=== PATIENT | male | born 1960 | race Caucasian/White ===

== ENCOUNTER 2017-06-11 13:18 | Emergency (ER) | payer SELFPAY ==
[~2017-06-11 13:18] MED LIST: Iopamidol 370 76% 100 ML VIAL ONE
[2017-06-11 13:50] LABS: #Basophils 0.1 thou/uL (0.0-0.2); #Eosinphils 0.2 thou/uL (0.0-0.7); #Lymphocytes 2.2 thou/uL (1.20-3.40); #Monocytes 0.5 thou/uL (0.11-0.59); #Neutrophils 5.7 thou/uL (1.40-6.50); %Basophils 1.3 % (0.0-1.0); %Eosinophils 2.5 % (0.0-10.0); %Lymphocytes 25.7 % (21.0-51.0); %Monocytes 5.7 % (0.0-10.0); Mean Platelet Volume 8.9 fL (7.4-10.4); White Blood Cell (WBC) Count 8.7 thou/uL (4.8-10.8)
--- NOTE | 2017-06-11 13:59 | RAD ---
LEFT SHOULDER THREE VIEWS: History: Shoulder pain. FINDINGS: No evidence of fracture or dislocation. AC joint normally aligned. IMPRESSION: No acute abnormality. POS: [facility]
--- NOTE | 2017-06-11 14:01 | RAD ---
TWO VIEW CHEST: History: Chest pain. FINDINGS: Lungs appear clear. No infiltrate identified. The vascular and interstitial markings are mildly prom inent. No effusion. IMPRESSION: Mild increased interstitial markings. No focal infiltrate identified. POS: [facility]
[2017-06-11 14:04] LABS: ALT (SGPT) 36 U/L (8-55); AST (SGOT) 32 U/L (5-34); Alkaline Phosphatase 109 U/L (40-150); Anion Gap 13 mmol/L (10-20); BUN (Urea Nitrogen) 16 mg/dL (8.4-25.7); Bilirubin, Total 0.6 mg/dL (0.2-1.2); Calc. Creatinine Clearance 0 mL/min (70-130); Calcium 9.8 mg/dL (7.8-10.44); Carbon Dioxide 27 mmol/L (22-29); Chloride 102 mmol/L (98-107); Estimated GFR-MDRD Greater than 90; Globulin 3.7 g/dL (2.4-3.5)
[2017-06-11 14:05] LABS: Troponin I Less than 0.010 ng/mL (< 0.028)
--- NOTE | 2017-06-11 15:41 | CT ---
CT ARTERIOGRAM CHEST WITH IV CONTRAST AND 3D MIP IMAGING: History: Chest pain, dyspnea. FINDINGS: There is good contrast opacification of the pulmonary arteries with the exception of an artery leadi ng to a lobulated mass in the right lower lobe. The mass is 1.9 x 1.8 cm greatest diameters on the a xial images. There is nodular peripheral scarring or atelectasis at the left anterior lung base and left lateral lung base. Lobulated left hilar adenopathy measures up to 6.9 cm in length x 2.9 cm width. No pneumothorax is a pparent. Old ununited right posterior rib fracture evident. IMPRESSION: 1. Left lower lobe mass with left hilar adenopathy. Lung neoplasm is favored. 2. No CT evidence of pulmonary embolus. POS: [facility]
--- NOTE | 2017-08-02 11:38 | EKG ---
Test Reason : LT ARM PAIN Blood Pressure : / mmHG Vent. Rate : 105 BPM Atrial Rate : 340 BPM P-R Int : 000 ms QRS Dur : 078 ms QT Int : 346 ms P-R-T Axes : 000 017 010 degrees QTc Int : 457 ms Atrial fibrillation with rapid ventricular response Abnormal ECG Confirmed by NALDO KAUFMAN D.O. ([id number]), content editor WILLIAM MUJICA ([id number]) on 08/02/2017 11:38:10 AM Referred By: MARY Confirmed By:NALDO KAUFMAN D.O.
--- NOTE | 2017-08-02 11:38 | EKG ---
Test Reason : Blood Pressure : / mmHG Vent. Rate : 092 BPM Atrial Rate : 277 BPM P-R Int : 000 ms QRS Dur : 090 ms QT Int : 382 ms P-R-T Axes : 000 002 004 degrees QTc Int : 472 ms Atrial fibrillation Inferior infarct , age undetermined Abnormal ECG Confirmed by NALDO KAUFMAN D.O. ([id number]), telegraph editor WILLIAM MUJICA ([id number]) on 08/02/2017 11:38:26 AM Referred By: Confirmed By:NALDO KAUFMAN D.O.
== END 2017-06-11 16:04 | disposition home or self-care (01) ==
LOC: SCSER 13:18
DX: M25.512 Pain in left shoulder (principal); I48.91 Unspecified atrial fibrillation; I10 Essential (primary) hypertension; R91.8 Other nonspecific abnormal finding of lung field; F17.210 Nicotine dependence, cigarettes, uncomplicated; Z79.82 Long term (current) use of aspirin
CPT/HCPCS: 71020; 71275; 80053; 82553; 84484; 85025; 85379; 93005; 96360; 99406

== ENCOUNTER 2017-08-19 22:08 | Inpatient (IN) | payer SELFPAY ==
[2017-08-20] MEDS ORDERED: Morphine 4 MG/ML VIAL ONE (00:13)
[2017-08-20 00:23] LABS: Actual Bicarbonate (HCO3a) 22.7 mEq/L (22-26); Base Excess (BEa) -0.8 mEq/L (0 (+/-) 2.5); CO2 Tension 34.2 mmHg (35.0-45.0); O2 Tension (PaO2) 68.5 mmHg (80.0-100.0); pH, Arterial 7.44 (7.35-7.45)
[2017-08-20 00:24] LABS: Analyzer IN Cardio ER; Calcium, Ionized 1.2 mmol/L (1.12-1.30); Hemoglobin (Hb) 12.5 g/dL (14.0-18.0); Puncture Site LRA
[2017-08-20 00:43] LABS: CKMB 0.8 ng/mL (0-6.6); Troponin I Less than 0.010 ng/mL (< 0.028)
[2017-08-20 01:54] LABS: Actual Bicarbonate (HCO3a) 23.1 mEq/L (22-26); Base Excess (BEa) -0.9 mEq/L (0 (+/-) 2.5); CO2 Tension 36.4 mmHg (35.0-45.0); O2 Tension (PaO2) 78.1 mmHg (80.0-100.0); pH, Arterial 7.42 (7.35-7.45)
[2017-08-20 01:55] LABS: Calcium, Ionized 1.2 mmol/L (1.12-1.30); Hematocrit-ABG 40.2 % (42.0-52.0); Hemoglobin (Hb) 12.5 g/dL (14.0-18.0)
[2017-08-20 01:56] LABS: Analyzer IN Cardio ER; Puncture Site LRA
[2017-08-20] MEDS ORDERED: HYDROcodone/Acetaminophen 5/325 mg Tablet ONE ×3 (02:02→13:46)
[2017-08-20] MEDS ORDERED: Lorazepam 2 MG/ML VIAL ONE (02:42)
[2017-08-20] MEDS ORDERED: HYDROcodone/Acetaminophen 5/325 mg Tablet PO PRN ×2 (03:34→04:42)
[2017-08-20] MEDS ORDERED: Morphine 10 MG/ML CARPUJECT SLOW IVP PRN (03:36)
[2017-08-20] MEDS ORDERED: Ondansetron HCl/PF 4 MG/2 ML Vial IVP PRN (03:40)
[2017-08-20] MEDS ORDERED: Ondansetron ODT 4 MG TAB SL PRN (03:40)
[2017-08-20] MEDS ORDERED: Acetaminophen 325 MG TAB PO PRN ×2 (03:40→04:42)
[2017-08-20] MEDS ORDERED: Lorazepam 2 MG/ML VIAL SLOW IVP SCH (03:45)
[2017-08-20] MEDS ORDERED: Senokot 8.6 MG TAB PO PRN (04:42)
[2017-08-20] MEDS ORDERED: Bisacodyl 5 MG TAB PO PRN (04:42)
[2017-08-20] MEDS ORDERED: cloNIDine 0.1 MG TAB PO PRN (04:42)
[2017-08-20] MEDS ORDERED: hydrALAZINE 20 MG/ML VIAL SLOW IVP PRN (04:42)
[2017-08-20] MEDS ORDERED: Nitroglycerin 0.4 MG TAB (25 Tab Bottle) SL PRN (04:42)
[2017-08-20] MEDS ORDERED: Mag-Al 1200 mg/1200 mg/30 ML UDCUP PO PRN (04:42)
[2017-08-20] MEDS ORDERED: Calcium Carbonate 500 MG ChewTAB PO PRN (04:42)
[2017-08-20] MEDS ORDERED: Loratadine 10 MG TAB PO PRN (04:42)
[2017-08-20 04:57] LABS: Troponin I Less than 0.010 ng/mL (< 0.028)
--- NOTE | 2017-08-20 06:26 | HP ---
DATE OF ADMISSION: 08/20/2017 PRIMARY CARE PHYSICIAN: Junior Washington M.D. CHIEF COMPLAINT: Chest pain. HISTORY OF PRESENT ILLNESS: Mr. Marie is a 57-year-old male with past medical history of hyperten davion and "irregular heartbeat" who presented to the Emergency Room in [place] with above-mentioned c omplaint. History is mainly obtained by the patient himself, but he is not able to provide much hist ory because of the BiPAP machine and persistent pain. History is mainly obtained by the record herbie mcdowell. Mr. Marie presented to [place] with complaints of left-sided drooping, difficulty breathing. He reported that he fell on 08/10/2017 and landed on the stairs to his tractor trailer with immediate pa in in the left lower rib. He saw his primary care physician on the 08/14/2017 and got some pain medi cations, but abruptly his symptoms worsened and he is more short of breath now and his pain has also worsened. He has not been having any specific fever or chills or cough. He denies any sick contacts . He denies any palpitations. Upon presentation to outside emergency room, his blood pressure was 174/90 and a pulse of 135. He wa s hypoxic with saturation of 91% on room air and he was tachypneic with respirations in 30s , tempera ture 98.5. He underwent general workup including a 12-lead EKG, which showed atrial fibrillation wit h rapid ventricular rate. He also underwent a CT angio of his chest, which showed low body infiltrat e bilaterally as well as left-sided segmental pulmonary embolism. He received one dose of subcutaneo us Lovenox 1 mg/kg dose as well as Rocephin and pain medications and was transferred to our facility. In our emergency room, he was in normal sinus rhythm; however, tachycardic. An ABG was done, which s howed CO2 of 34 and oxygen of 68 with a pH of 7.4. He was briefly treated with BiPAP and is now lit ayala admitted to [facility]. At the time of my evaluation, he wants to take the BiPAP off and will be evaluat ed on nasal cannula if he can keep his oxygen saturation up with just the help of oxygen by nasal can nuagata. PAST MEDICAL HISTORY: 1. Hypertension. 2. Dyslipidemia. 3. "Irregular heart rhythm." PAST SURGICAL HISTORY: None. PSYCHIATRIC HISTORY: No Anxiety, depression. SOCIAL HISTORY: He drinks socially, rarely; however, smokes 1 pack of cigarettes per day. No histor y of drug abuse. FAMILY HISTORY: Denies any history of blood clots or heart attacks in his family. ALLERGIES: No known medication allergies. CURRENT MEDICATIONS: Coumadin is listed as his home medication, but he is not able to provide much i nformation about that. He continues to complain of significant generalized pain and worse in his left chest going to his carolyn k. Otherwise unremarkable. REVIEW OF SYSTEMS: The following complete review of systems was negative, unless otherwise mentioned in the HPI or below: Constitutional: Weight loss or gain, ability to conduct usual activities. Skin: Rash, itching. Eyes: Double vision, pain. ENT/Mouth: Nose bleeding, neck stiffness, pain, tenderness. Cardiovascular: Palpitations, dyspnea on exertion, orthopnea. Respiratory: Shortness of breath, wheezing, cough, hemoptysis, fever or night sweats. Gastrointestinal: Poor appetite, abdominal pain, heartburn, nausea, vomiting, constipation, or diarr hea. Genitourinary: Urgency, frequency, dysuria, nocturia. Musculoskeletal: Pain, swelling. Neurologic/Psychiatric: Anxiety, depression. Allergy/Immunologic: Skin rash, bleeding tendency. LABORATORY EXAMINATION: His CBC shows WBCs at 21.7, platelet count of 194, hemoglobin 15.1, D-dimer elevated to 9.54. His serum chemistries show sodium of 135, chloride 97, glucose of 116, BNP of 281, otherwise unremarkable. Cardiac enzymes, troponin less than 0.010 x3. Chest x-ray by my review bita llanes at [place] [facility] shows mild to moderate pleural effusions bilaterally and left lower lobe infiltrate. CT angio is showing left lower lobe pulmonary embolism and probably in the right lower lobe branches as well as read by the radiologist. PHYSICAL EXAMINATION: VITAL SIGNS: Most recent vital signs, blood pressure 120/74, pulse of 88, respirations 24, temperatu re 98.5, saturating 95% on 3 liters oxygen by nasal cannula. Please note that these vital signs are from last night before he was put on BiPAP. GENERAL: He is fast asleep, but easily awoken. Immediately after waking up, he starts to get uncomf ortable and complains of pain on the side and wants the BiPAP off. No acute distress noticed. HEENT: Mucous membrane is moist and pink. No oropharyngeal exudate or erythema. Head is normocepha lic, atraumatic. Pupils are equal, reactive to light and accommodation. NECK: Supple without any lymphadenopathy, JVD or bruit. CHEST: Decreased breath sounds at bases without any wheezing, rales or rhonchi. Rate and rhythm is regular without any murmur, rubs or gallops. ABDOMEN: Obese, soft, nontender, nondistended with positive bowel sounds. EXTREMITIES: Free of any cyanosis, clubbing, or edema. NEUROLOGIC: Nonfocal. SKIN: Free of any rashes or bruises. Feels warm and dry to touch. PSYCHIATRIC: Mild anxiety noticed. IMPRESSION AND PLAN: 1. Bilateral pulmonary embolism. It is unclear if the patient is on Coumadin or not. We will need to confirm this from the pharmacy in the morning. Nevertheless, he will be started on treatment with 1 mg/kg of Lovenox b.i.d. for now. We will consult Pulmonary Medicine in the morning. We will try to wean him off of the BiPAP as the patient is eager to take the mask off and seems to be intolerant of it. He is a FULL CODE as I have discussed with him. 2. Community-acquired pneumonia. The patient has received Rocephin in the emergency room. At this time, we will continue with broad spectrum IV antibiotic in the form of levofloxacin. Blood cultures have been obtained and we will follow the results. 3. Atrial fibrillation with rapid ventricular response. The patient gives a vague history, which se ems that he might have history of atrial fibrillation, but nothing is documented in [facility]. We satish l go ahead and obtain 2D echocardiogram and consult Cardiology. The most likely scenario is atrial f ibrillation secondary to pulmonary embolism as well as pneumonia and sepsis. He will be on b.i.d. do se of Lovenox for the pulmonary embolism, which will provide adequate anticoagulation for atrial fibr illation as well. He is currently in normal sinus rhythm. We will request recommendations from Card iology as well. 4. Leukocytosis. This is secondary to sepsis and pneumonia. Continue to monitor and recheck labs i n the morning. 5. Sepsis. Antibiotics as above. We will add vancomycin until blood culture results are available. Continue gentle IV fluids and sepsis protocol. 6. Elevated BNP. The patient appears euvolemic at this time. We will obtain 2D echocardiogram to r ule out any cardiac dysfunction. 7. History of hypertension. Restart his home medication once confirmed and use p.r.n. antihypertens josy still then. 8. Code status: FULL CODE, discussed with the patient. 9. Deep venous thrombosis and gastrointestinal prophylaxis. DISPOSITION: Mr. Marie is being admitted to the Critical Care Unit for bilateral pulmonary emboli sm, pneumonia and atrial fibrillation with RVR. He can be stepped down to IMCU if he is able to be w eaned off of his BiPAP. Further management will depend upon his clinical course. He is critically i ll at this time.
[2017-08-20] MEDS ORDERED: Morphine 2 MG/ML SYRINGE ONE (06:42)
[2017-08-20] MEDS ORDERED: Enoxaparin Sodium 100 MG/ML SYRINGE SC SCH (09:00)
[2017-08-20] MEDS: Enoxaparin Sodium 100 MG/ML SYRINGE SC SCH ×2 (09:43→20:08)
[2017-08-20] MEDS ORDERED: Albuterol Sulfate 2.5 mg/3 ml Neb NEB PRN (11:09)
[2017-08-20] MEDS: Vancomycin HCl 1 GM in Premix Bag 1 BAG IVPB SCH ×2 (11:14→20:10)
[2017-08-20] MEDS ORDERED: FLU VACC QS2017-18 36 mo. & older 0.5 ML SYRINGE IM ONE (11:15)
[2017-08-20] MEDS ORDERED: Prevnar 13-Val Conj/PF 0.5 ML SYRINGE IM ONE (11:15)
[2017-08-20 11:29] LABS: ALT (SGPT) 20 U/L (8-55); AST (SGOT) 19 U/L (5-34); Albumin 3.7 g/dL (3.5-5.0); Alkaline Phosphatase 71 U/L (40-150); Anion Gap 14 mmol/L (10-20); BUN (Urea Nitrogen) 16 mg/dL (8.4-25.7); Calc. Creatinine Clearance 135 mL/min (70-130); Calcium 9.6 mg/dL (7.8-10.44); Carbon Dioxide 24 mmol/L (22-29); Chloride 101 mmol/L (98-107); Estimated GFR-MDRD Greater than 90; Globulin 3.7 g/dL (2.4-3.5); Glucose 108 mg/dL (70-105); Potassium 4.6 mmol/L (3.5-5.1); Protein, Total 7.4 g/dL (6.0-8.3); Sodium 134 mmol/L (136-145)
[2017-08-20 11:30] LABS: INR-International Normal Ratio 2.1; Prothrombin Time 24.5 SEC (12.0-14.7)
[2017-08-20 11:31] LABS: PTT 64.7 SEC (22.9-36.1)
--- NOTE | 2017-08-20 11:39 | RAD ---
CHEST 1 VIEW: Date: 08/20/17 HISTORY: Dyspnea. COMPARISON: 08/19/17. FINDINGS: Cardiac silhouette is magnified and upper limits of normal in size. It is partially obscured by worse janna bibasilar infiltrates. Pulmonary vasculature is engorged. No evidence of pneumothorax. Cardiac m onitor leads overlie the chest. IMPRESSION: Worsening pulmonary vascular congestion and patchy bibasilar infiltrates. POS: [facility]
--- NOTE | 2017-08-20 13:05 | CON ---
DATE OF CONSULTATION: 08/20/2017 REASON FOR CONSULTATION: Pulmonary embolism and pneumonia. HISTORY OF PRESENT ILLNESS: The patient is a 57-year-old male who is followed by Dr. Washington on an o utpatient basis with a history of an irregular heartbeat for which he takes Coumadin. He came to the emergency room last night with left-sided chest pain which was worse with inspiration. Symptoms hav e been present for about 2 days prior. He had not taken any medication for that. PAST MEDICAL HISTORY: Hypertension, hyperlipidemia. PAST SURGICAL HISTORY: None. SOCIAL HISTORY: He drinks about a case of beer per year, smokes 1 pack of cigarettes per day. Does not use any illicit drugs. He works in the [employer] field. FAMILY MEDICAL HISTORY: Unremarkable for pulmonary embolus. ALLERGIES: None. MEDICATIONS PRIOR TO ADMISSION: He says he was taking Coumadin at home. REVIEW OF SYSTEMS: Twelve point review of systems otherwise negative except for that listed above. PHYSICAL EXAMINATION: VITAL SIGNS: Temperature 99.1, pulse 98, respirations 34, O2 sat 99% on 3 liters, blood pressure 144 /65. GENERAL: He is awake and alert and in no distress. HEENT: Pupils react, sclerae anicteric. Oropharynx poor dentition. NECK: No JVD. LUNGS: Clear to auscultation anteriorly, slightly diminished breath sounds in the left base posterio rly. CARDIAC: S1, S2 regular, without murmur, rub or gallop. ABDOMEN: Soft, nontender. He has a bruise in his right lower quadrant from Lovenox injection. EXTREMITIES: No clubbing, cyanosis, or edema. LABORATORY DATA: INR was 2.1, PTT 64.7, pH 7.42, pCO2 36, pO2 78. Sodium 134, potassium 4.6, chlori de 101, CO2 24, BUN 16, creatinine 0.8, glucose 108. White blood cell count 21.7, hematocrit 42.3, p latelet count 194. CT pulmonary angiogram was reviewed and demonstrates possible emboli. He had a density in the left l gabriel base in June which now seems to be gone, but he does have some left hilar lymphadenopathy. H e also has a possible infiltrate in the left lower lobe. ASSESSMENT: 1. Pneumonia. 2. Pulmonary embolism. 3. History of atrial fibrillation. PLAN: 1. He was therapeutic on his Coumadin when he came in - I would recommend continuing the warfarin. 2. Agree with antibiotics. 3. He will need to have another CT scan versus x-ray in 4-6 weeks to follow up the lymphadenopathy a nd the nodular region in the left lower lobe. Thank you for the referral. I will follow with you.
[2017-08-20] MEDS: HYDROcodone/Acetaminophen 5/325 mg Tablet PO PRN ×2 (13:48→20:07)
[2017-08-20] MEDS: Warfarin Sodium 3 MG TAB PO SCH (17:02)
--- NOTE | 2017-08-20 20:00 | EKG ---
Test Reason : REPEAT Blood Pressure : / mmHG Vent. Rate : 081 BPM Atrial Rate : 081 BPM P-R Int : 184 ms QRS Dur : 092 ms QT Int : 372 ms P-R-T Axes : 023 003 022 degrees QTc Int : 432 ms Normal sinus rhythm Normal ECG Confirmed by DR. Maryan GARAY ([id number]) on 08/20/2017 8:00:41 PM Referred By: Confirmed By:DR. Maryan GARAY
[2017-08-20] MEDS: guaiFENesin ER 600 MG TAB PO SCH (20:07)
[2017-08-20] MEDS ORDERED: Furosemide 20 MG/2 ML VIAL SLOW IVP SCH (20:15)
[2017-08-20] MEDS ORDERED: Potassium Chloride 20 MEQ TAB PO SCH (20:15)
[2017-08-21] MEDS ORDERED: Ondansetron HCl/PF 4 MG/2 ML Vial IVP PRN (01:26)
[2017-08-21] MEDS ORDERED: Ondansetron ODT 4 MG TAB SL PRN (01:26)
--- NOTE | 2017-08-21 03:12 | CON ---
DATE OF CONSULTATION: 08/20/2017 REASON FOR CONSULTATION: ? Possible atrial fibrillation (no EKGs to document that at the present joss mario alberto). HISTORY OF PRESENT ILLNESS: Mr. Marie is a 57-year-old gentleman with history apparently of pulmo nary embolism who came to the emergency room with difficulty breathing. He had some rapid heart rate , apparently, in the emergency room, he says in [place], the ? atrial fibrillation, but unfortunatel y there is no EKGs from there. He was brought here and was found to have pulmonary emboli, has been treated for that, although he has also apparently been started on Coumadin he said approximately 2 mo nths ago for "blood clots." PAST MEDICAL HISTORY: 1. Hypertension 2. ? pulmonary emboli. 3. Irregular heart rhythm. PAST SURGICAL HISTORY: None. PSYCHIATRIC HISTORY: He feels anxious now. SOCIAL HISTORY: He does smoke, he is trying to quit. FAMILY HISTORY: No history of coronary artery disease at a young age. ALLERGIES: None known. MEDICATIONS: Coumadin. REVIEW OF SYSTEMS: Constitutional: No significant weight gain or loss. Vision: No changes. Hearing: No changes. Pu lmonary: Positive for shortness of breath. Gastrointestinal: No nausea, vomiting, diarrhea. Skin: No rashes. Neurologic: No unilateral weakness or numbness. Skin: No rashes. PHYSICAL EXAMINATION: GENERAL: This is a pleasant gentleman resting comfortably in no distress. VITAL SIGNS: Blood pressure 136/59, pulse 100. NECK: Neck veins are normkal. Carotid normal upstrokes. LUNGS: Clear. CARDIAC: Normal S1, normal S2. ABDOMEN: Soft, nontender. EXTREMITIES: There is no edema. Peripheral pulses are intact in the feet. SKIN: Warm and dry. LABORATORY DATA: INR was 2.1. Blood gas: pH 7.44, pCO2 of 34, pO2 of 68.5, that was on 28% oxygen, the troponin less than 0.010. BNP 281. Chest x-ray: Pulmonary vascular congestion and patchy basi lar infiltrates. CT scan revealed pulmonary emboli looks to me like a left-sided infiltrate. ASSESSMENT: 1. ? atrial fibrillation, no documentation at the present time. 2. Pulmonary emboli. PLAN: 1. Try to obtain EKGs. 2. Repeat chest x-ray in the morning. 3. Echocardiogram pending. 4. EKG here was normal.
[2017-08-21 05:01] LABS: INR-International Normal Ratio 2.3; Prothrombin Time 26.2 SEC (12.0-14.7)
[2017-08-21] MEDS: Lorazepam 1 MG TAB PO PRN ×3 (05:19→20:46)
[2017-08-21] MEDS: HYDROcodone/Acetaminophen 5/325 mg Tablet PO PRN ×3 (05:21→20:44)
--- NOTE | 2017-08-21 08:22 | RAD ---
AP VIEW CHEST: HISTORY: Dyspnea. FINDINGS: AP view chest was obtained on 08/21/17. Comparison is made to previous exam from 08/19/17. AP view chest demonstrates calcification of the aorta. Some patchy areas of interstitial and lung pl eural calcifications seen. There is also calcification of the mitral annulus. No significant eviden ce of interstitial significant fibrosis. There is decreased extent of airspace opacity in the opacif ied left lower lobe. IMPRESSION: Improving aeration in the left lower lobe significant when compared to the previous day's exam as wel l as previous comparison CTA chest from 08/19/17. POS: [facility]
[2017-08-21] MEDS ORDERED: WARFARIN SODIUM 6 MG PO SCH (09:00)
[2017-08-21] MEDS: guaiFENesin ER 600 MG TAB PO SCH ×2 (09:23→20:46)
[2017-08-21] MEDS: Enoxaparin Sodium 100 MG/ML SYRINGE SC SCH (09:28)
[2017-08-21] MEDS: Vancomycin HCl 1 GM in Premix Bag 1 BAG IVPB SCH ×2 (09:28→20:47)
--- NOTE | 2017-08-21 11:06 | PRG ---
DATE OF SERVICE: 08/21/2017 SUBJECTIVE: He feels better and had no acute complaints. PHYSICAL EXAMINATION: VITAL SIGNS: Temperature 97.7, pulse 117, respirations 22, O2 sat 96% on 4 liters. HEENT: Unremarkable. NECK: No JVD. LUNGS: Clear without wheezing. CARDIAC: S1 and S2 regular. ABDOMEN: Soft. EXTREMITIES: No edema. LABORATORY DATA: INR 2.3. ASSESSMENT: 1. Pneumonitis. 2. Pulmonary embolism. 3. History of atrial fibrillation. PLAN: 1. Continue Coumadin. 2. X-ray is better today. 3. We would complete 7 days of antibiotics with the patient. 4. He will need a CT scan in 3-4 weeks to further evaluate the adenopathy.
--- NOTE | 2017-08-21 13:37 | PDOC.PN ---
- Subjective Encounter Start Date: 08/21/17 Encounter Start Time: 09:00 PAtient is seen today, alert and oriented, he remains SOB or coughing, he c/o of persistant chest pain and SOB. No dizziness. - Objective MAR Reviewed: Yes Vital Signs & Weight: Vital Signs (12 hours) Temp Pulse Resp BP Pulse Ox 08/21/17 11:40 98.5 F 129 H 20 149/79 H 91 L 08/21/17 09:39 117 H 22 H 96 08/21/17 07:50 98.5 F 129 H 20 119/67 92 L 08/21/17 06:21 122 H 25 H 96 08/21/17 03:39 98.4 F 105 H 24 H 133/67 98 08/21/17 02:52 101 H 26 H 97 Weight Weight 197 lb 1.6 oz I&O: 08/20/17 08/21/17 08/22/17 06:59 06:59 06:59 Intake Total 500 Output Total 400 Balance 100 Result Diagrams: 08/20/17 10:55 Radiology Reviewed by me: Yes Phys Exam - Physical Examination HEENT: PERRLA, moist MMs Neck: no nodes, no JVD Respiratory: no rhonchi, wheezing present Cardiovascular: RRR, no significant murmur Gastrointestinal: soft, non-tender Musculoskeletal: no edema, pulses present Neurological: non-focal, normal sensation Psychiatric: normal affect, A&O x 3 Dx/Plan (1) Bilateral pulmonary embolism Code(s): I26.99 - OTHER PULMONARY EMBOLISM WITHOUT ACUTE COR PULMONALE Status : Acute (2) Pneumonia Code(s): J18.9 - PNEUMONIA, UNSPECIFIED ORGANISM Status: Acute Qualifiers: Laterality: bilateral Lung location: lower lobe of lung (3) Acute respiratory failure with hypoxia Code(s): J96.01 - ACUTE RESPIRATORY FAILURE WITH HYPOXIA Status: Acute (4) Atrial fibrillation with RVR Code(s): I48.91 - UNSPECIFIED ATRIAL FIBRILLATION Status: Acute (5) Hypertension Code(s): I10 - ESSENTIAL (PRIMARY) HYPERTENSION Status: Acute - Plan cont current plan of care, continue antibiotics, PT/OT, respiratory therapy, out of bed/ambulate, DVT proph w/lovenox Plan: Pt has persistant SOB , he is on Lovenox and Coumedin INR is therapeutic, he still has Clots in lungs, Will follow pulmonary, he may need IVC filter if he coontinuosly form clots with INR therapeutic or Change to Xarelto or Eliquis. Patient has new oonset Afib, cardiology has been notified by nurse, Will start pt on po Cardizem 60mg PO now, avoide Albuteral meds. Patient bilateral infiltrates on levofloxacin and Rocephin, Continue with nebs iptratropium. Hypertension is well controlled. - Discharge Day Encounter end time: 09:30 Review of Systems - Review of Systems Constitutional: weakness, malaise Eyes: negative: Pain, Vision Change, Conjunctivae Inflammation, Eyelid Inflammation, Redness, Other ENT: negative: Ear Pain, Ear Discharge, Nose Pain, Nose Discharge, Nose Congestion, Mouth Pain, Mouth Swelling, Throat Pain, Throat Swelling, Other Respiratory: Cough, Shortness of Breath, SOB with Excertion, Pleuritic Pain, Wheezing Cardiovascular: chest pain. negative: palpitations, orthopnea, paroxysmal nocturnal dyspnea, edema, light headedness, other Gastrointestinal: negative: Nausea, Vomiting, Abdominal Pain, Diarrhea, Constipation, Melena, Hematochezia, Other Genitourinary: negative: Dysuria, Frequency, Incontinence, Hematuria, Retention , Other Musculoskeletal: negative: Neck Pain, Shoulder Pain, Arm Pain, Back Pain, Hand Pain, Leg Pain, Foot Pain, Other Skin: negative: Rash, Lesions, David, Bruising, Other Neurological: negative: Weakness, Numbness, Incoordination, Change in Speech, Confusion, Seizures, Other - Medications/Allergies Allergies/Adverse Reactions: Allergies Allergy/AdvReac Type Severity Reaction Status Date / Time No Known Drug Allergies Allergy Verified 08/20/17 10:46 Medications: Current Medications Acetaminophen (Tylenol) 650 mg PO Q4H PRN PRN Reason: Headache/Fever or Mild Pain Hydrocodone Bitart/Acetaminophen ([place] 5/325) 1 tab PO Q4H PRN PRN Reason: Mild-Moderate Pain (1-5) Hydrocodone Bitart/Acetaminophen ([place] 5/325) 2 tab PO Q4H PRN PRN Reason: Moderate to Severe Pain (6-10) Last Admin: 08/21/17 12:13 Dose: 2 tab Hydrocodone Bitart/Acetaminophen ([place] 5/325) 1 tab PO Q4H PRN PRN Reason: Moderate Pain (4-6) Al Hydroxide/Mg Hydroxide (Maalox) 15 ml PO Q4H PRN PRN Reason: Heartburn or Indigestion Albuterol Sulfate (Ventolin) 2.5 mg NEB Q2H PRN PRN Reason: Wheezing Albuterol/Ipratropium (Duoneb) 3 ml NEB [id number] [facility] Last Admin: 08/21/17 13:36 Dose: Not Given Benzonatate (Tessalon) 100 mg PO Q4H PRN PRN Reason: Cough Bisacodyl (Dulcolax) 10 mg PO DAILYPRN PRN PRN Reason: Constipation Calcium Carbonate (Tums) 1,000 mg PO Q4H PRN PRN Reason: Heartburn or Indigestion Clonidine (Catapres) 0.1 mg PO Q4H PRN PRN Reason: Systolic BP > 170 Diltiazem HCl (Cardizem Sr) 60 mg PO DAILY [facility] Diltiazem HCl (Cardizem Sr) 60 mg PO 1415 [facility] Stop: 08/21/17 17:00 Last Admin: 08/21/17 13:33 Dose: 60 mg Guaifenesin (Robitussin Sf) 200 mg PO Q4H PRN PRN Reason: Cough Guaifenesin (Mucinex) 1,200 mg PO Q12HR [facility] Last Admin: 08/21/17 09:23 Dose: 1,200 mg Hydralazine HCl (Apresoline) 10 mg SLOW IVP Q4H PRN PRN Reason: Systolic BP > 180 Levofloxacin 750 mg/ Device 150 mls @ 100 mls/hr IVPB 0600 [facility] Last Admin: 08/21/17 05:19 Dose: 150 mls Vancomycin HCl 1 gm/ Device 200 mls @ 200 mls/hr IVPB Q12HR [facility] Last Admin: 08/21/17 09:28 Dose: 200 mls Loratadine (Claritin) 10 mg PO DAILYPRN PRN PRN Reason: Sinus Symptoms Lorazepam (Ativan) 1 mg PO Q4H PRN PRN Reason: Anxiety/Agitation Last Admin: 08/21/17 10:13 Dose: 1 mg Morphine Sulfate (Morphine) 2 mg SLOW IVP Q2H PRN PRN Reason: Moderate to Severe Pain (4-10) Nitroglycerin (Nitrostat) 0.4 mg SL Q5MIN PRN PRN Reason: Chest Pain Senna (Senokot) 2 tab PO HSPRN PRN PRN Reason: Constipation Sodium Chloride (Flush - Normal Saline) 10 ml IVF PRN PRN PRN Reason: Saline Flush Tramadol HCl (Ultram) 50 mg PO Q4H PRN PRN Reason: Moderate Pain (4-6) Warfarin Sodium (Coumadin) 6 mg PO 1700 [facility] Last Admin: 08/20/17 17:02 Dose: 6 mg
[2017-08-21] MEDS ORDERED: Diltiazem HCl SR 60 mg Capsule PO SCH (14:15)
[2017-08-21] MEDS: Warfarin Sodium 3 MG TAB PO SCH (16:40)
--- NOTE | 2017-08-21 20:30 | PRG ---
DATE OF SERVICE: 08/21/2017 SUBJECTIVE: Mr. Marie is having severe pain when he coughs as in the side of his chest he said wh ere he fell and hit his chest. He feels short of breath when he has the pain. PHYSICAL EXAMINATION: VITAL SIGNS: His blood pressure is 129/81, pulse is variable, sometimes, he has been in atrial fibri llation with a rate of 130. LUNGS: Rales and scattered rhonchi. No wheezing. CARDIAC: Normal S1, normal S2. ABDOMEN: Soft, nontender. EXTREMITIES: No edema. ASSESSMENT: 1. Paroxysmal atrial fibrillation. 2. Pulmonary emboli. 3. Pain with inspiration and cough appears to be related to his ribs. PLAN: 1. Increase diltiazem. 2. Further care dictated by hospital course.
[2017-08-21 20:39] LABS: Vancomycin, Trough 8.6 ug/mL
[2017-08-21] MEDS ORDERED: Morphine 4 MG/ML Carpuject SLOW IVP PRN (21:13)
[2017-08-22] MEDS: Benzonatate 100 MG CAP PO PRN (01:36)
[2017-08-22] MEDS: traMADol HCl 50 MG TAB PO PRN ×2 (01:36→11:54)
[2017-08-22] MEDS: HYDROcodone/Acetaminophen 5/325 mg Tablet PO PRN ×4 (03:09→19:17)
[2017-08-22] MEDS: Lorazepam 1 MG TAB PO PRN ×4 (03:09→18:02)
[2017-08-22 05:51] LABS: INR-International Normal Ratio 3.8; Prothrombin Time 39.6 SEC (12.0-14.7)
[2017-08-22 07:11] LABS: Anion Gap 15 mmol/L (10-20); BUN (Urea Nitrogen) 20 mg/dL (8.4-25.7); Calc. Creatinine Clearance 129 mL/min (70-130); Calcium 9.5 mg/dL (7.8-10.44); Carbon Dioxide 22 mmol/L (22-29); Chloride 99 mmol/L (98-107); Estimated GFR-MDRD Greater than 90; Glucose 114 mg/dL (70-105); Potassium 3.8 mmol/L (3.5-5.1); Sodium 132 mmol/L (136-145)
[2017-08-22] MEDS ORDERED: Diltiazem HCl SR 60 mg Capsule PO SCH (09:00)
[2017-08-22] MEDS: guaiFENesin ER 600 MG TAB PO SCH ×2 (09:09→20:00)
[2017-08-22] MEDS: Vancomycin HCl 1 GM in Premix Bag 1 BAG IVPB SCH ×2 (09:11→20:02)
--- NOTE | 2017-08-22 09:53 | PDOC.PULPN ---
Progress Note: Subj/Obj - Subjective Date: 08/22/17 Time: 09:52 Narrative: The patient states that he feels better. However, he clearly looks sob - ROS Respiratory: congestion, cough - Objective Allergies/Adverse Reactions: Allergies Allergy/AdvReac Type Severity Reaction Status Date / Time No Known Drug Allergies Allergy Verified 08/20/17 10:46 Medications: Current Medications Acetaminophen (Tylenol) 650 mg PO Q4H PRN PRN Reason: Headache/Fever or Mild Pain Hydrocodone Bitart/Acetaminophen ([place] 5/325) 2 tab PO Q4H PRN PRN Reason: Moderate to Severe Pain (6-10) Last Admin: 08/22/17 09:10 Dose: 2 tab Hydrocodone Bitart/Acetaminophen ([place] 5/325) 1 tab PO Q4H PRN PRN Reason: Moderate Pain (4-6) Al Hydroxide/Mg Hydroxide (Maalox) 15 ml PO Q4H PRN PRN Reason: Heartburn or Indigestion Albuterol Sulfate (Ventolin) 2.5 mg NEB Q2H PRN PRN Reason: Wheezing Albuterol/Ipratropium (Duoneb) 3 ml NEB [id number] [facility] Last Admin: 08/22/17 07:03 Dose: 3 ml Benzonatate (Tessalon) 100 mg PO Q4H PRN PRN Reason: Cough Last Admin: 08/22/17 01:36 Dose: 100 mg Bisacodyl (Dulcolax) 10 mg PO DAILYPRN PRN PRN Reason: Constipation Calcium Carbonate (Tums) 1,000 mg PO Q4H PRN PRN Reason: Heartburn or Indigestion Clonidine (Catapres) 0.1 mg PO Q4H PRN PRN Reason: Systolic BP > 170 Diltiazem HCl (Cardizem Cd) 180 mg PO DAILY [facility] Last Admin: 08/22/17 09:10 Dose: 180 mg Guaifenesin (Robitussin Sf) 200 mg PO Q4H PRN PRN Reason: Cough Guaifenesin (Mucinex) 1,200 mg PO Q12HR [facility] Last Admin: 08/22/17 09:09 Dose: 1,200 mg Hydralazine HCl (Apresoline) 10 mg SLOW IVP Q4H PRN PRN Reason: Systolic BP > 180 Levofloxacin 750 mg/ Device 150 mls @ 100 mls/hr IVPB 0600 [facility] Last Admin: 08/22/17 04:49 Dose: 150 mls Vancomycin HCl 1 gm/ Device 200 mls @ 200 mls/hr IVPB Q12HR [facility] Last Admin: 08/22/17 09:11 Dose: 200 mls Loratadine (Claritin) 10 mg PO DAILYPRN PRN PRN Reason: Sinus Symptoms Lorazepam (Ativan) 1 mg PO Q4H PRN PRN Reason: Anxiety/Agitation Last Admin: 08/22/17 09:14 Dose: 1 mg Morphine Sulfate (Morphine) 2 mg SLOW IVP Q2H PRN PRN Reason: Moderate to Severe Pain (4-10) Last Admin: 08/21/17 23:09 Dose: 2 mg Nitroglycerin (Nitrostat) 0.4 mg SL Q5MIN PRN PRN Reason: Chest Pain Senna (Senokot) 2 tab PO HSPRN PRN PRN Reason: Constipation Sodium Chloride (Flush - Normal Saline) 10 ml IVF PRN PRN PRN Reason: Saline Flush Last Admin: 08/21/17 23:08 Dose: 10 ml Tramadol HCl (Ultram) 50 mg PO Q4H PRN PRN Reason: Moderate Pain (4-6) Last Admin: 08/22/17 01:36 Dose: 50 mg Warfarin Sodium (Coumadin) 6 mg PO 1700 [facility] Last Admin: 08/21/17 16:40 Dose: 6 mg MAR Reviewed: Yes Vital Signs: Vital Signs Temp 97.7 F 08/22/17 08:00 Pulse 123 H 08/22/17 08:00 Resp 18 08/22/17 08:00 BP 131/68 08/22/17 08:00 Pulse Ox 90 L 08/22/17 08:00 Intake & Output 08/21/17 08/22/17 08/22/17 18:59 06:59 18:59 Intake Total 370.5 Output Total 425 Balance -54.5 Intake: Intake, IV Amount 370.5 Levofloxacin 750 mg/D5W 150 750 mg In Premix Bag 1 bag @ 100 mls/hr IVPB 0600 [facility] Rx#:[id number] Morphine 2 mg SLOW IVP 0.5 Q2H PRN Rx#:[id number] Sodium Chloride 0.9% 10 20 ml IVF PRN PRN Rx#: [id number] Vancomycin HCl 1 gm In 200 Premix Bag 1 bag @ 200 mls/hr IVPB Q12HR [facility] Rx# :[id number] Output: Urine 425 Other: Voiding Method Urinal Urinal Urinal Progress Note: Exam - Physical Exam Deviation from normal: Has tachypnea HEENT: PERRLA, sclera anicteric Neck: no nodes, no JVD Cardiovascular: RRR, no significant murmur Respiratory: rales Gastrointestinal: soft, non-tender Musculoskeletal: no edema Neurological: non-focal, moves all 4 limbs Lymphatic: no nodes Psychiatric: normal affect, A&O x 3 Skin: no rash - Labs Result Diagrams: 08/22/17 05:13 Lab results: Laboratory Results - last 24 hr 08/21/17 08/22/17 08/22/17 20:00 05:13 05:13 PT 39.6 H INR 3.8 Sodium 132 L Potassium 3.8 Chloride 99 Carbon Dioxide 22 Anion Gap 15 BUN 20 Creatinine 0.82 Estimated GFR (MDRD) Greater than 90 Glucose 114 H Calcium 9.5 Vancomycin Trough 8.6 Progress Note: A/P - Problems (1) Acute respiratory failure with hypoxia Current Visit: Yes Status: Acute Code(s): J96.01 - ACUTE RESPIRATORY FAILURE WITH HYPOXIA (2) Bilateral pulmonary embolism Current Visit: Yes Status: Acute Code(s): I26.99 - OTHER PULMONARY EMBOLISM WITHOUT ACUTE COR PULMONALE (3) Pneumonia Current Visit: Yes Status: Acute Code(s): J18.9 - PNEUMONIA, UNSPECIFIED ORGANISM Qualifiers: Laterality: bilateral Lung location: lower lobe of lung - Time Spent with Patient Time: 50% of the time was spent in coordination of care (as documented) at patient's floor/unit and/or counseling patient. - Plan Plan: the patient needs to continue the intravenous antibiotics. I think he will require several more days in the hospital. If discharged over the weekend, he will need followup in 3-4 weeks with a repeat CT scan of the chest. His Coumadin dose needs to be reduced and/or held because his INR is 3.8 today
--- NOTE | 2017-08-22 12:20 | PDOC.PN ---
- Subjective Encounter Start Date: 08/22/17 Encounter Start Time: 09:30 Patient is seen today, alert and oriented. No other concern snoted. he continuos to cough and Feeling warm today. - Objective MAR Reviewed: Yes Vital Signs & Weight: Vital Signs (12 hours) Temp Pulse Resp BP Pulse Ox 08/22/17 10:40 127 H 24 H 92 L 08/22/17 08:00 97.7 F 123 H 18 131/68 90 L 08/22/17 07:03 129 H 26 H 90 L 08/22/17 04:00 98.2 F 122 H 20 148/71 H 90 L 08/22/17 03:59 95 08/22/17 03:05 97.9 F 136 H 20 118/67 92 L Weight Weight 197 lb 1.6 oz I&O: 08/21/17 08/22/17 08/23/17 06:59 06:59 06:59 Intake Total 500 370.5 Output Total 400 425 Balance 100 -54.5 Result Diagrams: 08/22/17 05:13 Phys Exam - Physical Examination HEENT: PERRLA, moist MMs Neck: no nodes, no JVD Respiratory: no rhonchi, wheezing present Cardiovascular: RRR, no significant murmur Gastrointestinal: soft, non-tender Musculoskeletal: no edema, pulses present Neurological: non-focal, normal sensation Dx/Plan (1) Bilateral pulmonary embolism Code(s): I26.99 - OTHER PULMONARY EMBOLISM WITHOUT ACUTE COR PULMONALE Status : Acute (2) Pneumonia Code(s): J18.9 - PNEUMONIA, UNSPECIFIED ORGANISM Status: Acute Qualifiers: Laterality: bilateral Lung location: lower lobe of lung (3) Acute respiratory failure with hypoxia Code(s): J96.01 - ACUTE RESPIRATORY FAILURE WITH HYPOXIA Status: Acute (4) Atrial fibrillation with RVR Code(s): I48.91 - UNSPECIFIED ATRIAL FIBRILLATION Status: Acute (5) Hypertension Code(s): I10 - ESSENTIAL (PRIMARY) HYPERTENSION Status: Acute - Plan cont current plan of care, continue antibiotics, PT/OT, respiratory therapy, incentive spirometry, DVT proph w/lovenox - Pt has persistant SOB , he is on Lovenox and Coumedin INR is therapeutic, he still has Clots in lungs, Will follow pulmonary, he may need IVC filter if he coontinuosly form clots with INR therapeutic or Change to Xarelto or Eliquis but since cardiology and pulmonary on board I will leave that decision to them and follow recommedations. --Patient has new oonset Afib, cardiology has been notified by nurse, Will start pt on po Cardizem 60mg PO but Rate not controlled, cardiology recommeded increas dose, avoide Albuteral meds. --Patient bilateral infiltrates on levofloxacin and Rocephin, Continue with nebs iptratropium. --Hypertension is well controlled. DvT prophylaxis: Lovenox. -- Anxiety, Will do Xanax 0.25mg q 6hrs PRN - Discharge Day Encounter end time: 10:00 Review of Systems - Review of Systems Constitutional: sweats Eyes: negative: Pain, Vision Change, Conjunctivae Inflammation, Eyelid Inflammation, Redness, Other ENT: negative: Ear Pain, Ear Discharge, Nose Pain, Nose Discharge, Nose Congestion, Mouth Pain, Mouth Swelling, Throat Pain, Throat Swelling, Other Respiratory: Cough, Shortness of Breath, SOB with Excertion, Pleuritic Pain, Wheezing Cardiovascular: negative: chest pain, palpitations, orthopnea, paroxysmal nocturnal dyspnea, edema, light headedness, other Gastrointestinal: negative: Nausea, Vomiting, Abdominal Pain, Diarrhea, Constipation, Melena, Hematochezia, Other Genitourinary: negative: Dysuria, Frequency, Incontinence, Hematuria, Retention , Other Musculoskeletal: negative: Neck Pain, Shoulder Pain, Arm Pain, Back Pain, Hand Pain, Leg Pain, Foot Pain, Other Skin: negative: Rash, Lesions, David, Bruising, Other Neurological: negative: Weakness, Numbness, Incoordination, Change in Speech, Confusion, Seizures, Other - Medications/Allergies Allergies/Adverse Reactions: Allergies Allergy/AdvReac Type Severity Reaction Status Date / Time No Known Drug Allergies Allergy Verified 08/20/17 10:46 Medications: Current Medications Acetaminophen (Tylenol) 650 mg PO Q4H PRN PRN Reason: Headache/Fever or Mild Pain Hydrocodone Bitart/Acetaminophen ([place] 5/325) 2 tab PO Q4H PRN PRN Reason: Moderate to Severe Pain (6-10) Last Admin: 08/22/17 09:10 Dose: 2 tab Hydrocodone Bitart/Acetaminophen ([place] 5/325) 1 tab PO Q4H PRN PRN Reason: Moderate Pain (4-6) Al Hydroxide/Mg Hydroxide (Maalox) 15 ml PO Q4H PRN PRN Reason: Heartburn or Indigestion Albuterol Sulfate (Ventolin) 2.5 mg NEB Q2H PRN PRN Reason: Wheezing Albuterol/Ipratropium (Duoneb) 3 ml NEB [id number] [facility] Last Admin: 08/22/17 10:40 Dose: 3 ml Benzonatate (Tessalon) 100 mg PO Q4H PRN PRN Reason: Cough Last Admin: 08/22/17 01:36 Dose: 100 mg Bisacodyl (Dulcolax) 10 mg PO DAILYPRN PRN PRN Reason: Constipation Calcium Carbonate (Tums) 1,000 mg PO Q4H PRN PRN Reason: Heartburn or Indigestion Clonidine (Catapres) 0.1 mg PO Q4H PRN PRN Reason: Systolic BP > 170 Diltiazem HCl (Cardizem Cd) 180 mg PO DAILY [facility] Last Admin: 08/22/17 09:10 Dose: 180 mg Guaifenesin (Robitussin Sf) 200 mg PO Q4H PRN PRN Reason: Cough Guaifenesin (Mucinex) 1,200 mg PO Q12HR [facility] Last Admin: 08/22/17 09:09 Dose: 1,200 mg Hydralazine HCl (Apresoline) 10 mg SLOW IVP Q4H PRN PRN Reason: Systolic BP > 180 Levofloxacin 750 mg/ Device 150 mls @ 100 mls/hr IVPB 0600 [facility] Last Admin: 08/22/17 04:49 Dose: 150 mls Vancomycin HCl 1 gm/ Device 200 mls @ 200 mls/hr IVPB Q12HR [facility] Last Admin: 08/22/17 09:11 Dose: 200 mls Loratadine (Claritin) 10 mg PO DAILYPRN PRN PRN Reason: Sinus Symptoms Lorazepam (Ativan) 1 mg PO Q4H PRN PRN Reason: Anxiety/Agitation Last Admin: 08/22/17 09:14 Dose: 1 mg Morphine Sulfate (Morphine) 2 mg SLOW IVP Q2H PRN PRN Reason: Moderate to Severe Pain (4-10) Last Admin: 08/21/17 23:09 Dose: 2 mg Nitroglycerin (Nitrostat) 0.4 mg SL Q5MIN PRN PRN Reason: Chest Pain Senna (Senokot) 2 tab PO HSPRN PRN PRN Reason: Constipation Sodium Chloride (Flush - Normal Saline) 10 ml IVF PRN PRN PRN Reason: Saline Flush Last Admin: 08/21/17 23:08 Dose: 10 ml Tramadol HCl (Ultram) 50 mg PO Q4H PRN PRN Reason: Moderate Pain (4-6) Last Admin: 08/22/17 11:54 Dose: 50 mg Warfarin Sodium (Coumadin) 6 mg PO 1700 [facility] Last Admin: 08/21/17 16:40 Dose: 6 mg
[2017-08-22] MEDS: Diabetic Tussin 200 MG/10 ML UDCUP PO PRN ×2 (13:31→18:07)
[2017-08-22 15:36] LABS: CO2 Tension 30.1 mmHg (35.0-45.0); O2 Tension (PaO2) 50.2 mmHg (80.0-100.0); pH, Arterial 7.43 (7.35-7.45)
[2017-08-22 15:39] LABS: Actual Bicarbonate (HCO3a) 19.7 mEq/L (22-26); Base Excess (BEa) -3.6 mEq/L (0 (+/-) 2.5); Hematocrit-ABG 42.2 % (42.0-52.0); Hemoglobin (Hb) 12.4 g/dL (14.0-18.0)
[2017-08-22 15:40] LABS: Calcium, Ionized 1.1 mmol/L (1.12-1.30); Puncture Site RRA
[2017-08-22 15:42] LABS: ALV-art Gradient 198.975 (0-20)
[2017-08-22] MEDS ORDERED: Digoxin 0.5 MG/2 ML AMP SLOW IVP SCH ×2 (15:45→18:00)
--- NOTE | 2017-08-22 15:56 | PRG ---
DATE OF CONSULTATION: 08/22/2017 SUBJECTIVE: Mr. Marie continues to have a rapid heart rate about 120-130 beats a minute, atrial f ibrillation, previously was paroxysmal and now it is persistent. The patient continues to have some trouble breathing and it hurts when he coughs. PHYSICAL EXAMINATION: VITAL SIGNS: Blood pressure 133/67, pulse 110-130, atrial fibrillation. LUNGS: No wheezing. CARDIAC: Irregularly irregular and tachycardic. ABDOMEN: Soft and nontender. ASSESSMENT: 1. Atrial fibrillation, now persistent rates. Continued to be high despite diltiazem CD 180 mg a da y. 2. Chronic obstructive pulmonary disease. 3. History of pulmonary emboli. PLAN: 1. Continue Coumadin. 2. Increase diltiazem with tomorrow's dose. 3. Add digoxin. We will give loading dose today intravenously and oral dose tomorrow. 4. Coumadin levels are high. Coumadin is being held currently. Dr. Brown is to see this too [place]
--- NOTE | 2017-08-22 16:03 | RAD ---
FRONTAL RADIOGRAPH CHEST 08/22/17 COMPARISON: 08/20/17 and 08/19/17. HISTORY: Shortness of breath. FINDINGS: A prior study in this patient's jacket labeled 08/21/17 is actually not this patient's radiograph. Steph s, the most recent prior radiograph is the 08/20/17 exam. When compared to the 08/20/17 examination, the pleural and parenchymal opacity within the left hemitho rax is worsened significantly. The left pleural effusion present is now moderate to large. There is s hift of the mediastinal structures slightly to the right, slightly worsened. Perihilar and bibasilar air space disease is noted, left greater than right, worsened. IMPRESSION: Marked enlargement in previously noted left pleural effusion, now moderate to large in size. There is significant worsening of bilateral perihilar and bibasilar interstitial and alveolar opacity. POS: [facility]
[2017-08-22] MEDS ORDERED: Lidocaine 1% (PF) 30 ML VIAL ONE (16:18)
[2017-08-22 17:18] LABS: Body Fluid Source PLEURAL FLUID; Clarity Cloudy/Turbid (Clear)
[2017-08-22 17:19] LABS: BF Color Yellow; BF RBC Count - Manual 4925 /cumm; RBC Background Count 0.003; Tube # EDTA; WBC/NonHematic-Auto 2460 /cumm
[2017-08-22 17:23] LABS: Pleural Fluid, Protein 4.7 g/dL
[2017-08-22] MEDS ORDERED: Furosemide 20 MG/2 ML VIAL SLOW IVP SCH (18:00)
--- NOTE | 2017-08-22 18:39 | RAD ---
CHEST ONE VIEW 08/22/17 HISTORY: Thoracentesis. COMPARISON: Chest one view from same day. FINDINGS: Mild size decrease left layering effusion. Remainder of exam is unchanged. No large pneumothorax. IMPRESSION: Mild interval size decreased left layering pleural effusion without pneumothorax. POS: [facility]
[2017-08-22 19:25] LABS: BF Segmented Neutrophils 75 %; Cell Count Non Hematic 13 %; Eosinophils 1 %; Lymphocytes 10 %
--- NOTE | 2017-08-22 21:10 | PDOC.EVN ---
Event Note - Event Note Event Note: Code green called due to increased resp distress. Vitals noted. Pt in mild resp distress. Stat labs/CXR ordered. Will transfer to [facility] for close monitoring Update(0320 on 08/23/17. RN called - Patient agitated - requiring 4 point restraints. O2 sats dropping due to agitation. Tried BiPAP/Ativan without much help. I d/w Dr Clancy. Will electively intubate - Residents notified.
--- NOTE | 2017-08-22 21:32 | RAD ---
CHEST ONE VIEW 08/22/17 HISTORY: Shortness of breath. COMPARISON: Chest one view same day. FINDINGS: There is continued layering of the left pleural effusion. No pneumothorax. Multifocal air space opaci ties persists. Some of these opacities are nodular in the right lung. IMPRESSION: 1. Continued redistribution of the left layering pleural effusion. 2. Nodular densities both lungs. There is a known left lower lobe pulmonary embolism and the opa cification could be sequela of hemorrhage and infarction. Same is true for the right lower lobe. Cont inued followup recommended. POS: [facility]
[2017-08-22 21:33] LABS: Band 5 % (5-11); Hemoglobin 12.6 g/dL (14.0-18.0); Lymphocytes 6 % (21-51); MDiff Complete? YES; Mean Corpuscular HGB CONC 33.1 g/dL (32.0-36.0); Mean Corpuscular Hemoglobin 31.2 pg (27.0-31.0); Mean Corpuscular Volume 94.1 fl (80.0-94.0); Mean Platelet Volume 7.7 fL (7.4-10.4); Monocytes 3 % (0-10); Neutrophil 86 % (42-75); PLT Morphology Comment Appears Adequate; Platelet Count 324 thou/uL (130-400); RBC Distribution Width 12.5 % (11.5-14.5); Red Blood Cell (RBC) Count 4.03 mill/uL (4.70-6.10); White Blood Cell (WBC) Count 20.4 thou/uL (4.8-10.8)
[2017-08-22 21:38] LABS: ALT (SGPT) 16 U/L (8-55); AST (SGOT) 31 U/L (5-34); Albumin 3.3 g/dL (3.5-5.0); Alkaline Phosphatase 63 U/L (40-150); Anion Gap 16 mmol/L (10-20); BUN (Urea Nitrogen) 21 mg/dL (8.4-25.7); Bilirubin, Total 0.8 mg/dL (0.2-1.2); Calc. Creatinine Clearance 124 mL/min (70-130); Calcium 9.3 mg/dL (7.8-10.44); Carbon Dioxide 20 mmol/L (22-29); Chloride 94 mmol/L (98-107); Estimated GFR-MDRD Greater than 90; Globulin 3.7 g/dL (2.4-3.5); Glucose 112 mg/dL (70-105); Magnesium 1.5 mg/dL (1.6-2.6); Potassium 4.2 mmol/L (3.5-5.1); Sodium 126 mmol/L (136-145)
[2017-08-22 21:41] LABS: CKMB 5.4 ng/mL (0-6.6); Troponin I Less than 0.010 ng/mL (< 0.028)
[2017-08-22] MEDS: Morphine 2 MG/ML SYRINGE SLOW IVP PRN (22:04)
[2017-08-22] MEDS ORDERED: Magnesium 2 GM/NS 0.9% 100 ML 2 GM in Premix Bag 1 BAG IVPB SCH (22:45)
--- NOTE | 2017-08-22 23:17 | OP ---
DATE OF SERVICE: 08/22/2017 HISTORY OF PRESENT ILLNESS: A 57-year-old gentleman. I was called on an emergency basis to see the patient after having severe respiratory distress. PO2 was 50, pCO2 30, pH 7.43 on 40%. Stat chest x -ray showed a massive left pleural effusion which surprisingly had reoccurred overnight. He was clearly having distress. PHYSICAL EXAMINATION: VITAL SIGNS: Heart rate is 130. Otherwise, temperature 99, blood pressure 136/70. CHEST: Decreased breath sounds, left two-thirds, right crackles. CARDIAC: Supraventricular tachycardia. ABDOMEN: Soft. LABORATORY DATA: His INR is 3.8. Emergency blood gases showed severe hypoxemia. Sodium 132. IMPRESSION: 1. Massive left pleural effusion, etiology unclear. Per the Cardiology, it could be traumatic. 2. Congestive heart failure. 3. Pneumonia. 4. Chronic obstructive pulmonary disease. Emergent thoracentesis was performed. DESCRIPTION OF PROCEDURE: After informed consent, the patient's left posterior thorax was cleaned wi th chlorhexidine. A 1% lidocaine was infiltrated into the ninth intercostal in the midscapular line. The pleural cavity was entered and initially about 20 mL of turbid yellow fluid was removed. PH of 7.4. Thereafter, an 8-Romansh catheter was inserted to drain additional fluid. Unfortunately, no fl uid was obtained. Stop-cock probably malfunctioning. I removed the stop-cock. I used an 18-gauge lumbar puncture needle and additional 800 mL. This time, more sanguineous fluid was removed without difficulty. The patient tolerated the procedure well. Pleural effusion was sent for appropriate anne dies including cytology and culture.
[2017-08-23] MEDS: Benzonatate 100 MG CAP PO PRN (00:11)
[2017-08-23] MEDS: Lorazepam 1 MG TAB PO PRN (00:13)
[2017-08-23] MEDS: Morphine 2 MG/ML SYRINGE SLOW IVP PRN (02:27)
[2017-08-23 02:39] LABS: Osmolality, Urine 528 mOsm/kg (300-900)
[2017-08-23 02:57] LABS: Sodium, Urine Less than 20 mmol/L (Not Available)
[2017-08-23] MEDS ORDERED: Lorazepam 2 MG/ML VIAL SLOW IVP SCH (03:30)
[2017-08-23] MEDS ORDERED: Sedation Protocol FS SCH (03:30)
[2017-08-23] MEDS ORDERED: Morphine 2 MG/ML SYRINGE SLOW IVP PRN (03:32)
[2017-08-23] MEDS ORDERED: DISCONTINUE PREVIOUS NARCOTIC PAIN MEDICATIONS AND BENZODIAZEPINES FS SCH (03:32)
[2017-08-23] MEDS: Propofol 1,000 MG/100 ML VIAL IV PRN ×4 (04:00→22:37)
[2017-08-23 04:29] LABS: CO2 Tension 58.5 mmHg (35.0-45.0); O2 Tension (PaO2) 89.9 mmHg (80.0-100.0); pH, Arterial 7.21 (7.35-7.45)
[2017-08-23 04:30] LABS: Base Excess (BEa) -5.4 mEq/L (0 (+/-) 2.5); Calcium, Ionized 1.2 mmol/L (1.12-1.30); Hematocrit-ABG 42.6 % (42.0-52.0); Hemoglobin (Hb) 12.3 g/dL (14.0-18.0); Puncture Site RBRACH
[2017-08-23 04:31] LABS: ALV-art Gradient 549.975 (0-20)
[2017-08-23] MEDS ORDERED: Sodium Chloride 0.9% 1,000 ML IV SCH ×2 (04:45→21:45)
[2017-08-23] MEDS: Acetaminophen 650 MG/20.3 ML UDCUP PO PRN (05:04)
[2017-08-23] MEDS: Lorazepam 2 MG/ML VIAL SLOW IVP PRN ×5 (05:19→17:22)
[2017-08-23 05:32] LABS: Prothrombin Time 63.7 SEC (12.0-14.7)
[2017-08-23 05:38] LABS: INR-International Normal Ratio 6.9
[2017-08-23 05:42] LABS: Anion Gap 14 mmol/L (10-20); BUN (Urea Nitrogen) 23 mg/dL (8.4-25.7); Calc. Creatinine Clearance 115 mL/min (70-130); Carbon Dioxide 22 mmol/L (22-29); Chloride 95 mmol/L (98-107); Estimated GFR-MDRD 85; Glucose 118 mg/dL (70-105); Sodium 127 mmol/L (136-145)
[2017-08-23 05:50] LABS: Bilirubin Small (Negative); Blood, Urine Large (Negative); Clarity TURBID (Clear); Glucose, Urine (Dipstick) Negative (Negative); Leukocyte Negative (Negative); Nitrite Negative (Negative); Protein, Urine (Dipstick) 100 mg/dL (Neg-Trace); Specific Gravity, Urine 1.027 (1.002-1.036)
[2017-08-23 05:55] LABS: Bacteria/HPF None Seen HPF (None Seen); Squamous Epithelial 21-50 HPF (0-3); Yeast-AUWi Flag 19.6 (0-25.0)
[2017-08-23 06:00] LABS: Thyroid Stimulating Hormone 1.2996 uIU/mL (0.35-4.94)
[2017-08-23 06:18] LABS: Hyaline Casts/LPF 0-3 HYALINE CAST LPF (0-3 Hyaline); Other Casts/LPF 0-3 COARSE GRAN LPF (0-3 Hyaline); Oval Fat Bodies/HPF None Seen HPF (None Seen); Renal Epithelial 0-3 HPF (0-3); Sperm/HPF None Seen HPF (None Seen); Transitional Epithelial NONE SEEN HPF (0-3); Trichomonas/HPF None Seen HPF (None Seen); Yeast-All Forms None Seen HPF (None Seen)
--- NOTE | 2017-08-23 06:37 | OP-2 ---
DATE OF PROCEDURE: 08/23/2017 RESIDENT: Rahul Alejo M.D. PROCEDURE: Endotracheal intubation. INDICATION: Acute hypoxic respiratory failure, altered mental status, concern for aspiration pneumon ia. PROCEDURE IN DETAIL: Family Medicine Residents were paged at approximately 0330 hours on 08/23/[address] Clancy recommended endotracheal intubation and mechanical ventilation for patient d ue to acute hypoxic respiratory failure and altered mental status. Consent was not obtained due to t he emergent nature of the procedure. The patient was requiring multiple staff to restrain him due to agitation. The patient received etomidate 30 mg IV to induce anesthesia. Once anesthesia had been achieved, a #4 GlideScope blade was placed into the mouth with uvula, epiglottis and vocal cord landm arks identified. A 7.5 endotracheal tube was attempted to be placed through the vocal cords. Howeve r, the patient vomited and required suctioning. The GlideScope blade was removed, and the patient wa s bagged valve mask ventilated to improve oxygen saturations. The GlideScope was reintroduced, landm arks identified and vocal cords identified. A 7.5 endotracheal tube was passed through the vocal cor ds under direct visualization. The cuff was inflated and placement was confirmed with color capnogra phy and auscultation of lungs. Chest x-ray was taken at this time which revealed the tip of the endo tracheal tube to be approximately 2.5 cm above the jalil. Initial read on the x-ray is still pendin g at this time. The patient tolerated the procedure well and is being placed on IV CCU sedation prot ocol and mechanical ventilation at this time. We will follow up with official read of chest x-ray to confirm endotracheal tube placement.
--- NOTE | 2017-08-23 08:27 | RAD ---
SUPINE PORTABLE CHEST 1 VIEW: Date: 08/23/17 HISTORY: 57-year-old male with respiratory insufficiency. COMPARISON: 08/22/17. FINDINGS: NG tube and endotracheal tubes have been placed and in satisfactory position. Monitor leads overlie t he chest. Extensive bilateral alveolar parenchymal changes in both lungs, particularly the perihilar regions, and mid and upper lung zones, with some left pleural effusion. Overall stable to slightly pr ogressive when compared to the prior study of 08/22/17. IMPRESSION: Somewhat progressive bilateral alveolar and interstitial opacity changes throughout both lungs with s ome left pleural effusion. Tube placement in satisfactory location. POS: [facility]
[2017-08-23 08:30] LABS: Actual Bicarbonate (HCO3a) 20.6 mEq/L (22-26); Base Excess (BEa) -3.6 mEq/L (0 (+/-) 2.5); CO2 Tension 34.4 mmHg (35.0-45.0); Hematocrit-ABG 36.5 % (42.0-52.0); O2 Tension (PaO2) 114.5 mmHg (80.0-100.0)
[2017-08-23 08:31] LABS: Calcium, Ionized 1.1 mmol/L (1.12-1.30); Hemoglobin (Hb) 10.9 g/dL (14.0-18.0); Puncture Site RBA
[2017-08-23] MEDS ORDERED: Cefepime 2 GM in Sodium Chloride 0.9% 100 ML IVPB SCH (09:00)
[2017-08-23] MEDS: Digoxin 0.125 MG TAB PO SCH (09:17)
[2017-08-23] MEDS: Furosemide 20 MG/2 ML VIAL SLOW IVP SCH (09:17)
[2017-08-23] MEDS: fentaNYL Citrate/PF 2,000 MCG in Sodium Chloride 0.9% 60 ML IV SCH (09:17)
[2017-08-23] MEDS: risperiDONE 0.25 MG TAB PO SCH (09:42)
[2017-08-23] MEDS: Cefepime 2 GM, Syringe 2.5 ML in Sterile Water 10 ML SLOW IVP SCH ×2 (10:00→22:27)
--- NOTE | 2017-08-23 12:11 | PRG ---
DATE OF SERVICE: 08/23/2017 He is intubated on the vent and he is extremely agitated. Yesterday a thoracentesis was performed fo r acute hypoxic respiratory distress. His pleural fluid showed a pH 7.4, he had 75 neutrophils, 10 l ymphocytes, 2460 WBCs, protein was 4.7, 608, findings consistent with a parapneumonic effusion. His x-ray once again today shows rather impressive left-sided infiltrate. He had an echo done whic h I was told was otherwise unremarkable except for his atrial fibrillation. He has no family members . PHYSICAL EXAMINATION: VITAL SIGNS: Blood pressure 104/60, sat 100%, temperature 98. CHEST: Chest revealed extensive rhonchi and crackles. CARDIAC: Sinus tachycardia. ABDOMEN: Soft. LABORATORY: His INR is 6.9, PO2 114, pCO2 34, pH 7.40, rate of 24, 100%. Sodium was 125. Creatini ne are normal. IMPRESSION: 1. Respiratory failure. 2. Metabolic encephalopathy. 3. Hyponatremia. 4. Left-sided pneumonia. 5. Pulmonary embolus, over anticoagulated. 6. Electrolyte imbalance. PLAN; Will start nutrition. Vent is being adjusted. Antibiotics, steroids, nebulizer treatments. One-half hour critical care time.
[2017-08-23] MEDS ORDERED: Phytonadione 10 MG/ML AMP SC SCH (13:00)
[2017-08-23 13:31] LABS: Hemoglobin 10.2 g/dL (14.0-18.0); Mean Corpuscular HGB CONC 33.5 g/dL (32.0-36.0); Mean Corpuscular Hemoglobin 31.3 pg (27.0-31.0); Mean Corpuscular Volume 93.5 fl (80.0-94.0); Mean Platelet Volume 7.8 fL (7.4-10.4); Platelet Count 295 thou/uL (130-400); RBC Distribution Width 12.5 % (11.5-14.5); Red Blood Cell (RBC) Count 3.27 mill/uL (4.70-6.10); White Blood Cell (WBC) Count 13.7 thou/uL (4.8-10.8)
[2017-08-23 13:50] LABS: Anion Gap 14 mmol/L (10-20); BUN (Urea Nitrogen) 28 mg/dL (8.4-25.7); Calc. Creatinine Clearance 93 mL/min (70-130); Calcium 8.4 mg/dL (7.8-10.44); Carbon Dioxide 22 mmol/L (22-29); Chloride 95 mmol/L (98-107); Estimated GFR-MDRD 65; Glucose 95 mg/dL (70-105); Potassium 4.2 mmol/L (3.5-5.1); Sodium 127 mmol/L (136-145)
[2017-08-23 13:54] LABS: Band 4 % (5-11); Eosinophils 2 % (0-10); Lymphocytes 9 % (21-51); MDiff Complete? YES; Monocytes 3 % (0-10); Neutrophil 80 % (42-75); PLT Morphology Comment Appears Adequate; Polychromasia SLIGHT = 2-3 cells (100X) (0-2/hpf); Reactive Lymphocytes 2 % (0-10)
--- NOTE | 2017-08-23 14:51 | PDOC.PN ---
- Subjective Encounter Start Date: 08/23/17 Encounter Start Time: 10:30 -: non-verbal Patient is intubated Now. - Objective MAR Reviewed: Yes Vital Signs & Weight: Vital Signs (12 hours) Temp Pulse Resp BP Pulse Ox 08/23/17 14:45 74 23 H 90 L 08/23/17 14:00 24 H 08/23/17 12:00 99.2 F 24 H 08/23/17 11:25 87 93/55 L 08/23/17 11:24 86 26 H 91 L 08/23/17 10:00 27 H 08/23/17 09:17 102 H 08/23/17 09:16 102 H 105/63 08/23/17 08:00 98.2 F 102 H 27 H 90 L 08/23/17 07:13 102 H 105/63 08/23/17 07:04 106 H 29 H 100 08/23/17 06:00 98.6 F 30 H 08/23/17 04:32 139 H 08/23/17 04:00 103.1 F H 102 H 18 98 08/23/17 03:30 153 H 41 H 94 L Weight Admit Weight 201 lb Weight 201 lb 0.985 oz I&O: 08/22/17 08/23/17 08/24/17 06:59 06:59 06:59 Intake Total 1320.5 Output Total 1550 185 Balance -229.5 -185 Result Diagrams: 08/23/17 13:17 08/23/17 13:17 Additional Labs: Accuchecks 08/23/17 13:51 POC Glucose 95 Radiology Reviewed by me: Yes EKG Reviewed by me: Yes Phys Exam - Physical Examination Neck: no nodes, no JVD Respiratory: wheezing present (Reduced lung sounds on the Left.) Cardiovascular: RRR, no significant murmur Gastrointestinal: soft, non-tender Musculoskeletal: pulses present Lymphatic: no nodes Dx/Plan (1) Bilateral pulmonary embolism Code(s): I26.99 - OTHER PULMONARY EMBOLISM WITHOUT ACUTE COR PULMONALE Status : Acute (2) Pneumonia Code(s): J18.9 - PNEUMONIA, UNSPECIFIED ORGANISM Status: Acute Qualifiers: Laterality: bilateral Lung location: lower lobe of lung (3) Acute respiratory failure with hypoxia Code(s): J96.01 - ACUTE RESPIRATORY FAILURE WITH HYPOXIA Status: Acute (4) Atrial fibrillation with RVR Code(s): I48.91 - UNSPECIFIED ATRIAL FIBRILLATION Status: Acute (5) Hypertension Code(s): I10 - ESSENTIAL (PRIMARY) HYPERTENSION Status: Acute (6) Warfarin-induced coagulopathy Code(s): D68.9 - COAGULATION DEFECT, UNSPECIFIED; T45.515A - ADVERSE EFFECT OF ANTICOAGULANTS, INITIAL ENCOUNTER Status: Acute (7) Pleural effusion, left Code(s): J90 - PLEURAL EFFUSION, NOT ELSEWHERE CLASSIFIED Status: Acute - Plan cont current plan of care, continue antibiotics, respiratory therapy - Acute Hypoxic Respiratory failure, pt is intubated,. pulmonary following Vent manageemnt. - Acute Warfarin Coagulopathy, Will do vitamin k 2.5 mg sc to bring it down to <3 - Pt has persistant SOB , he is on Lovenox and Coumedin INR is therapeutic, he still has Clots in lungs, Will follow pulmonary, he may need IVC filter if he coontinuosly form clots with INR therapeutic or Change to Xarelto or Eliquis but since cardiology and pulmonary on board I will leave that decision to them and follow recommedations. --Patient has new oonset Afib, cardiology has been notified by nurse, Tasha. will need to do IV cardizem if rate not controlled. --Patient bilateral infiltrates on levofloxacin and Rocephin, Continue with nebs iptratropium. --Hypertension is well controlled. - Discharge Day Encounter end time: 11:00 Review of Systems - Review of Systems Other: Pt is intubated unable to do ROS - Medications/Allergies Allergies/Adverse Reactions: Allergies Allergy/AdvReac Type Severity Reaction Status Date / Time No Known Drug Allergies Allergy Verified 08/20/17 10:46 Medications: Current Medications Acetaminophen (Tylenol Elixir) 650 mg PO Q6H PRN PRN Reason: Fever > 101 or Mild Pain Last Admin: 08/23/17 05:04 Dose: 650 mg Hydrocodone Bitart/Acetaminophen ([place] 5/325) 2 tab PO Q4H PRN PRN Reason: Moderate to Severe Pain (6-10) Last Admin: 08/22/17 19:17 Dose: 2 tab Hydrocodone Bitart/Acetaminophen ([place] 5/325) 1 tab PO Q4H PRN PRN Reason: Moderate Pain (4-6) Al Hydroxide/Mg Hydroxide (Maalox) 15 ml PO Q4H PRN PRN Reason: Heartburn or Indigestion Albuterol Sulfate (Ventolin) 2.5 mg NEB Q2H PRN PRN Reason: Wheezing Albuterol/Ipratropium (Duoneb) 3 ml NEB [id number] [facility] Last Admin: 08/23/17 14:45 Dose: 3 ml Albuterol/Ipratropium (Duoneb) 3 ml NEB [id number] [id number] Benzonatate (Tessalon) 100 mg PO Q4H PRN PRN Reason: Cough Last Admin: 08/23/17 00:11 Dose: 100 mg Bisacodyl (Dulcolax) 10 mg PO DAILYPRN PRN PRN Reason: Constipation Calcium Carbonate (Tums) 1,000 mg PO Q4H PRN PRN Reason: Heartburn or Indigestion Clonidine (Catapres) 0.1 mg PO Q4H PRN PRN Reason: Systolic BP > 170 Digoxin (Lanoxin) 0.125 mg PO DAILY [facility] Last Admin: 08/23/17 09:17 Dose: 0.125 mg Diltiazem HCl (Cardizem Cd) 240 mg PO DAILY [facility] Last Admin: 08/23/17 09:16 Dose: 240 mg Furosemide (Lasix) 20 mg SLOW IVP DAILY [facility] Last Admin: 08/23/17 09:17 Dose: 20 mg Guaifenesin (Robitussin Sf) 200 mg PO Q4H PRN PRN Reason: Cough Last Admin: 08/22/17 18:07 Dose: 200 mg Hydralazine HCl (Apresoline) 10 mg SLOW IVP Q4H PRN PRN Reason: Systolic BP > 180 Levofloxacin 750 mg/ Device 150 mls @ 100 mls/hr IVPB 0600 [facility] Last Admin: 08/23/17 05:05 Dose: 150 mls Fentanyl Citrate 2,000 mcg/ (Sodium Chloride) 100 mls @ 0 mls/hr IV INF [facility]; Per Protocol PRN Reason: Protocol Stop: 09/22/17 03:32 Last Admin: 08/23/17 09:17 Dose: 100 mls Fentanyl Citrate (Fentanyl Bolus) 250 mls @ 0 mls/hr IVPB PRN PRN; As Directed PRN Reason: Breakthrough pain Stop: 09/22/17 03:32 Diltiazem HCl 125 mg/ Sodium (Chloride) 125 mls @ 0 mls/hr IVPB INF DIAN; Titrate PRN Reason: Protocol Sodium Chloride (Normal Saline 0.9%) 1,000 mls @ 50 mls/hr IV .Q20H [facility] Last Admin: 08/23/17 05:05 Dose: 1,000 mls Cefepime HCl 2 gm/ Syringe 2.5 (ml/ Sterile Water) 12.5 mls @ 150 mls/hr SLOW IVP 1000,2200 [facility] Last Admin: 08/23/17 10:00 Dose: 12.5 mls Loratadine (Claritin) 10 mg PO DAILYPRN PRN PRN Reason: Sinus Symptoms Lorazepam (Ativan) 1 mg PO Q4H PRN PRN Reason: Anxiety/Agitation Last Admin: 08/23/17 00:13 Dose: 1 mg Lorazepam (Ativan) 2 mg SLOW IVP Q2H PRN PRN Reason: Anxiety to achieve [place] 2-3 Stop: 09/22/17 03:32 Last Admin: 08/23/17 13:34 Dose: 2 mg Methylprednisolone Sodium Succinate (Solu-Medrol) 40 mg IVP Q6HR [facility] Last Admin: 08/23/17 13:25 Dose: 40 mg Miscellaneous Medication (Sedation Protocol) 1 each FS ONE [facility] Stop: 09/22/17 03:31 Morphine Sulfate (Morphine) 2 mg SLOW IVP Q2H PRN PRN Reason: Breakthrough pain Stop: 09/22/17 03:32 Nitroglycerin (Nitrostat) 0.4 mg SL Q5MIN PRN PRN Reason: Chest Pain Discontinue Previous Narcotic Pain Medications And Benzodiazepines 1 each FS .ONE [facility] Stop: 09/22/17 03:32 Phytonadione (Aquamephyton) 2.5 mg SC NOW [facility] Stop: 08/23/17 15:00 Propofol (Diprivan) 1,000 mg IV INF PRN; Protocol PRN Reason: TO ACHIEVE PANDEY SCORE 2-3 Stop: 09/22/17 03:32 Last Admin: 08/23/17 09:44 Dose: 1,000 mg Risperidone (Risperidone) 0.25 mg PO DAILY [facility] Last Admin: 08/23/17 09:42 Dose: 0.25 mg Senna (Senokot) 2 tab PO HSPRN PRN PRN Reason: Constipation Sodium Chloride (Flush - Normal Saline) 10 ml IVF PRN PRN PRN Reason: Saline Flush Last Admin: 08/23/17 09:17 Dose: 10 ml Tramadol HCl (Ultram) 50 mg PO Q4H PRN PRN Reason: Moderate Pain (4-6) Last Admin: 08/22/17 11:54 Dose: 50 mg Warfarin Sodium (Coumadin) 6 mg PO 1700 DI[facility] Last Admin: 08/21/17 16:40 Dose: 6 mg
[2017-08-23] MEDS: Warfarin Sodium 3 MG TAB PO SCH (15:12)
[2017-08-23] MEDS: Diltiazem 125 MG in Sodium Chloride 0.9% 100 ML IVPB SCH (17:20)
[2017-08-23] MEDS ORDERED: Sodium Chloride 0.9% 500 ML IV SCH (18:15)
[2017-08-23] MEDS: Sodium Chloride 0.9% 1,000 ML IV SCH (18:38)
[2017-08-24] MEDS: Lorazepam 2 MG/ML VIAL SLOW IVP PRN ×2 (00:01→07:10)
[2017-08-24] MEDS: Propofol 1,000 MG/100 ML VIAL IV PRN ×3 (03:07→11:11)
[2017-08-24] MEDS: Sodium Chloride 0.9% 1,000 ML IV SCH ×2 (05:38→16:21)
[2017-08-24 06:12] LABS: #Lymphocytes 0.8 thou/uL (1.20-3.40); #Monocytes 0.9 thou/uL (0.11-0.59); #Neutrophils 17.7 thou/uL (1.40-6.50); %Basophils 0.1 % (0.0-1.0); %Eosinophils 0.1 % (0.0-10.0); %Lymphocytes 4.1 % (21.0-51.0); %Monocytes 4.5 % (0.0-10.0); %Neutrophils 91.3 % (42.0-75.0); Hemoglobin 10.8 g/dL (14.0-18.0); Mean Corpuscular HGB CONC 33.3 g/dL (32.0-36.0); Mean Corpuscular Hemoglobin 31.7 pg (27.0-31.0); Mean Corpuscular Volume 95.2 fl (80.0-94.0); Mean Platelet Volume 8.3 fL (7.4-10.4); Platelet Count 329 thou/uL (130-400); RBC Distribution Width 12.6 % (11.5-14.5); Red Blood Cell (RBC) Count 3.42 mill/uL (4.70-6.10); White Blood Cell (WBC) Count 19.4 thou/uL (4.8-10.8)
[2017-08-24 06:19] LABS: Prothrombin Time 50.2 SEC (12.0-14.7)
[2017-08-24 06:20] LABS: INR-International Normal Ratio 5.1
[2017-08-24 06:27] LABS: Anion Gap 21 mmol/L (10-20); BUN (Urea Nitrogen) 46 mg/dL (8.4-25.7); Calc. Creatinine Clearance 59 mL/min (70-130); Calcium 8.8 mg/dL (7.8-10.44); Carbon Dioxide 17 mmol/L (22-29); Chloride 99 mmol/L (98-107); Estimated GFR-MDRD 37; Glucose 121 mg/dL (70-105); Potassium 4.9 mmol/L (3.5-5.1); Sodium 132 mmol/L (136-145)
[2017-08-24 08:09] LABS: CO2 Tension 34.2 mmHg (35.0-45.0); pH, Arterial 7.35 (7.35-7.45)
[2017-08-24 08:10] LABS: Actual Bicarbonate (HCO3a) 18.3 mEq/L (22-26); Base Excess (BEa) -6.7 mEq/L (0 (+/-) 2.5)
[2017-08-24 08:11] LABS: Hematocrit-ABG 31.1 % (42.0-52.0); Hemoglobin (Hb) 9.3 g/dL (14.0-18.0)
[2017-08-24 08:12] LABS: Calcium, Ionized 1.1 mmol/L (1.12-1.30); Puncture Site LBA
[2017-08-24] MEDS ORDERED: Midazolam HCl 2 mg/2 ml Vial ONE (08:42)
[2017-08-24] MEDS ORDERED: Midazolam HCl 2 mg/2 ml Vial SLOW IVP SCH (09:00)
[2017-08-24] MEDS ORDERED: Rocuronium Bromide 50 MG/5 ML VIAL IVP PRN (09:23)
--- NOTE | 2017-08-24 09:51 | RAD ---
UPRIGHT PORTABLE CHEST 1 VIEW: Date: 08/24/17 HISTORY: 57-year-old male with respiratory insufficiency. FINDINGS: NG tube and endotracheal tubes remain in place. Extensive bilateral alveolar and interstitial opacity changes throughout both lungs with some confluent parenchymal changes bilaterally. There are some de nse opacity changes in the left lower lateral lung zone. This may well represent a component of pleur al fluid or loculated pleural fluid. IMPRESSION: Overall stable extensive bilateral pleural and parenchymal opacity changes. POS: BRIAN
[2017-08-24] MEDS: Furosemide 20 MG/2 ML VIAL SLOW IVP SCH (09:54)
[2017-08-24] MEDS ORDERED: Rocuronium Bromide 50 MG/5 ML VIAL IVP SCH (10:00)
[2017-08-24] MEDS: Albumin 25% 25 GM/100 ML BOT IVPB SCH ×3 (10:52→23:57)
[2017-08-24] MEDS: Digoxin 0.125 MG TAB PO SCH (11:00)
[2017-08-24] MEDS: Cefepime 2 GM, Syringe 2.5 ML in Sterile Water 10 ML SLOW IVP SCH ×2 (11:02→21:36)
[2017-08-24] MEDS: risperiDONE 0.25 MG TAB PO SCH (11:09)
--- NOTE | 2017-08-24 13:08 | PRG ---
DATE OF SERVICE: 08/24/2017 SUBJECTIVE: Mr. Marie this morning was markedly agitated, thrashing around in spite of heavy brigida tion, Diprivan and fentanyl. He was given 2 of Ativan. Shortly thereafter, he vomited a large volume of coffee ground material as pirated into his chest. Became more agitated. Sats dropped. The x-ray now shows extensive diffuse pulmonary infiltrates. There may be a small possible left apic al pneumo. It is difficult to assess on the x-ray. He has had decreased urine output in the last 24 hours. OBJECTIVE: VITAL SIGNS: Blood pressure is 110/80, pulse 100, respirations 20. He is afebrile. Temperature 98. CHEST: Reveals extensive rhonchi and crackles. CARDIAC: Sinus tachycardia. ABDOMEN: Soft. NEUROLOGICAL: He is encephalopathic. IMPRESSION: 1. Status post aspiration, acute respiratory distress syndrome. 2. Status post thoracentesis, left chest. 3. Encephalopathy. 4. Renal failure. PLAN: Continue Maxipime and Levaquin. Emergency CAT scan has been ordered. Diagnostic bronchoscopy will be performed to assess his airways, therapeutic diagnostic lavage. In the meantime, continue steroids. Supportive care. His long-term prognosis is guarded. Once again, there are no family members here to discuss his care. Note, this is one-half hour critical care time exclusive of the bronchoscopy.
--- NOTE | 2017-08-24 13:37 | PDOC.PN ---
- Subjective Encounter Start Date: 08/24/17 Encounter Start Time: 11:30 -: non-verbal Patient is intubted and Sedated. - Objective MAR Reviewed: Yes Vital Signs & Weight: Vital Signs (12 hours) Temp Pulse Resp BP 08/24/17 11:00 85 08/24/17 10:45 85 97/49 L 08/24/17 10:00 16 08/24/17 09:37 85 97/49 L 08/24/17 08:00 98.8 F 08/24/17 06:52 69 112/56 L 08/24/17 06:49 86 51 H 08/24/17 05:45 27 H 08/24/17 04:00 98.7 F 24 H 08/24/17 03:52 67 114/53 L 08/24/17 02:00 28 H 08/24/17 01:41 63 Weight Admit Weight 201 lb Weight 207 lb 10.807 oz Most Recent Monitor Data Heart Rate from ECG 69 NIBP 83/42 NIBP BP-Mean 51 Respiration from ECG 16 SpO2 100 I&O: 08/23/17 08/24/17 08/25/17 06:59 06:59 06:59 Intake Total 1320.5 5951.7 Output Total 1550 455 205 Balance -229.5 5496.7 -205 Result Diagrams: 08/24/17 03:24 08/24/17 03:24 Additional Labs: Accuchecks 08/24/17 08/24/17 08/23/17 05:43 00:31 18:05 POC Glucose 121 H 122 H 110 08/23/17 13:51 POC Glucose 95 Radiology Reviewed by me: Yes Phys Exam - Physical Examination HEENT: PERRLA, moist MMs Neck: no nodes, no JVD Respiratory: no wheezing, no rales Cardiovascular: RRR, no significant murmur Gastrointestinal: soft, non-tender Musculoskeletal: no edema, pulses present Neurological: non-focal, normal sensation Skin: no rash, normal turgor Dx/Plan (1) Warfarin-induced coagulopathy Code(s): D68.9 - COAGULATION DEFECT, UNSPECIFIED; T45.515A - ADVERSE EFFECT OF ANTICOAGULANTS, INITIAL ENCOUNTER Status: Acute Comment: Inr did not improve much, it is 5.1 today, no external bleeding noted, Will do FFP (2) Acute respiratory failure with hypoxia Code(s): J96.01 - ACUTE RESPIRATORY FAILURE WITH HYPOXIA Status: Acute Comment: Pulmonary managing, Pt on Bilevel support. (3) Bilateral pulmonary embolism Code(s): I26.99 - OTHER PULMONARY EMBOLISM WITHOUT ACUTE COR PULMONALE Status : Acute Comment: Pton INR 5.1, As said above will do 2 untis FFP to avoide any bleeding . (4) Pneumonia Code(s): J18.9 - PNEUMONIA, UNSPECIFIED ORGANISM Status: Acute Qualifiers: Laterality: bilateral Lung location: lower lobe of lung Comment: Pt is on IV antibitoics , improved aeration left lung. (5) Atrial fibrillation with RVR Code(s): I48.91 - UNSPECIFIED ATRIAL FIBRILLATION Status: Acute (6) Hypertension Code(s): I10 - ESSENTIAL (PRIMARY) HYPERTENSION Status: Acute (7) Pleural effusion, left Code(s): J90 - PLEURAL EFFUSION, NOT ELSEWHERE CLASSIFIED Status: Acute Comment: Improving, following pulmonary recomedation, will repeat chest xray daily - Plan cont current plan of care, mancini catheter, continue antibiotics * . - Discharge Day Encounter end time: 12:00 Review of Systems - Review of Systems Other: Unable to get ROS - Medications/Allergies Allergies/Adverse Reactions: Allergies Allergy/AdvReac Type Severity Reaction Status Date / Time No Known Drug Allergies Allergy Verified 08/20/17 10:46 Medications: Current Medications Acetaminophen (Tylenol Elixir) 650 mg PO Q6H PRN PRN Reason: Fever > 101 or Mild Pain Last Admin: 08/23/17 05:04 Dose: 650 mg Hydrocodone Bitart/Acetaminophen ([place] 5/325) 2 tab PO Q4H PRN PRN Reason: Moderate to Severe Pain (6-10) Last Admin: 08/22/17 19:17 Dose: 2 tab Hydrocodone Bitart/Acetaminophen ([place] 5/325) 1 tab PO Q4H PRN PRN Reason: Moderate Pain (4-6) Al Hydroxide/Mg Hydroxide (Maalox) 15 ml PO Q4H PRN PRN Reason: Heartburn or Indigestion Albumin Human (Albumin 25%) 25 gm IVPB Q6HR DI[facility] Stop: 08/26/17 12:01 Last Admin: 08/24/17 10:52 Dose: 25 gm Albuterol Sulfate (Ventolin) 2.5 mg NEB Q2H PRN PRN Reason: Wheezing Albuterol/Ipratropium (Duoneb) 3 ml NEB [id number] [facility] Last Admin: 08/24/17 06:49 Dose: 3 ml Benzonatate (Tessalon) 100 mg PO Q4H PRN PRN Reason: Cough Last Admin: 08/23/17 00:11 Dose: 100 mg Bisacodyl (Dulcolax) 10 mg PO DAILYPRN PRN PRN Reason: Constipation Calcium Carbonate (Tums) 1,000 mg PO Q4H PRN PRN Reason: Heartburn or Indigestion Clonidine (Catapres) 0.1 mg PO Q4H PRN PRN Reason: Systolic BP > 170 Digoxin (Lanoxin) 0.125 mg PO DAILY [facility] Last Admin: 08/24/17 11:00 Dose: Not Given Diltiazem HCl (Cardizem Cd) 240 mg PO DAILY [facility] Last Admin: 08/24/17 10:45 Dose: Not Given Furosemide (Lasix) 20 mg SLOW IVP DAILY [facility] Last Admin: 08/24/17 09:54 Dose: Not Given Guaifenesin (Robitussin Sf) 200 mg PO Q4H PRN PRN Reason: Cough Last Admin: 08/22/17 18:07 Dose: 200 mg Hydralazine HCl (Apresoline) 10 mg SLOW IVP Q4H PRN PRN Reason: Systolic BP > 180 Levofloxacin 750 mg/ Device 150 mls @ 100 mls/hr IVPB 0600 [facility] Last Admin: 08/24/17 05:37 Dose: 150 mls Fentanyl Citrate 2,000 mcg/ (Sodium Chloride) 100 mls @ 0 mls/hr IV INF [facility]; Per Protocol PRN Reason: Protocol Stop: 09/22/17 03:32 Last Admin: 08/23/17 09:17 Dose: 100 mls Fentanyl Citrate (Fentanyl Bolus) 250 mls @ 0 mls/hr IVPB PRN PRN; As Directed PRN Reason: Breakthrough pain Stop: 09/22/17 03:32 Last Admin: 08/24/17 08:04 Dose: 2.5 mls Diltiazem HCl 125 mg/ Sodium (Chloride) 125 mls @ 0 mls/hr IVPB INF [facility]; Titrate PRN Reason: Protocol Last Admin: 08/23/17 17:20 Dose: 125 mls Cefepime HCl 2 gm/ Syringe 2.5 (ml/ Sterile Water) 12.5 mls @ 150 mls/hr SLOW IVP 1000,2200 [facility] Last Admin: 08/24/17 11:02 Dose: 12.5 mls Sodium Chloride (Normal Saline 0.9%) 1,000 mls @ 100 mls/hr IV .Q10H [facility] Last Admin: 08/24/17 05:38 Dose: 1,000 mls Midazolam HCl (Versed) 100 mls @ 0 mls/hr IVPB INF [facility]; Titrate PRN Reason: Protocol Last Admin: 08/24/17 09:49 Dose: 100 mls Loratadine (Claritin) 10 mg PO DAILYPRN PRN PRN Reason: Sinus Symptoms Lorazepam (Ativan) 1 mg PO Q4H PRN PRN Reason: Anxiety/Agitation Last Admin: 08/23/17 00:13 Dose: 1 mg Lorazepam (Ativan) 2 mg SLOW IVP Q2H PRN PRN Reason: Anxiety to achieve Pandey 2-3 Stop: 09/22/17 03:32 Last Admin: 08/24/17 07:10 Dose: 2 mg Methylprednisolone Sodium Succinate (Solu-Medrol) 40 mg IVP Q6HR [facility] Last Admin: 08/24/17 10:53 Dose: 40 mg Miscellaneous Medication (Sedation Protocol) 1 each FS ONE [facility] Stop: 09/22/17 03:31 Morphine Sulfate (Morphine) 2 mg SLOW IVP Q2H PRN PRN Reason: Breakthrough pain Stop: 09/22/17 03:32 Nitroglycerin (Nitrostat) 0.4 mg SL Q5MIN PRN PRN Reason: Chest Pain Discontinue Previous Narcotic Pain Medications And Benzodiazepines 1 each FS .ONE [facility] Stop: 09/22/17 03:32 Pantoprazole Sodium (Protonix) 40 mg IVP Q12HR [facility] Propofol (Diprivan) 1,000 mg IV INF PRN; Protocol PRN Reason: TO ACHIEVE PANDEY SCORE 2-3 Stop: 09/22/17 03:32 Last Admin: 08/24/17 11:11 Dose: 1,000 mg Risperidone (Risperidone) 0.25 mg PO BID [facility] Rocuronium [place] (Zemuron) 70 mg IVP ONE PRN PRN Reason: Agitation Stop: 08/29/17 09:24 Senna (Senokot) 2 tab PO HSPRN PRN PRN Reason: Constipation Sodium Chloride (Flush - Normal Saline) 10 ml IVF PRN PRN PRN Reason: Saline Flush Last Admin: 08/23/17 09:17 Dose: 10 ml Tramadol HCl (Ultram) 50 mg PO Q4H PRN PRN Reason: Moderate Pain (4-6) Last Admin: 08/22/17 11:54 Dose: 50 mg
--- NOTE | 2017-08-24 14:02 | CT ---
CHEST AND ABDOMEN AND PELVIC CT SCAN WITHOUT IV CONTRAST: Date: 08/24/17 HISTORY: 57-year-old male with ARDS. Patient aspirated and has been vomiting. COMPARISON: CT angiogram chest dated 08/19/17. FINDINGS: Prominent increasing left pleural effusion. Small right pleural effusion. Interval development of ext ensive bilateral fine interstitial and alveolar opacities throughout both right and left lungs, inclu ding the upper, mid, and lower lung zones, with more confluent abnormal opacities in the posterior as pects of the upper lung zones and within the lower lobes bilaterally, more marked in the left lower l obe. Endotracheal tube and NG tubes are in place. There is no mediastinal adenopathy. No evidence for pneumothorax. In the abdomen, the gallbladder is upper range of normal size with some minimal diffuse increased den sity in the dependent portion, nonspecific, possibly some minimal sludge. The liver, pancreas, spleen , and adrenal glands are unremarkable as evaluated without IV contrast. There is a small hiatal herni a. There is a 2.4 cm diameter left renal cyst. Normal appearing appendix. No intra-abdominal abscess or abnormal fluid collection. IMPRESSION: Increasing left pleural effusion. Very small right pleural effusion. Markedly progressive diffuse osiel ateral interstitial and reticulonodular and ground-glass opacity changes throughout the right and lef t lungs since the 08/19/17 study. In addition, there are more prominent confluent parenchymal changes in the posterior aspects of the right and left upper lobes, as well as the right and left lower lobe s, with progression of disease when compared to the prior study. The bibasilar changes could certainl y be related to what appears to be extensive bilateral lower lobe pulmonary embolism and represents s ome pulmonary infarction changes. The extensive widespread interstitial and alveolar nonconfluent zoe und-glass type changes are less specific. NG tube and endotracheal tubes in position. Upper range of normal size gallbladder with some possible sludge, but no evidence of wall thickening or pericholecys tic fluid or abnormal fat stranding. Left renal cyst. No evidence for other significant acute process in the abdomen or pelvis. POS: H
--- NOTE | 2017-08-24 14:35 | ULT ---
BILATERAL RENAL ULTRASOUND: Date: 08/24/17 COMPARISON: None. HISTORY: Worsening renal function. TECHNIQUE: Multiplanar Davis scale sonographic imaging of the kidneys and urinary bladder obtained. FINDINGS: Right kidney measures 11.8 x 4.6 x 4.1 cm. No right renal mass, hydronephrosis, or stone seen. Incidental note is made of sludge filling the gallbladder lumen. Urinary bladder is decompressed and contains a Mcgowan catheter. Left kidney measures 11.0 x 5.6 x 5.0 cm and demonstrates no hydronephrosis or stone disease. A 1.8 x 1.7 x 2.2 cm cyst is noted in the mid pole of the left kidney. IMPRESSION: 1. No evidence for hydronephrosis on either side. 2. Left mid pole renal cyst. 3. Gallbladder sludge. POS: BRIAN
[2017-08-24] MEDS: Pantoprazole 40 MG VIAL IVP SCH (20:21)
[2017-08-24] MEDS ORDERED: risperiDONE 0.25 MG TAB PO SCH (21:00)
[2017-08-24] MEDS: Metoclopramide HCl 10 MG/2 ML VIAL IVP SCH (21:36)
[2017-08-25] MEDS: Sodium Chloride 0.9% 1,000 ML IV SCH ×3 (01:10→19:32)
[2017-08-25 03:57] LABS: #Lymphocytes 0.6 thou/uL (1.20-3.40); #Monocytes 0.7 thou/uL (0.11-0.59); #Neutrophils 10.8 thou/uL (1.40-6.50); %Basophils 0.2 % (0.0-1.0); %Eosinophils 0.1 % (0.0-10.0); %Lymphocytes 5.2 % (21.0-51.0); %Monocytes 5.9 % (0.0-10.0); %Neutrophils 88.6 % (42.0-75.0); Hemoglobin 8.8 g/dL (14.0-18.0); Mean Corpuscular HGB CONC 33.7 g/dL (32.0-36.0); Mean Corpuscular Hemoglobin 31.3 pg (27.0-31.0); Mean Corpuscular Volume 92.9 fl (80.0-94.0); Mean Platelet Volume 8.2 fL (7.4-10.4); Platelet Count 309 thou/uL (130-400); RBC Distribution Width 12.6 % (11.5-14.5); White Blood Cell (WBC) Count 12.1 thou/uL (4.8-10.8)
[2017-08-25 04:02] LABS: INR-International Normal Ratio 2.1; Prothrombin Time 24.5 SEC (12.0-14.7)
[2017-08-25 04:18] LABS: Anion Gap 18 mmol/L (10-20); BUN (Urea Nitrogen) 71 mg/dL (8.4-25.7); Calc. Creatinine Clearance 71 mL/min (70-130); Calcium 8.5 mg/dL (7.8-10.44); Carbon Dioxide 18 mmol/L (22-29); Chloride 102 mmol/L (98-107); Estimated GFR-MDRD 46; Glucose 150 mg/dL (70-105); Potassium 3.7 mmol/L (3.5-5.1); Sodium 134 mmol/L (136-145)
[2017-08-25] MEDS: Diltiazem 125 MG in Sodium Chloride 0.9% 100 ML IVPB SCH (04:48)
[2017-08-25] MEDS: Metoclopramide HCl 10 MG/2 ML VIAL IVP SCH ×3 (04:59→21:02)
[2017-08-25] MEDS: Albumin 25% 25 GM/100 ML BOT IVPB SCH ×3 (05:00→17:30)
--- NOTE | 2017-08-25 07:46 | PDOC.PULCC ---
CCU Progress Note: Subj/Obj - Subjective Date: 08/25/17 Time: 07:45 Subjective: Intubated and sedated. Unable to follow commands or respond briskly at this time - Objective Allergies/Adverse Reactions: Allergies Allergy/AdvReac Type Severity Reaction Status Date / Time No Known Drug Allergies Allergy Verified 08/20/17 10:46 Medications: Current Medications Acetaminophen (Tylenol Elixir) 650 mg PO Q6H PRN PRN Reason: Fever > 101 or Mild Pain Last Admin: 08/23/17 05:04 Dose: 650 mg Hydrocodone Bitart/Acetaminophen ([place] 5/325) 2 tab PO Q4H PRN PRN Reason: Moderate to Severe Pain (6-10) Last Admin: 08/22/17 19:17 Dose: 2 tab Hydrocodone Bitart/Acetaminophen ([place] 5/325) 1 tab PO Q4H PRN PRN Reason: Moderate Pain (4-6) Albumin Human (Albumin 25%) 25 gm IVPB Q6HR DIAN Stop: 08/26/17 12:01 Last Admin: 08/25/17 05:00 Dose: 25 gm Albuterol Sulfate (Ventolin) 2.5 mg NEB Q2H PRN PRN Reason: Wheezing Albuterol/Ipratropium (Duoneb) 3 ml NEB [id number] DIAN Last Admin: 08/25/17 07:29 Dose: 3 ml Benzonatate (Tessalon) 100 mg PO Q4H PRN PRN Reason: Cough Last Admin: 08/23/17 00:11 Dose: 100 mg Bisacodyl (Dulcolax) 10 mg PO DAILYPRN PRN PRN Reason: Constipation Clonidine (Catapres) 0.1 mg PO Q4H PRN PRN Reason: Systolic BP > 170 Guaifenesin (Robitussin Sf) 200 mg PO Q4H PRN PRN Reason: Cough Last Admin: 08/22/17 18:07 Dose: 200 mg Hydralazine HCl (Apresoline) 10 mg SLOW IVP Q4H PRN PRN Reason: Systolic BP > 180 Levofloxacin 750 mg/ Device 150 mls @ 100 mls/hr IVPB 0600 DIAN Last Admin: 08/25/17 04:59 Dose: 150 mls Fentanyl Citrate 2,000 mcg/ (Sodium Chloride) 100 mls @ 0 mls/hr IV INF DIAN; Per Protocol PRN Reason: Protocol Stop: 09/22/17 03:32 Last Admin: 08/23/17 09:17 Dose: 100 mls Fentanyl Citrate (Fentanyl Bolus) 250 mls @ 0 mls/hr IVPB PRN PRN; As Directed PRN Reason: Breakthrough pain Stop: 09/22/17 03:32 Last Admin: 08/24/17 08:04 Dose: 2.5 mls Diltiazem HCl 125 mg/ Sodium (Chloride) 125 mls @ 0 mls/hr IVPB INF DIAN; Titrate PRN Reason: Protocol Last Admin: 08/25/17 04:48 Dose: 125 mls Cefepime HCl 2 gm/ Syringe 2.5 (ml/ Sterile Water) 12.5 mls @ 150 mls/hr SLOW IVP 1000,2200 DIAN Last Admin: 08/24/17 21:36 Dose: 12.5 mls Sodium Chloride (Normal Saline 0.9%) 1,000 mls @ 100 mls/hr IV .Q10H DIAN Last Admin: 08/25/17 04:48 Dose: 1,000 mls Midazolam HCl (Versed) 100 mls @ 0 mls/hr IVPB INF DIAN; Titrate PRN Reason: Protocol Last Admin: 08/25/17 03:04 Dose: 100 mls Loratadine (Claritin) 10 mg PO DAILYPRN PRN PRN Reason: Sinus Symptoms Lorazepam (Ativan) 1 mg PO Q4H PRN PRN Reason: Anxiety/Agitation Last Admin: 08/23/17 00:13 Dose: 1 mg Lorazepam (Ativan) 2 mg SLOW IVP Q2H PRN PRN Reason: Anxiety to achieve Pandey 2-3 Stop: 09/22/17 03:32 Last Admin: 08/24/17 07:10 Dose: 2 mg Methylprednisolone Sodium Succinate (Solu-Medrol) 40 mg IVP Q6HR DIAN Last Admin: 08/25/17 04:59 Dose: 40 mg Miscellaneous Medication (Sedation Protocol) 1 each FS ONE DIAN Stop: 09/22/17 03:31 Morphine Sulfate (Morphine) 2 mg SLOW IVP Q2H PRN PRN Reason: Breakthrough pain Stop: 09/22/17 03:32 Nitroglycerin (Nitrostat) 0.4 mg SL Q5MIN PRN PRN Reason: Chest Pain Discontinue Previous Narcotic Pain Medications And Benzodiazepines 1 each FS .ONE DIAN Stop: 09/22/17 03:32 Pantoprazole Sodium (Protonix) 40 mg IVP Q12HR DIAN Last Admin: 08/24/17 20:21 Dose: 40 mg Propofol (Diprivan) 1,000 mg IV INF PRN; Protocol PRN Reason: TO ACHIEVE PANDEY SCORE 2-3 Stop: 09/22/17 03:32 Last Admin: 08/24/17 11:11 Dose: 1,000 mg Rocuronium [place] (Zemuron) 70 mg IVP ONE PRN PRN Reason: Agitation Stop: 08/29/17 09:24 Sodium Chloride (Flush - Normal Saline) 10 ml IVF PRN PRN PRN Reason: Saline Flush Last Admin: 08/23/17 09:17 Dose: 10 ml MAR Reviewed: Yes Vital Signs and I&O: Vital Signs Temp 97.8 F 08/25/17 04:00 Pulse 60 08/25/17 07:31 Resp 16 08/25/17 07:29 BP 114/65 08/25/17 07:31 Pulse Ox 100 08/25/17 07:29 Intake & Output 08/24/17 08/25/17 08/25/17 18:59 06:59 18:59 Intake Total 1693.3 1752.3 Output Total 1265 925 Balance 428.3 827.3 Weight 207 lb 4.8 oz Intake: Intake, IV Amount 1693.3 1752.3 Albumin 25% 25 gm IVPB 200 200 Q6HR DIAN Rx#:[id number] Diltiazem 125 mg In 74.6 47 Sodium Chloride 0.9% 100 ml @ Titrate IVPB INF DIAN Rx#:[id number] Levofloxacin 750 mg/D5W 150 750 mg In Premix Bag 1 bag @ 100 mls/hr IVPB 0600 DIAN Rx#:[id number] Midazolam HCl 100 ml @ 49.8 57.3 Titrate IVPB INF PRN Rx#: [id number] Propofol 1000 mg (See 147.6 93 Protocol) IV INF PRN Rx#: [id number] Sodium Chloride 0.9% 1, 1200 1163 000 ml @ 100 mls/hr IV . Q10H DIAN Rx#:[id number] fentaNYL Citrate/PF 2,000 21.3 42 mcg In Sodium Chloride 0 .9% 60 ml @ Per Protocol IV INF DIAN Rx#:[id number] Oral 0 Output: Gastric Drainage 750 350 Output, [place] 515 575 Other: Voiding Method Self-Catheterization Indwelling Catheter Vent Setting: Bilevel 30/10, fiO2 60 Spontaneous Breathing Test: not done (on bilevel) CCU Progress Note: Exam - Physical Exam Constitutional: NAD -: sedated on vent HEENT: PERRLA, sclera anicteric Neck: no nodes, no JVD Cardiovascular: RRR, no significant murmur Respiratory: rales, rhonchi Deviation from normal: mildly distended with quiet bowel sounds Musculoskeletal: edema present Deviation from normal: unable to assess due to agitation Lymphatic: no nodes Deviation from normal: cannot assess Skin: no rash - Labs Result Diagrams: 08/25/17 03:34 08/25/17 03:35 Lab results: Laboratory Results - last 24 hr 08/24/17 08/24/17 08/24/17 07:50 14:42 18:07 WBC RBC Hgb Hct MCV MCH MCHC RDW Plt Count MPV Neutrophils % Lymphocytes % Monocytes % Eosinophils % Basophils % Neutrophils # Lymphocytes # Monocytes # Eosinophils # Basophils # PT INR Specimen Type ARTERIAL Puncture Site LBA Bicarbonate Actual 18.3 L ABG pH 7.35 ABG pCO2 34.2 L ABG pO2 53.0 L ABG O2 Sat Calc/Annabel 83.7 L* ABG O2 Content 31.1 H ABG Base Excess -6.7 L ABG Hematocrit 31.1 L ABG Hemoglobin 9.3 L ABG Carboxyhemoglobin 1.0 ABG Methemoglobin 0.7 Reyes Test NOT DONE A-a O2 Gradient 403.350 H Sodium 132 L Potassium 4.3 Chloride 96 L Ionized Calcium 1.1 L Mode of Support SIMV/PSV Mechanical Rate 16 Inspired O2 70 Tidal Volume 500 Pressure Support 10 PEEP or CPAP 7.0 Carbon Dioxide Anion Gap BUN Creatinine Estimated GFR (MDRD) Glucose POC Glucose 164 H Calcium Blood Type A POSITIVE Antibody Screen NEGATIVE 08/25/17 08/25/17 08/25/17 00:11 03:34 03:34 WBC 12.1 H RBC 2.80 L Hgb 8.8 L Hct 26.0 L MCV 92.9 MCH 31.3 H MCHC 33.7 RDW 12.6 Plt Count 309 MPV 8.2 Neutrophils % 88.6 H Lymphocytes % 5.2 L Monocytes % 5.9 Eosinophils % 0.1 Basophils % 0.2 Neutrophils # 10.8 H Lymphocytes # 0.6 L Monocytes # 0.7 H Eosinophils # 0.0 Basophils # 0.0 PT 24.5 H INR 2.1 Specimen Type Puncture Site Bicarbonate Actual ABG pH ABG pCO2 ABG pO2 ABG O2 Sat Calc/Annabel ABG O2 Content ABG Base Excess ABG Hematocrit ABG Hemoglobin ABG Carboxyhemoglobin ABG Methemoglobin Reyes Test A-a O2 Gradient Sodium Potassium Chloride Ionized Calcium Mode of Support Mechanical Rate Inspired O2 Tidal Volume Pressure Support PEEP or CPAP Carbon Dioxide Anion Gap BUN Creatinine Estimated GFR (MDRD) Glucose POC Glucose 152 H Calcium Blood Type Antibody Screen 08/25/17 08/25/17 03:35 05:41 WBC RBC Hgb Hct MCV MCH MCHC RDW Plt Count MPV Neutrophils % Lymphocytes % Monocytes % Eosinophils % Basophils % Neutrophils # Lymphocytes # Monocytes # Eosinophils # Basophils # PT INR Specimen Type Puncture Site Bicarbonate Actual ABG pH ABG pCO2 ABG pO2 ABG O2 Sat Calc/Annabel ABG O2 Content ABG Base Excess ABG Hematocrit ABG Hemoglobin ABG Carboxyhemoglobin ABG Methemoglobin Reyes Test A-a O2 Gradient Sodium 134 L Potassium 3.7 Chloride 102 Ionized Calcium Mode of Support Mechanical Rate Inspired O2 Tidal Volume Pressure Support PEEP or CPAP Carbon Dioxide 18 L Anion Gap 18 BUN 71 H Creatinine 1.57 H Estimated GFR (MDRD) 46 Glucose 150 H POC Glucose 153 H Calcium 8.5 Blood Type Antibody Screen CCU Progress Note: A/P - Problems (1) Acute respiratory failure with hypoxia Current Visit: Yes Status: Acute Code(s): J96.01 - ACUTE RESPIRATORY FAILURE WITH HYPOXIA (2) Bilateral pulmonary embolism Current Visit: Yes Status: Acute Code(s): I26.99 - OTHER PULMONARY EMBOLISM WITHOUT ACUTE COR PULMONALE (3) Pneumonia Current Visit: Yes Status: Acute Code(s): J18.9 - PNEUMONIA, UNSPECIFIED ORGANISM Qualifiers: Pneumonia type: aspiration pneumonia Aspiration pneumonia type: due to vomit Laterality: bilateral Lung location: lower lobe of lung Qualified Code(s): J69.0 - Pneumonitis due to inhalation of food and vomit - Time Spent with Patient Time: 30 min cc time - Plan Plan: Cut down his High pressure on Bilevel (VT running high). Oxygenation better Continue broad spectrum IV ABX Change digoxin to IV Continue steroids May need TPN if bowels don't start moving. Receiving some calories in the form of propofol. Continue to hold anticoagulation
[2017-08-25 07:49] LABS: Actual Bicarbonate (HCO3a) 18.9 mEq/L (22-26); CO2 Tension 26.3 mmHg (35.0-45.0); Hematocrit-ABG 27.6 % (42.0-52.0); Hemoglobin (Hb) 8.4 g/dL (14.0-18.0); O2 Tension (PaO2) 129.6 mmHg (80.0-100.0); pH, Arterial 7.47 (7.35-7.45)
[2017-08-25 07:50] LABS: Calcium, Ionized 1.1 mmol/L (1.12-1.30); Puncture Site L.R.
[2017-08-25 07:51] LABS: ALV-art Gradient 196.525 (0-20)
[2017-08-25 08:10] LABS: Bilirubin Negative (Negative); Blood, Urine Small (Negative); Clarity CLEAR (Clear); Glucose, Urine (Dipstick) Negative (Negative); Leukocyte Negative (Negative); Nitrite Negative (Negative); Protein, Urine (Dipstick) Negative (Neg-Trace); Specific Gravity, Urine 1.022 (1.002-1.036); Urobilinogen 0.2 mg/dL (0.2-1.0)
[2017-08-25 08:12] LABS: Bacteria/HPF None Seen HPF (None Seen); Pathc Cast-AUWi Flag 2.43 (0-2.49); Squamous Epithelial 0-3 HPF (0-3); WBC/HPF 0-3 HPF (0-3)
--- NOTE | 2017-08-25 08:23 | RAD ---
CHEST 1 VIEW: Date: 08/25/17 HISTORY: Dyspnea. Follow-up. COMPARISON: 08/24/17. FINDINGS: Cardiac silhouette is magnified and enlarged. Pulmonary vasculature remains engorged. Patchy air spac e disease throughout each lung remains, but has improved slightly. Left pleural fluid is less than on the previous exam. Patient is rotated leftward. Lines and tubes appear unchanged in position. Cardia c monitor leads overlie the chest. IMPRESSION: Slight interval improved aeration of the lungs with interval decrease in left pleural fluid. POS: WALE
[2017-08-25 09:00] LABS: Renal Epithelial None Seen HPF (0-3); Transitional Epithelial 0-3 HPF (0-3)
[2017-08-25 09:01] LABS: Crystals/HPF 1+ URIC ACID HPF (Negative)
[2017-08-25 09:18] LABS: Creatinine, Urine 74.08 mg/dL (63-166); Sodium, Urine Less than 20 mmol/L (Not Available)
--- NOTE | 2017-08-25 09:23 | PRG ---
DATE OF SERVICE: 08/25/2017 Mr. Marie is intubated on the ventilator. He is also sedated. Blood pressure 102/56, pulse 64 irregular, atrial fibrillation on the monitor. REVIEW OF SYSTEMS: Not obtainable, he is on the ventilator. PHYSICAL EXAMINATION: LUNGS: Lungs are clear. CARDIAC: Irregular, irregular. ABDOMEN: Soft, nontender. EXTREMITIES: No edema. ASSESSMENT: 1. Atrial fibrillation, paroxysmal, now rate is relatively low. 2. Pneumonia. 3. Recent pulmonary embolism. 4. Anemia. 5. Renal failure stage 3. Estimated GFR is 46. PLAN: 1. Reduce diltiazem, keep heart rate approximately in the 80s. 2. He is on antibiotics. 3. Respiratory support.
[2017-08-25] MEDS: Pantoprazole 40 MG VIAL IVP SCH ×2 (09:42→20:54)
[2017-08-25] MEDS: Digoxin 0.5 MG/2 ML AMP SLOW IVP SCH (09:43)
[2017-08-25] MEDS: Cefepime 2 GM, Syringe 2.5 ML in Sterile Water 10 ML SLOW IVP SCH ×2 (11:19→21:01)
[2017-08-25] MEDS: fentaNYL Citrate/PF 2,000 MCG in Sodium Chloride 0.9% 60 ML IV SCH (12:10)
--- NOTE | 2017-08-25 12:47 | PDOC.PN ---
- Subjective Encounter Start Date: 08/25/17 Encounter Start Time: 11:30 Patient Is intubated and Sedated. - Objective MAR Reviewed: Yes Vital Signs & Weight: Vital Signs (12 hours) Temp Pulse Resp BP Pulse Ox 08/25/17 10:41 56 L 101/63 08/25/17 10:00 16 08/25/17 09:43 55 L 08/25/17 08:00 97.7 F 60 21 H 98 08/25/17 07:31 60 114/65 08/25/17 07:29 58 L 16 100 08/25/17 07:00 97.7 F 08/25/17 06:00 16 08/25/17 04:00 97.8 F 08/25/17 03:47 67 114/61 08/25/17 03:45 16 08/25/17 02:00 16 08/25/17 01:55 58 L Weight Admit Weight 201 lb Weight 207 lb 4.8 oz Most Recent Monitor Data Heart Rate from ECG 58 NIBP 112/58 NIBP BP-Mean 64 Respiration from ECG 16 SpO2 98 I&O: 08/24/17 08/25/17 08/26/17 06:59 06:59 06:59 Intake Total 5951.7 3445.6 Output Total 455 2190 545 Balance 5496.7 1255.6 -545 Result Diagrams: 08/25/17 03:34 08/25/17 03:35 Additional Labs: Accuchecks 08/25/17 08/25/17 08/24/17 05:41 00:11 18:07 POC Glucose 153 H 152 H 164 H Radiology Reviewed by me: Yes (Some improveemnt seen on left pleural effusion) Phys Exam - Physical Examination HEENT: PERRLA, moist MMs Neck: no nodes, no JVD Respiratory: no wheezing, no rales, clear to auscultation bilateral Cardiovascular: RRR, no significant murmur Gastrointestinal: soft, non-tender Musculoskeletal: no edema, pulses present Dx/Plan (1) Warfarin-induced coagulopathy Code(s): D68.9 - COAGULATION DEFECT, UNSPECIFIED; T45.515A - ADVERSE EFFECT OF ANTICOAGULANTS, INITIAL ENCOUNTER Status: Acute Comment: Inr did not improve much, it is 2.1 today. (2) Acute respiratory failure with hypoxia Code(s): J96.01 - ACUTE RESPIRATORY FAILURE WITH HYPOXIA Status: Acute Comment: Pulmonary managing, Pt on Bilevel support. (3) Bilateral pulmonary embolism Code(s): I26.99 - OTHER PULMONARY EMBOLISM WITHOUT ACUTE COR PULMONALE Status : Acute Comment: INR improved continue to hold anticoagulation per pulmoanry (4) Pneumonia Code(s): J18.9 - PNEUMONIA, UNSPECIFIED ORGANISM Status: Acute Qualifiers: Pneumonia type: aspiration pneumonia Aspiration pneumonia type: due to vomit Laterality: bilateral Lung location: lower lobe of lung Qualified Code(s): J69.0 - Pneumonitis due to inhalation of food and vomit Comment: Pt had aspiration following vomiitng, suction as needed.Pt is on IV antibitoics , improved aeration left lung. continue same (5) Atrial fibrillation with RVR Code(s): I48.91 - UNSPECIFIED ATRIAL FIBRILLATION Status: Acute Comment: [place] Rate controlled. (6) Hypertension Code(s): I10 - ESSENTIAL (PRIMARY) HYPERTENSION Status: Acute (7) Pleural effusion, left Code(s): J90 - PLEURAL EFFUSION, NOT ELSEWHERE CLASSIFIED Status: Acute Comment: Improving, following pulmonary recomedation, will repeat chest xray daily - Plan cont current plan of care, mancini catheter, continue antibiotics, respiratory therapy, DVT proph w/SCDs * . - Discharge Day Encounter end time: 12:00 (30 Min of Crirtical care time) Review of Systems - Review of Systems Other: Unable to obstain ROS - Medications/Allergies Allergies/Adverse Reactions: Allergies Allergy/AdvReac Type Severity Reaction Status Date / Time No Known Drug Allergies Allergy Verified 08/20/17 10:46 Medications: Current Medications Acetaminophen (Tylenol Elixir) 650 mg PO Q6H PRN PRN Reason: Fever > 101 or Mild Pain Last Admin: 08/23/17 05:04 Dose: 650 mg Hydrocodone Bitart/Acetaminophen ([place] 5/325) 2 tab PO Q4H PRN PRN Reason: Moderate to Severe Pain (6-10) Last Admin: 08/22/17 19:17 Dose: 2 tab Hydrocodone Bitart/Acetaminophen ([place] 5/325) 1 tab PO Q4H PRN PRN Reason: Moderate Pain (4-6) Albumin Human (Albumin 25%) 25 gm IVPB Q6HR DIAN Stop: 08/26/17 12:01 Last Admin: 08/25/17 12:26 Dose: 25 gm Albuterol Sulfate (Ventolin) 2.5 mg NEB Q2H PRN PRN Reason: Wheezing Albuterol/Ipratropium (Duoneb) 3 ml NEB [id number] DIAN Last Admin: 08/25/17 07:29 Dose: 3 ml Benzonatate (Tessalon) 100 mg PO Q4H PRN PRN Reason: Cough Last Admin: 08/23/17 00:11 Dose: 100 mg Bisacodyl (Dulcolax) 10 mg PO DAILYPRN PRN PRN Reason: Constipation Clonidine (Catapres) 0.1 mg PO Q4H PRN PRN Reason: Systolic BP > 170 Digoxin (Lanoxin) 0.125 mg SLOW IVP DAILY [facility] Last Admin: 08/25/17 09:43 Dose: Not Given Guaifenesin (Robitussin Sf) 200 mg PO Q4H PRN PRN Reason: Cough Last Admin: 08/22/17 18:07 Dose: 200 mg Hydralazine HCl (Apresoline) 10 mg SLOW IVP Q4H PRN PRN Reason: Systolic BP > 180 Levofloxacin 750 mg/ Device 150 mls @ 100 mls/hr IVPB 0600 DIAN Last Admin: 08/25/17 04:59 Dose: 150 mls Fentanyl Citrate 2,000 mcg/ (Sodium Chloride) 100 mls @ 0 mls/hr IV INF DIAN; Per Protocol PRN Reason: Protocol Stop: 09/22/17 03:32 Last Admin: 08/25/17 12:10 Dose: 100 mls Fentanyl Citrate (Fentanyl Bolus) 250 mls @ 0 mls/hr IVPB PRN PRN; As Directed PRN Reason: Breakthrough pain Stop: 09/22/17 03:32 Last Admin: 08/25/17 08:47 Dose: 2.5 mls Diltiazem HCl 125 mg/ Sodium (Chloride) 125 mls @ 0 mls/hr IVPB INF DIAN; Titrate PRN Reason: Protocol Last Admin: 08/25/17 04:48 Dose: 125 mls Cefepime HCl 2 gm/ Syringe 2.5 (ml/ Sterile Water) 12.5 mls @ 150 mls/hr SLOW IVP 1000,2200 DIAN Last Admin: 08/25/17 11:19 Dose: 12.5 mls Sodium Chloride (Normal Saline 0.9%) 1,000 mls @ 100 mls/hr IV .Q10H [facility] Last Admin: 08/25/17 04:48 Dose: 1,000 mls Midazolam HCl (Versed) 100 mls @ 0 mls/hr IVPB INF DIAN; Titrate PRN Reason: Protocol Last Admin: 08/25/17 03:04 Dose: 100 mls Loratadine (Claritin) 10 mg PO DAILYPRN PRN PRN Reason: Sinus Symptoms Lorazepam (Ativan) 1 mg PO Q4H PRN PRN Reason: Anxiety/Agitation Last Admin: 08/23/17 00:13 Dose: 1 mg Lorazepam (Ativan) 2 mg SLOW IVP Q2H PRN PRN Reason: Anxiety to achieve Pandey 2-3 Stop: 09/22/17 03:32 Last Admin: 08/24/17 07:10 Dose: 2 mg Methylprednisolone Sodium Succinate (Solu-Medrol) 40 mg IVP Q6HR [facility] Last Admin: 08/25/17 12:26 Dose: 40 mg Metoclopramide HCl (Reglan) 20 mg IVP Q8HR [facility] Miscellaneous Medication (Sedation Protocol) 1 each FS ONE [facility] Stop: 09/22/17 03:31 Morphine Sulfate (Morphine) 2 mg SLOW IVP Q2H PRN PRN Reason: Breakthrough pain Stop: 09/22/17 03:32 Nitroglycerin (Nitrostat) 0.4 mg SL Q5MIN PRN PRN Reason: Chest Pain Discontinue Previous Narcotic Pain Medications And Benzodiazepines 1 each FS .ONE [facility] Stop: 09/22/17 03:32 Pantoprazole Sodium (Protonix) 40 mg IVP Q12HR [facility] Last Admin: 08/25/17 09:42 Dose: 40 mg Propofol (Diprivan) 1,000 mg IV INF PRN; Protocol PRN Reason: TO ACHIEVE PANDEY SCORE 2-3 Stop: 09/22/17 03:32 Last Admin: 08/24/17 11:11 Dose: 1,000 mg Rocuronium [place] (Zemuron) 70 mg IVP ONE PRN PRN Reason: Agitation Stop: 08/29/17 09:24 Sodium Chloride (Flush - Normal Saline) 10 ml IVF PRN PRN PRN Reason: Saline Flush Last Admin: 08/25/17 09:42 Dose: 10 ml
--- NOTE | 2017-08-25 16:55 | CON ---
DATE OF CONSULTATION: 08/25/2017 HISTORY OF PRESENT ILLNESS: Mr. Marie is a 58-year-old white male, patient of [facility] nd admitted for a complaint of chest pain. He was noted to have bad pneumonia, pulmonary embolism as well as rapid AFib. During this hospitalization, he was anticoagulated. He was also seen by Cardio logy for his rapid AFib. He was started on Cardizem drip. However, during this hospitalization, the patient went into acute respiratory failure. He was subsequently intubated and placed on ventilator support. The feeling is that he may be aspirating. He is also being empirically treated with IV antibiotics. We are now being consulted for his acute k idney injury. His creatinine was noted to have gone to 1.57 on 08/25/2017. Back on 08/24/2017, the creatinine was 1.89 and prior to that, creatinine was 1.16. REVIEW OF SYSTEMS: Not obtainable since the patient is intubated and on ventilator support. MEDICATIONS: [place] 5/325 q.4 hours as needed, albumin 25 grams IV q.6 hours, Ventolin neb treatment q.2 hours as needed, cefepime 2.2 grams IV q. day, digoxin 0.125 mg IV q. day, diltiazem drip, fentan yl citrate, hydralazine 10 mg IV q.4 hour p.r.n., Levaquin 750 mg IV q. day, Ativan 1 mg q.4 hours p. r.n., Solu-Medrol 40 mg IV q.6 hours, Protonix 40 mg IV q.12 hours and normal saline 100 mL per hour. PAST MEDICAL HISTORY: The patient has a history of; 1. Hypertension. 2. Dyslipidemia. 3. Atrial fibrillation. PAST SURGICAL HISTORY: None - recently status post intubation. SOCIAL HISTORY: The patient is currently being seen in the [facility]. Currently, smoking roughl y 1 pack per day. Alcohol rarely. No IV drug abuse. FAMILY HISTORY: No family history of ESRD. ALLERGIES: None. TRAUMA: None. IMMUNIZATIONS: Up to date. HOSPITALIZATIONS: Please see past medical history. PHYSICAL EXAMINATION: VITAL SIGNS: Blood pressure 116/45, respiratory rate is 14, heart rate is 74 and pulse ox 98%. GENERAL: The patient is sedated and intubated on ventilator support. SKIN: Adequate turgor. HEENT: Slightly pale conjunctivae, anicteric sclerae. NECK: No neck mass, no carotid bruits, no JVD. CHEST: No deformities. LUNGS: Decreased breath sounds. HEART: Irregular. No murmur, no gallops. ABDOMEN: Globular, soft and nontender. No masses. EXTREMITIES: No edema. NEUROLOGIC: Sedated and intubated on ventilator support. LABORATORY DATA: Laboratories of 08/25/2017. White count 12.1 and hemoglobin 8.8. Sodium 127, pota ssium 4.2, chloride 95, carbon dioxide 22. On 08/23/2017, BUN 20, creatinine 1.16. On 08/25/2017, sodium 134, potassium 3.7, chloride 102, carbon dioxide 18, BUN 71, creatinine 1.57, g lucose 150 and calcium 8.5. Urinalysis of 08/25/2017. No pigmented granular casts. Specific gravity 1.022. Urine creatinine is 74. Urine sodium is less than 20. ASSESSMENT AND PLAN: 1. Acute respiratory failure. Patient is intubated and currently on empiric IV antibiotics. Thorac entesis was also being done with this patient. He is on ventilator support. Pulmonary is following. Concern is aspiration pneumonia. 2. Acute kidney injury - This is most likely hemodynamically mediated renal dysfunction. Please not e, the urine sodium is on the low side and the fraction excretion of sodium is less than 1%. In danielito tion, the urinalysis does not suggest any underlying acute tubular necrosis. In addition, the urine did not show any significant red blood cells or proteinuria to suggest any underlying vasculitis. Ma nagement is supportive. Continue IV hydration. Continue normal saline and salt poor albumin. There is no indication for any dialytic intervention with this patient. Overall, prognosis remains guarde d.
[2017-08-26] MEDS: Albumin 25% 25 GM/100 ML BOT IVPB SCH ×2 (00:50→05:26)
[2017-08-26 05:09] LABS: INR-International Normal Ratio 1.5; Prothrombin Time 18.4 SEC (12.0-14.7)
[2017-08-26 05:13] LABS: #Lymphocytes 0.9 thou/uL (1.20-3.40); #Monocytes 0.9 thou/uL (0.11-0.59); %Eosinophils 0.2 % (0.0-10.0); %Lymphocytes 6.3 % (21.0-51.0); %Monocytes 5.9 % (0.0-10.0); %Neutrophils 87.6 % (42.0-75.0); Hemoglobin 8.8 g/dL (14.0-18.0); Mean Corpuscular HGB CONC 34.9 g/dL (32.0-36.0); Mean Corpuscular Hemoglobin 32.5 pg (27.0-31.0); Mean Corpuscular Volume 92.9 fl (80.0-94.0); Mean Platelet Volume 8.6 fL (7.4-10.4); Platelet Count 337 thou/uL (130-400); RBC Distribution Width 12.9 % (11.5-14.5); Red Blood Cell (RBC) Count 2.72 mill/uL (4.70-6.10); White Blood Cell (WBC) Count 14.9 thou/uL (4.8-10.8)
[2017-08-26 05:15] LABS: Anion Gap 17 mmol/L (10-20); BUN (Urea Nitrogen) 89 mg/dL (8.4-25.7); Calc. Creatinine Clearance 71 mL/min (70-130); Calcium 8.9 mg/dL (7.8-10.44); Carbon Dioxide 19 mmol/L (22-29); Chloride 105 mmol/L (98-107); Estimated GFR-MDRD 46; Glucose 146 mg/dL (70-105); Potassium 4.2 mmol/L (3.5-5.1); Sodium 137 mmol/L (136-145)
[2017-08-26] MEDS: Metoclopramide HCl 10 MG/2 ML VIAL IVP SCH ×3 (05:26→21:33)
[2017-08-26] MEDS: Propofol 1,000 MG/100 ML VIAL IV PRN ×4 (05:44→22:58)
[2017-08-26] MEDS: Sodium Chloride 0.9% 1,000 ML IV SCH ×3 (07:29→19:49)
--- NOTE | 2017-08-26 08:09 | PDOC.PULCC ---
CCU Progress Note: Subj/Obj - Subjective Date: 08/26/17 Time: 08:08 Subjective: Intubated and sedated - Objective Allergies/Adverse Reactions: Allergies Allergy/AdvReac Type Severity Reaction Status Date / Time No Known Drug Allergies Allergy Verified 08/20/17 10:46 Medications: Current Medications Acetaminophen (Tylenol Elixir) 650 mg PO Q6H PRN PRN Reason: Fever > 101 or Mild Pain Last Admin: 08/23/17 05:04 Dose: 650 mg Hydrocodone Bitart/Acetaminophen ([place] 5/325) 2 tab PO Q4H PRN PRN Reason: Moderate to Severe Pain (6-10) Last Admin: 08/22/17 19:17 Dose: 2 tab Hydrocodone Bitart/Acetaminophen ([place] 5/325) 1 tab PO Q4H PRN PRN Reason: Moderate Pain (4-6) Albumin Human (Albumin 25%) 25 gm IVPB Q6HR [facility] Stop: 08/26/17 12:01 Last Admin: 08/26/17 05:26 Dose: 25 gm Albuterol Sulfate (Ventolin) 2.5 mg NEB Q2H PRN PRN Reason: Wheezing Albuterol/Ipratropium (Duoneb) 3 ml NEB [id number] [facility] Last Admin: 08/26/17 07:22 Dose: 3 ml Benzonatate (Tessalon) 100 mg PO Q4H PRN PRN Reason: Cough Last Admin: 08/23/17 00:11 Dose: 100 mg Bisacodyl (Dulcolax) 10 mg PO DAILYPRN PRN PRN Reason: Constipation Clonidine (Catapres) 0.1 mg PO Q4H PRN PRN Reason: Systolic BP > 170 Digoxin (Lanoxin) 0.125 mg SLOW IVP DAILY [facility] Last Admin: 08/25/17 09:43 Dose: Not Given Guaifenesin (Robitussin Sf) 200 mg PO Q4H PRN PRN Reason: Cough Last Admin: 08/22/17 18:07 Dose: 200 mg Hydralazine HCl (Apresoline) 10 mg SLOW IVP Q4H PRN PRN Reason: Systolic BP > 180 Levofloxacin 750 mg/ Device 150 mls @ 100 mls/hr IVPB 0600 [facility] Last Admin: 08/26/17 05:25 Dose: 150 mls Fentanyl Citrate 2,000 mcg/ (Sodium Chloride) 100 mls @ 0 mls/hr IV INF DIAN; Per Protocol PRN Reason: Protocol Stop: 09/22/17 03:32 Last Admin: 08/25/17 12:10 Dose: 100 mls Fentanyl Citrate (Fentanyl Bolus) 250 mls @ 0 mls/hr IVPB PRN PRN; As Directed PRN Reason: Breakthrough pain Stop: 09/22/17 03:32 Last Admin: 08/25/17 08:47 Dose: 2.5 mls Diltiazem HCl 125 mg/ Sodium (Chloride) 125 mls @ 0 mls/hr IVPB INF DIAN; Titrate PRN Reason: Protocol Last Admin: 08/25/17 04:48 Dose: 125 mls Cefepime HCl 2 gm/ Syringe 2.5 (ml/ Sterile Water) 12.5 mls @ 150 mls/hr SLOW IVP 1000,2200 DIAN Last Admin: 08/25/17 21:01 Dose: 12.5 mls Sodium Chloride (Normal Saline 0.9%) 1,000 mls @ 100 mls/hr IV .Q10H DIAN Last Admin: 08/26/17 07:29 Dose: Not Given Midazolam HCl (Versed) 100 mls @ 0 mls/hr IVPB INF DIAN; Titrate PRN Reason: Protocol Last Admin: 08/25/17 21:38 Dose: 100 mls Loratadine (Claritin) 10 mg PO DAILYPRN PRN PRN Reason: Sinus Symptoms Lorazepam (Ativan) 1 mg PO Q4H PRN PRN Reason: Anxiety/Agitation Last Admin: 08/23/17 00:13 Dose: 1 mg Lorazepam (Ativan) 2 mg SLOW IVP Q2H PRN PRN Reason: Anxiety to achieve Pandey 2-3 Stop: 09/22/17 03:32 Last Admin: 08/24/17 07:10 Dose: 2 mg Methylprednisolone Sodium Succinate (Solu-Medrol) 40 mg IVP Q6HR DIAN Last Admin: 08/26/17 05:26 Dose: 40 mg Metoclopramide HCl (Reglan) 20 mg IVP Q8HR DIAN Last Admin: 08/26/17 05:26 Dose: 20 mg Miscellaneous Medication (Sedation Protocol) 1 each FS ONE DIAN Stop: 09/22/17 03:31 Morphine Sulfate (Morphine) 2 mg SLOW IVP Q2H PRN PRN Reason: Breakthrough pain Stop: 09/22/17 03:32 Nitroglycerin (Nitrostat) 0.4 mg SL Q5MIN PRN PRN Reason: Chest Pain Discontinue Previous Narcotic Pain Medications And Benzodiazepines 1 each FS .ONE DIAN Stop: 09/22/17 03:32 Pantoprazole Sodium (Protonix) 40 mg IVP Q12HR [facility] Last Admin: 08/25/17 20:54 Dose: 40 mg Propofol (Diprivan) 1,000 mg IV INF PRN; Protocol PRN Reason: TO ACHIEVE PANDEY SCORE 2-3 Stop: 09/22/17 03:32 Last Admin: 08/26/17 05:44 Dose: 1,000 mg Rocuronium [place] (Zemuron) 70 mg IVP ONE PRN PRN Reason: Agitation Stop: 08/29/17 09:24 Sodium Chloride (Flush - Normal Saline) 10 ml IVF PRN PRN PRN Reason: Saline Flush Last Admin: 08/25/17 09:42 Dose: 10 ml MAR Reviewed: Yes Vital Signs and I&O: Vital Signs Temp 97.9 F 08/26/17 04:00 Pulse 78 08/26/17 07:23 Resp 21 H 08/26/17 07:22 BP 112/63 08/26/17 07:23 Pulse Ox 99 08/26/17 00:45 Intake & Output 08/25/17 08/26/17 08/26/17 18:59 06:59 18:59 Intake Total 1640.2 2516.7 Output Total 850 645 Balance 790.2 1871.7 Weight 207 lb 4.8 oz Intake: Intake, IV Amount 1640.2 2516.7 Albumin 25% 25 gm IVPB 200 200 Q6HR DIAN Rx#:[id number] Levofloxacin 750 mg/D5W 150 750 mg In Premix Bag 1 bag @ 100 mls/hr IVPB 0600 DIAN Rx#:[id number] Midazolam HCl 100 ml @ 65.4 59.4 Titrate IVPB INF PRN Rx#: [id number] Propofol 1000 mg (See 118 202 Protocol) IV INF PRN Rx#: [id number] Sodium Chloride 0.9% 1, 1221 1874 000 ml @ 100 mls/hr IV . Q10H DIAN Rx#:[id number] fentaNYL Citrate/PF 2,000 35.8 31.3 mcg In Sodium Chloride 0 .9% 60 ml @ Per Protocol IV INF DIAN Rx#:[id number] Oral 0 Output: Gastric Drainage 350 0 Output, [place] 500 645 Other: Voiding Method Indwelling Catheter Indwelling Catheter Vent Setting: Was on Bilevel 01/06 50% Spontaneous Breathing Test: not done CCU Progress Note: Exam - Physical Exam Constitutional: NAD HEENT: PERRLA, sclera anicteric Neck: no nodes, no JVD Cardiovascular: RRR Focused Respiratory Location: rales: Right, Left Deviation from normal: AB.40/33/77 Gastrointestinal: soft, non-tender Deviation from normal: has had problems with high residuals Neurological: non-focal, moves all 4 limbs Lymphatic: no nodes Skin: no rash - Labs Result Diagrams: 08/26/17 04:10 08/26/17 04:10 Lab results: Laboratory Results - last 24 hr 08/22/17 08/25/17 08/25/17 16:45 07:45 07:45 WBC RBC Hgb Hct MCV MCH MCHC RDW Plt Count MPV Neutrophils % Lymphocytes % Monocytes % Eosinophils % Basophils % Neutrophils # Lymphocytes # Monocytes # Eosinophils # Basophils # PT INR Sodium Potassium Chloride Carbon Dioxide Anion Gap BUN Creatinine Estimated GFR (MDRD) Glucose POC Glucose Calcium Urine Color YELLOW Urine Clarity CLEAR Urine pH 6.0 Ur Specific [place] 1.022 Urine Protein Negative Urine Glucose (UA) Negative Urine Ketones Negative Urine Blood Small H Urine Nitrite Negative Urine Bilirubin Negative Urine Urobilinogen 0.2 Ur Leukocyte Esterase Negative Urine RBC 4-6 Urine WBC 0-3 Ur Squamous Epith Cells 0-3 Ur Transition Epith Cell 0-3 Ur Renal Epithelial Cell None Seen Urine Crystals 1+ URIC ACID Urine Bacteria None Seen Hyaline Casts 11-20 HYALINE CASTS H Urine Creatinine 74.08 Urine Sodium Less than 20 Fluid Diff Path Review 08/25/17 08/25/17 08/26/17 13:03 17:07 00:11 WBC RBC Hgb Hct MCV MCH MCHC RDW Plt Count MPV Neutrophils % Lymphocytes % Monocytes % Eosinophils % Basophils % Neutrophils # Lymphocytes # Monocytes # Eosinophils # Basophils # PT INR Sodium Potassium Chloride Carbon Dioxide Anion Gap BUN Creatinine Estimated GFR (MDRD) Glucose POC Glucose 144 H 162 H 139 H Calcium Urine Color Urine Clarity Urine pH Ur Specific [place] Urine Protein Urine Glucose (UA) Urine Ketones Urine Blood Urine Nitrite Urine Bilirubin Urine Urobilinogen Ur Leukocyte Esterase Urine RBC Urine WBC Ur Squamous Epith Cells Ur Transition Epith Cell Ur Renal Epithelial Cell Urine Crystals Urine Bacteria Hyaline Casts Urine Creatinine Urine Sodium Fluid Diff Path Review 08/26/17 08/26/17 08/26/17 04:10 04:10 04:10 WBC 14.9 H RBC 2.72 L Hgb 8.8 L Hct 25.2 L MCV 92.9 MCH 32.5 H MCHC 34.9 RDW 12.9 Plt Count 337 MPV 8.6 Neutrophils % 87.6 H Lymphocytes % 6.3 L Monocytes % 5.9 Eosinophils % 0.2 Basophils % 0.0 Neutrophils # 13.0 H Lymphocytes # 0.9 L Monocytes # 0.9 H Eosinophils # 0.0 Basophils # 0.0 PT 18.4 H INR 1.5 Sodium 137 Potassium 4.2 Chloride 105 Carbon Dioxide 19 L Anion Gap 17 BUN 89 H Creatinine 1.57 H Estimated GFR (MDRD) 46 Glucose 146 H POC Glucose Calcium 8.9 Urine Color Urine Clarity Urine pH Ur Specific [place] Urine Protein Urine Glucose (UA) Urine Ketones Urine Blood Urine Nitrite Urine Bilirubin Urine Urobilinogen Ur Leukocyte Esterase Urine RBC Urine WBC Ur Squamous Epith Cells Ur Transition Epith Cell Ur Renal Epithelial Cell Urine Crystals Urine Bacteria Hyaline Casts Urine Creatinine Urine Sodium Fluid Diff Path Review CCU Progress Note: A/P - Problems (1) Acute respiratory failure with hypoxia Current Visit: Yes Status: Acute Code(s): J96.01 - ACUTE RESPIRATORY FAILURE WITH HYPOXIA (2) Bilateral pulmonary embolism Current Visit: Yes Status: Acute Code(s): I26.99 - OTHER PULMONARY EMBOLISM WITHOUT ACUTE COR PULMONALE (3) Pneumonia Current Visit: Yes Status: Acute Code(s): J18.9 - PNEUMONIA, UNSPECIFIED ORGANISM Qualifiers: Pneumonia type: aspiration pneumonia Aspiration pneumonia type: due to vomit Laterality: bilateral Lung location: lower lobe of lung Qualified Code(s): J69.0 - Pneumonitis due to inhalation of food and vomit - Time Spent with Patient Time: 35 min cc time - Plan Plan: I have switched him to straight PC ventilation. Oxygenation is greatly improved. CXR is about the same We will try to initiate TF continue ABX
--- NOTE | 2017-08-26 09:21 | RAD ---
CHEST ONE VIEW: History: Dyspnea. Follow up. Comparison: 08-25-17 FINDINGS: Cardiac silhouette is magnified by projection. Pulmonary vasculature remains engorged with wide sprea d interstitial infiltrates, left greater than right, similar in appearance to the prior study. Medias tinum is midline. Lines and tubes are unchanged in position. 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 IMPRESSION: Pulmonary vascular congestion and other findings are stable. POS: BRIAN
[2017-08-26] MEDS: Pantoprazole 40 MG VIAL IVP SCH ×2 (09:41→21:34)
[2017-08-26] MEDS: Digoxin 0.5 MG/2 ML AMP SLOW IVP SCH (09:41)
[2017-08-26] MEDS: Cefepime 2 GM, Syringe 2.5 ML in Sterile Water 10 ML SLOW IVP SCH ×2 (09:41→21:33)
--- NOTE | 2017-08-26 12:10 | PRG ---
DATE OF SERVICE: 08/26/2017 Mr. Marie is intubated and sedated. PHYSICAL EXAMINATION: VITAL SIGNS: Blood pressure 130/68, pulse 70, it is irregular. LUNGS: Clear. CARDIAC: Irregularly. ABDOMEN: Soft, nontender. EXTREMITIES: No edema. Stop the intravenous diltiazem. ASSESSMENT: 1. Respiratory failure. 2. Paroxysmal atrial fibrillation. 3. Pneumonia. 4. Pulmonary emboli. PLAN: 1. He is off of the Cardizem. 2. Check digoxin level tomorrow. No other recommendations at the present time.
--- NOTE | 2017-08-26 12:26 | PDOC.PN ---
- Subjective Encounter Start Date: 08/26/17 Encounter Start Time: 12:25 Subjective: remains intubated.sedated -: no new overnight events. agitated when sedation reduced - Objective MAR Reviewed: Yes Vital Signs & Weight: Vital Signs (12 hours) Temp Pulse Resp BP Pulse Ox 08/26/17 11:17 82 115/67 08/26/17 10:00 23 H 08/26/17 09:41 78 08/26/17 08:00 97.9 F 78 20 08/26/17 07:23 78 112/63 08/26/17 07:22 75 21 H 08/26/17 06:00 18 08/26/17 04:00 97.9 F 16 08/26/17 02:24 78 128/59 L 08/26/17 02:00 16 08/26/17 00:46 71 08/26/17 00:45 99 Weight Admit Weight 201 lb Weight 207 lb 4.8 oz Most Recent Monitor Data Heart Rate from ECG 73 NIBP 112/72 NIBP BP-Mean 88 Respiration from ECG 11 SpO2 91 I&O: 08/25/17 08/26/17 08/27/17 06:59 06:59 06:59 Intake Total 3445.6 4156.9 Output Total 2190 1495 360 Balance 1255.6 2661.9 -360 Result Diagrams: 08/26/17 04:10 08/26/17 04:10 Additional Labs: Accuchecks 08/26/17 08/25/17 08/25/17 00:11 17:07 13:03 POC Glucose 139 H 162 H 144 H Microbiology 08/23/17 04:50 Nasopharynx - Nares Influenza Types A,B Direct EIA - Final 08/20/17 05:29 Venous blood - Left Hand Blood Culture - Final NO GROWTH IN 5 DAYS 08/20/17 05:00 Venous blood - Left Arm Blood Culture - Final NO GROWTH IN 5 DAYS 08/24/17 09:15 Bronchial Washing Respiratory Culture - Preliminary 08/24/17 09:15 Bronchial Washing Respiratory Culture - Preliminary 08/23/17 04:48 Venous blood - Right Hand Blood Culture - Preliminary NO GROWTH AT 48 HOURS 08/23/17 04:48 Venous blood - Left Hand Blood Culture - Preliminary NO GROWTH AT 48 HOURS 08/22/17 16:45 Pleural fluid Body Fluid Culture - Preliminary 08/22/17 16:45 Pleural fluid Body Fluid Culture - Preliminary 08/22/17 16:45 Pleural fluid Acid Fast Bacilli Smear - Preliminary Laboratory Tests 08/20/17 08/22/17 08/22/17 10:55 05:13 16:33 Creatinine 0.80 0.82 Fluid WBC Fluid RBC (Manual) Fluid Seg Neutrophil % Pleural pH 7.286 Pleural Total Protein Pleural LDH Pleural Glucose Pleural Amylase 08/22/17 08/22/17 08/22/17 16:45 16:45 21:02 Creatinine 0.85 Fluid WBC 2460 Fluid RBC (Manual) 4925 Fluid Seg Neutrophil % 75 Pleural pH Pleural Total Protein 4.7 Pleural LDH 608 Pleural Glucose 64 Pleural Amylase 58 08/23/17 08/23/17 08/24/17 04:52 13:17 03:24 Creatinine 0.92 1.16 1.89 H Fluid WBC Fluid RBC (Manual) Fluid Seg Neutrophil % Pleural pH Pleural Total Protein Pleural LDH Pleural Glucose Pleural Amylase 08/25/17 08/26/17 03:35 04:10 Creatinine 1.57 H 1.57 H Fluid WBC Fluid RBC (Manual) Fluid Seg Neutrophil % Pleural pH Pleural Total Protein Pleural LDH Pleural Glucose Pleural Amylase Phys Exam - Physical Examination Constitutional: NAD ETT HEENT: PERRLA, moist MMs, sclera anicteric, oral pharynx no lesions Neck: no JVD Respiratory: no wheezing, no rales, no rhonchi reduced at bases Cardiovascular: RRR, no significant murmur Gastrointestinal: soft, non-tender, no distention, positive bowel sounds Musculoskeletal: no edema, pulses present sedated Deviation from normal: sedated Skin: no rash Dx/Plan (1) Acute respiratory failure with hypoxia Code(s): J96.01 - ACUTE RESPIRATORY FAILURE WITH HYPOXIA Status: Acute Comment: Pulmonary managing, Pt on Bilevel support. (2) Bilateral pulmonary embolism Code(s): I26.99 - OTHER PULMONARY EMBOLISM WITHOUT ACUTE COR PULMONALE Status : Acute Comment: INR improved.Will restart Lovenox BID . (3) Pneumonia Code(s): J18.9 - PNEUMONIA, UNSPECIFIED ORGANISM Status: Acute Qualifiers: Pneumonia type: aspiration pneumonia Aspiration pneumonia type: due to vomit Laterality: bilateral Lung location: lower lobe of lung Qualified Code(s): J69.0 - Pneumonitis due to inhalation of food and vomit Comment: Pt had aspiration following vomiitng, suction as needed.Pt is on IV antibitoics , improved aeration left lung. continue same (4) Atrial fibrillation with RVR Code(s): I48.91 - UNSPECIFIED ATRIAL FIBRILLATION Status: Acute Comment: [place] Rate controlled. (5) Hypertension Code(s): I10 - ESSENTIAL (PRIMARY) HYPERTENSION Status: Acute (6) Pleural effusion, left Code(s): J90 - PLEURAL EFFUSION, NOT ELSEWHERE CLASSIFIED Status: Acute Comment: Improving, following pulmonary recomedation, will repeat chest xray daily.S/P thoracentesis.Fluid Cx negative so far (7) Warfarin-induced coagulopathy Code(s): D68.9 - COAGULATION DEFECT, UNSPECIFIED; T45.515A - ADVERSE EFFECT OF ANTICOAGULANTS, INITIAL ENCOUNTER Status: Acute Comment: Resolved - Plan mancini catheter, continue antibiotics, PT/OT, respiratory therapy, incentive spirometry, DVT proph w/lovenox, DVT proph w/SCDs Restart Lovenox BID w coumadin for B/L PE.monitor INR. -: cont IV ABx.Aspirated .Tube feeds held & now restarted -: ? ARDS.Vent management per PCCM. -: HR controlled on Digoxin.Cardiology following. -: Renal Function stable.On Lasix .monitor.Nephrology following * .am labs. * supportiv care. Review of Systems - Review of Systems Other: cant be obtained as pt is intubated and sedated - Medications/Allergies Allergies/Adverse Reactions: Allergies Allergy/AdvReac Type Severity Reaction Status Date / Time No Known Drug Allergies Allergy Verified 08/20/17 10:46 Medications: Current Medications Acetaminophen (Tylenol Elixir) 650 mg PO Q6H PRN PRN Reason: Fever > 101 or Mild Pain Last Admin: 08/23/17 05:04 Dose: 650 mg Albuterol Sulfate (Ventolin) 2.5 mg NEB Q2H PRN PRN Reason: Wheezing Albuterol/Ipratropium (Duoneb) 3 ml NEB [id number] DIAN Last Admin: 08/26/17 07:22 Dose: 3 ml Benzonatate (Tessalon) 100 mg PO Q4H PRN PRN Reason: Cough Last Admin: 08/23/17 00:11 Dose: 100 mg Bisacodyl (Dulcolax) 10 mg PO DAILYPRN PRN PRN Reason: Constipation Clonidine (Catapres) 0.1 mg PO Q4H PRN PRN Reason: Systolic BP > 170 Digoxin (Lanoxin) 0.125 mg SLOW IVP DAILY DIAN Last Admin: 08/26/17 09:41 Dose: 0.125 mg Furosemide (Lasix) 20 mg SLOW IVP 0600,1400 DIAN Guaifenesin (Robitussin Sf) 200 mg PO Q4H PRN PRN Reason: Cough Last Admin: 08/22/17 18:07 Dose: 200 mg Hydralazine HCl (Apresoline) 10 mg SLOW IVP Q4H PRN PRN Reason: Systolic BP > 180 Levofloxacin 750 mg/ Device 150 mls @ 100 mls/hr IVPB 0600 DIAN Last Admin: 08/26/17 05:25 Dose: 150 mls Fentanyl Citrate 2,000 mcg/ (Sodium Chloride) 100 mls @ 0 mls/hr IV INF DIAN; Per Protocol PRN Reason: Protocol Stop: 09/22/17 03:32 Last Admin: 08/25/17 12:10 Dose: 100 mls Fentanyl Citrate (Fentanyl Bolus) 250 mls @ 0 mls/hr IVPB PRN PRN; As Directed PRN Reason: Breakthrough pain Stop: 09/22/17 03:32 Last Admin: 08/25/17 08:47 Dose: 2.5 mls Diltiazem HCl 125 mg/ Sodium (Chloride) 125 mls @ 0 mls/hr IVPB INF DIAN; Titrate PRN Reason: Protocol Last Admin: 08/25/17 04:48 Dose: 125 mls Cefepime HCl 2 gm/ Syringe 2.5 (ml/ Sterile Water) 12.5 mls @ 150 mls/hr SLOW IVP 1000,2200 DIAN Last Admin: 08/26/17 09:41 Dose: 12.5 mls Midazolam HCl (Versed) 100 mls @ 0 mls/hr IVPB INF DIAN; Titrate PRN Reason: Protocol Last Admin: 08/25/17 21:38 Dose: 100 mls Sodium Chloride (Normal Saline 0.9%) 1,000 mls @ 50 mls/hr IV .Q20H DIAN Loratadine (Claritin) 10 mg PO DAILYPRN PRN PRN Reason: Sinus Symptoms Lorazepam (Ativan) 2 mg SLOW IVP Q2H PRN PRN Reason: Anxiety to achieve Pandey 2-3 Stop: 09/22/17 03:32 Last Admin: 08/24/17 07:10 Dose: 2 mg Methylprednisolone Sodium Succinate (Solu-Medrol) 40 mg IVP Q6HR [facility] Last Admin: 08/26/17 11:56 Dose: 40 mg Metoclopramide HCl (Reglan) 20 mg IVP Q8HR [facility] Last Admin: 08/26/17 05:26 Dose: 20 mg Morphine Sulfate (Morphine) 2 mg SLOW IVP Q2H PRN PRN Reason: Breakthrough pain Stop: 09/22/17 03:32 Nitroglycerin (Nitrostat) 0.4 mg SL Q5MIN PRN PRN Reason: Chest Pain Pantoprazole Sodium (Protonix) 40 mg IVP Q12HR [facility] Last Admin: 08/26/17 09:41 Dose: 40 mg Propofol (Diprivan) 1,000 mg IV INF PRN; Protocol PRN Reason: TO ACHIEVE PANDEY SCORE 2-3 Stop: 09/22/17 03:32 Last Admin: 08/26/17 05:44 Dose: 1,000 mg Sodium Chloride (Flush - Normal Saline) 10 ml IVF PRN PRN PRN Reason: Saline Flush Last Admin: 08/25/17 09:42 Dose: 10 ml
--- NOTE | 2017-08-26 12:42 | HP ---
RENAL MEDICINE HISTORY OF PRESENT ILLNESS: Mr. Marie is a 60-year-old white male who was admitted for pneumonia, underwent acute respiratory failure and currently intubated and was seen by the Renal Service for hi s acute kidney injury. We feel that acute kidney injury was hemodynamically mediated renal dysfuncti on. I suggested by low fraction or excretion of urine sodium and low urine sodium. Currently underg oing IV hydration. Renal function is remaining stable. He started improving his urine output in the last 24 hours. Review of the urine output shows he made about 1 liter of urine output yesterday. PHYSICAL EXAMINATION: VITAL SIGNS: Blood pressure is 121/69, heart rate 78, respiratory rate 21, pulse ox 100%. GENERAL: Intubated, sedated on vent support. SKIN: Adequate turgor. HEENT: Pinkish conjunctivae, anicteric sclerae. NECK: No neck mass, no carotid bruits, no JVD. CHEST: No deformities. LUNGS: Decreased breath sounds. HEART: Normal sinus rhythm. No murmur, no gallops, no rubs. ABDOMEN: Globular, soft, nontender. No masses. EXTREMITIES: No edema. MEDICATIONS: Medications of 08/26/2017 was reviewed. LABORATORY DATA: Laboratories of 08/26/2017; white count 14.9, hemoglobin 8.8, sodium 137, potassium 4.2, chloride 105, carbon dioxide 19, BUN 89, creatinine 1.57, glucose 146, calcium 8.9. ASSESSMENT AND PLAN: 1. Acute kidney injury - hemodynamically mediated renal dysfunction. Continue current IV hydration. No indication for any dialytic intervention. Please note urine output is slowly improving. Contin ue supportive care. 2. Sepsis syndrome/pneumonia - currently on empiric antibiotics - currently patient is noted on cefe pime. Overall, prognosis remains guarded.
[2017-08-26] MEDS: Furosemide 20 MG/2 ML VIAL SLOW IVP SCH (13:07)
[2017-08-26] MEDS: fentaNYL Citrate/PF 2,000 MCG in Sodium Chloride 0.9% 60 ML IV SCH (14:35)
[2017-08-26 15:02] LABS: Actual Bicarbonate (HCO3a) 20.4 mEq/L (22-26); Base Excess (BEa) -3.7 mEq/L (0 (+/-) 2.5); CO2 Tension 33.3 mmHg (35.0-45.0); O2 Tension (PaO2) 76.8 mmHg (80.0-100.0); pH, Arterial 7.41 (7.35-7.45)
[2017-08-26 15:03] LABS: Calcium, Ionized 1.2 mmol/L (1.12-1.30); Hematocrit-ABG 25.4 % (42.0-52.0); Hemoglobin (Hb) 8.4 g/dL (14.0-18.0)
[2017-08-26 15:04] LABS: ALV-art Gradient 240.575 (0-20); Puncture Site L.R.
[2017-08-26] MEDS ORDERED: Sodium Bicarbonate Tab 325 MG TAB PER TUBE PRN (15:13)
[2017-08-26] MEDS ORDERED: Pancrelipase DR 12000 1 CAP FS PRN (15:13)
[2017-08-26] MEDS: Warfarin Sodium 3 MG TAB PO SCH (17:04)
[2017-08-26] MEDS: Enoxaparin Sodium 100 MG/ML SYRINGE SC SCH (21:34)
[2017-08-27 04:10] LABS: INR-International Normal Ratio 1.4; Prothrombin Time 17.3 SEC (12.0-14.7)
[2017-08-27 04:21] LABS: Anion Gap 14 mmol/L (10-20); BUN (Urea Nitrogen) 100 mg/dL (8.4-25.7); Calc. Creatinine Clearance 72 mL/min (70-130); Calcium 8.6 mg/dL (7.8-10.44); Carbon Dioxide 22 mmol/L (22-29); Chloride 111 mmol/L (98-107); Estimated GFR-MDRD 47; Glucose 156 mg/dL (70-105); Potassium 4.7 mmol/L (3.5-5.1); Sodium 142 mmol/L (136-145)
[2017-08-27 04:25] LABS: Band 4 % (5-11); Lymphocytes 10 % (21-51); MDiff Complete? YES; Mean Corpuscular HGB CONC 32.7 g/dL (32.0-36.0); Mean Corpuscular Hemoglobin 30.3 pg (27.0-31.0); Mean Corpuscular Volume 92.7 fl (80.0-94.0); Monocytes 2 % (0-10); Neutrophil 84 % (42-75); PLT Morphology Comment Appears Increased; Platelet Count 412 thou/uL (130-400); RBC Distribution Width 12.9 % (11.5-14.5); Red Blood Cell (RBC) Count 2.66 mill/uL (4.70-6.10); White Blood Cell (WBC) Count 18.3 thou/uL (4.8-10.8)
[2017-08-27] MEDS: Furosemide 20 MG/2 ML VIAL SLOW IVP SCH ×2 (05:06→14:26)
[2017-08-27] MEDS: Metoclopramide HCl 10 MG/2 ML VIAL IVP SCH ×3 (05:07→23:08)
[2017-08-27] MEDS: Propofol 1,000 MG/100 ML VIAL IV PRN ×5 (05:29→23:24)
[2017-08-27 05:33] LABS: Digoxin 0.94 ng/mL (0.8-2.0)
[2017-08-27 06:47] LABS: ALV-art Gradient 152.875 (0-20); Actual Bicarbonate (HCO3a) 21.5 mEq/L (22-26); Base Excess (BEa) -3.3 mEq/L (0 (+/-) 2.5); CO2 Tension 37.3 mmHg (35.0-45.0); Calcium, Ionized 1.2 mmol/L (1.12-1.30); Hematocrit-ABG 25.8 % (42.0-52.0); Hemoglobin (Hb) 8.4 g/dL (14.0-18.0); O2 Tension (PaO2) 83.7 mmHg (80.0-100.0); Puncture Site RRA; pH, Arterial 7.38 (7.35-7.45)
[2017-08-27] MEDS: Pantoprazole 40 MG VIAL IVP SCH ×2 (09:14→20:16)
[2017-08-27] MEDS: Digoxin 0.5 MG/2 ML AMP SLOW IVP SCH (09:14)
[2017-08-27] MEDS ORDERED: Fentanyl 100 MCG/2 ML VIAL SLOW IVP SCH (09:15)
[2017-08-27] MEDS ORDERED: Midazolam HCl 2 mg/2 ml Vial SLOW IVP SCH ×3 (09:15→10:30)
[2017-08-27] MEDS: Cefepime 1 GM, Syringe 2.5 ML in Sterile Water 10 ML SLOW IVP SCH ×2 (09:54→23:01)
--- NOTE | 2017-08-27 10:05 | RAD ---
SINGLE VIEW OF THE CHEST: Date: 08-27-17 Comparison: 08-26-17 History: Respiratory failure. On ventilator. FINDINGS: Single view of the chest shows an enlarged but stable cardiomediastinal silhouette. The endotracheal tube and NG tube are unchanged in position. There are stable multifocal infiltrates in the lungs, lef t greater than right. There also appears to be small left pleural effusion. IMPRESSION: Stable exam. POS: WALE
--- NOTE | 2017-08-27 10:08 | PRG ---
DATE OF SERVICE: 08/27/2017 SUBJECTIVE: Mr. Marie is a 57-year-old white male who was seen for his acute kidney injury. We felt that his kidney injury was related to a hemodynamically mediated renal dysfunction. He continue s to be intubated. 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 He is note d to be agitated, but still not following commands. PHYSICAL EXAMINATION: VITAL SIGNS: Blood pressure is 128/77, heart rate 109, respiratory rate 22, pulse ox 96%. GENERAL: Noted to be sedated and intubated on ventilator support. SKIN: Adequate turgor. HEENT: He has slightly pale conjunctivae, anicteric sclerae. NECK: No neck mass, no carotid bruits, no JVD. CHEST: No deformities. LUNGS: Clear breath sounds. No wheezing, no crackles. HEART: Tachycardic. No murmur, no gallops or rubs. ABDOMEN: Globular, soft, nontender, no masses. EXTREMITIES: No edema, no deformities. MEDICATIONS: 08/27/2017 - Reviewed. LABORATORIES: 08/27/2017 - White count 18.3, hemoglobin 8. Sodium 142, potassium 3.7, chloride 111, carbon dioxide 22, BUN 100, creatinine 1.54, glucose 156, calcium 8.6. ASSESSMENT AND PLAN: 1. Acute kidney injury - hemodynamically mediated renal dysfunction continuing volume and supp ort. No indication for any dialytic intervention. As a matter of fact, creatinine seems to be stabi lizing with the most recent creatinine of 1.54. Urine output is noted to have picked up. 2. Acute respiratory failure - secondary to ? aspiration pneumonia. Currently on ventilator support . Pulmonary following. 3. Borderline anemia. Continue to observe, p.r.n. blood transfusion. Recheck basic metabolic panel and CBC in a.m.
--- NOTE | 2017-08-27 10:15 | PRG ---
DATE OF SERVICE: 08/27/2017 SUBJECTIVE: Mr. Marie is intubated on the ventilator. He does not respond to commands. He does move extremities. REVIEW OF SYSTEMS: Not obtainable, intubated. PHYSICAL EXAMINATION: VITAL SIGNS: Blood pressure 126/66, pulse 100, irregular, atrial fibrillation on the monitor. LUNGS: Clear. CARDIAC: Irregular, irregular. ASSESSMENT: 1. Atrial fibrillation. 2. Pneumonia. 3. Pulmonary emboli. 4. Anemia. PLAN: 1. Continue anticoagulation. 2. Resuming low dose Cardizem. 3. He is on digoxin. 4. Currently on Coumadin, although the INR is subtherapeutic at 1.4.
[2017-08-27] MEDS ORDERED: Fentanyl 100 MCG/2 ML VIAL SLOW IVP PRN ×2 (10:24→10:25)
[2017-08-27] MEDS: fentaNYL Citrate/PF 2,000 MCG in Sodium Chloride 0.9% 60 ML IV SCH (10:39)
--- NOTE | 2017-08-27 11:08 | PRG ---
DATE OF SERVICE: 08/27/2017 SUBJECTIVE: The patient remains intubated on mechanical ventilation. He had endotracheal tube leak while came into the room this morning. Subsequently, we had to re-intubate him orally with a 7.5 end otracheal tube using GlideScope for visualization and tidal CO2 turned yellow afterwards and he was p laced back on mechanical ventilation. OBJECTIVE: VITAL SIGNS: Temperature is 98.8, pulse 109, blood pressure 129/77, O2 saturation 96%. Total intake for 24 hours 2706, output 2665, weight 207 pounds. HEENT: Pupils react, sclera anicteric. Oropharynx copious secretions. NECK: No JVD. LUNGS: Coarse rhonchi. CARDIOVASCULAR: S1, S2 irregularly irregular. ABDOMEN: Soft, nontender. Not tolerating tube feeds. EXTREMITIES: Trace edema throughout. NEUROLOGIC: Moves all 4 extremities. PSYCHIATRIC: Cannot be assessed because he is sedated on mechanical ventilation. LABORATORY DATA: White blood cell count 18.3, hematocrit 24.6, platelet count 412. INR 1.4. pH 7.3 8, pCO2 of 37, pO2 of 83 on SIMV rate 16 with pressure control of 8, FiO2 40%, PEEP 10. Sodium 142, potassium 4.7, chloride 111, CO2 22, BUN 100, creatinine 1.5, glucose 156. ASSESSMENT: 1. Acute respiratory failure, requiring mechanical ventilation. 2. Bilateral pulmonary emboli. 3. Pneumonia. PLAN: 1. Switch to volume ventilation. 2. Reintubated because of a blown endotracheal tube cuff. 3. Continue tube feeds. 4. Continue antibiotics - doses have been adjusted for his poor renal function. 5. Await result of today's chest x-ray. At the current time, the system is down and the films could not be viewed.
[2017-08-27] MEDS: Enoxaparin Sodium 100 MG/ML SYRINGE SC SCH (11:41)
--- NOTE | 2017-08-27 13:27 | PDOC.PN ---
- Subjective Encounter Start Date: 08/27/17 Encounter Start Time: 13:24 Subjective: remains intubated and sedated -: re-intubated this am due to cuff leak - Objective MAR Reviewed: Yes Vital Signs & Weight: Vital Signs (12 hours) Temp Pulse Resp BP Pulse Ox 08/27/17 13:11 87 140/65 08/27/17 12:00 24 H 08/27/17 11:00 98.8 F 08/27/17 10:28 85 137/74 08/27/17 10:00 16 08/27/17 09:14 102 H 08/27/17 09:03 102 H 124/68 08/27/17 08:00 98.8 F 88 27 H 99 08/27/17 07:42 99 126/66 08/27/17 07:00 98.8 F 08/27/17 06:00 18 08/27/17 04:00 99.1 F 21 H 08/27/17 02:21 89 120/53 L 08/27/17 02:00 18 Weight Admit Weight 201 lb Weight 207 lb 14.4 oz Most Recent Monitor Data Heart Rate from ECG 91 NIBP 140/65 NIBP BP-Mean 94 Respiration from ECG 16 SpO2 99 I&O: 08/26/17 08/27/17 08/28/17 06:59 06:59 06:59 Intake Total 4156.9 2706.0 Output Total 1495 2665 950 Balance 2661.9 41.0 -950 Result Diagrams: 08/28/17 04:00 08/28/17 04:00 Additional Labs: Accuchecks 08/27/17 08/27/17 08/26/17 13:00 03:28 23:09 POC Glucose 146 H 156 H 145 H 08/26/17 15:29 POC Glucose 146 H Microbiology 08/23/17 04:50 Nasopharynx - Nares Influenza Types A,B Direct EIA - Final 08/22/17 16:45 Pleural fluid Acid Fast Bacilli Smear - Final 08/20/17 05:29 Venous blood - Left Hand Blood Culture - Final NO GROWTH IN 5 DAYS 08/20/17 05:00 Venous blood - Left Arm Blood Culture - Final NO GROWTH IN 5 DAYS 08/24/17 09:15 Bronchial Washing Respiratory Culture - Preliminary 08/23/17 04:48 Venous blood - Right Hand Blood Culture - Preliminary NO GROWTH AT 48 HOURS 08/23/17 04:48 Venous blood - Left Hand Blood Culture - Preliminary NO GROWTH AT 48 HOURS 08/22/17 16:45 Pleural fluid Body Fluid Culture - Preliminary Laboratory Tests 08/22/17 08/22/17 08/23/17 05:13 21:02 04:52 WBC 20.4 H INR 3.8 6.9 H* Creatinine 08/23/17 08/23/17 08/23/17 04:52 13:17 13:17 WBC 13.7 H INR Creatinine 0.92 1.16 08/24/17 08/24/17 08/24/17 03:24 03:24 03:24 WBC 19.4 H INR 5.1 H* Creatinine 1.89 H 08/25/17 08/25/17 08/25/17 03:34 03:34 03:35 WBC 12.1 H INR 2.1 Creatinine 1.57 H 08/26/17 08/26/17 08/26/17 04:10 04:10 04:10 WBC 14.9 H INR 1.5 Creatinine 1.57 H 08/27/17 08/27/17 08/27/17 03:30 03:30 03:30 WBC 18.3 H INR 1.4 Creatinine 1.54 H Phys Exam - Physical Examination Constitutional: NAD HEENT: PERRLA, moist MMs, sclera anicteric, oral pharynx no lesions ETT Neck: no JVD coarse ,reduced at bases Cardiovascular: no significant murmur, irregular Gastrointestinal: soft, non-tender, no distention, positive bowel sounds Musculoskeletal: no edema, pulses present sedated Deviation from normal: sedated Dx/Plan (1) Acute respiratory failure with hypoxia Code(s): J96.01 - ACUTE RESPIRATORY FAILURE WITH HYPOXIA Status: Acute Comment: Pulmonary managing, (2) Bilateral pulmonary embolism Code(s): I26.99 - OTHER PULMONARY EMBOLISM WITHOUT ACUTE COR PULMONALE Status : Acute Comment: INR improved.Will restart Lovenox dose based w coumadin till INT therapeutic (3) Pneumonia Code(s): J18.9 - PNEUMONIA, UNSPECIFIED ORGANISM Status: Acute Qualifiers: Pneumonia type: aspiration pneumonia Aspiration pneumonia type: due to vomit Laterality: bilateral Lung location: lower lobe of lung Qualified Code(s): J69.0 - Pneumonitis due to inhalation of food and vomit Comment: Pt had aspiration following vomiitng, suction as needed.Pt is on IV antibitoics , improved aeration left lung. continue same (4) Atrial fibrillation with RVR Code(s): I48.91 - UNSPECIFIED ATRIAL FIBRILLATION Status: Acute Comment: Stbale Rate controlled.Digoxin and now cardiazem per cardiology (5) Hypertension Code(s): I10 - ESSENTIAL (PRIMARY) HYPERTENSION Status: Acute (6) Pleural effusion, left Code(s): J90 - PLEURAL EFFUSION, NOT ELSEWHERE CLASSIFIED Status: Acute Comment: Improving, following pulmonary recomedation, will repeat chest xray daily.S/P thoracentesis.Fluid Cx negative so far (7) Warfarin-induced coagulopathy Code(s): D68.9 - COAGULATION DEFECT, UNSPECIFIED; T45.515A - ADVERSE EFFECT OF ANTICOAGULANTS, INITIAL ENCOUNTER Status: Acute Comment: Resolved - Plan continue antibiotics, PT/OT, respiratory therapy, incentive spirometry, DVT proph w/lovenox, DVT proph w/SCDs cont current care.on IV steroids,ABx,IV lasix w good urine output -: renal Fx improving.monitor.nephrology following -: monitor INR. -: daily labs,CXR * . Review of Systems - Review of Systems Other: can not be obtained due to intubation - Medications/Allergies Allergies/Adverse Reactions: Allergies Allergy/AdvReac Type Severity Reaction Status Date / Time No Known Drug Allergies Allergy Verified 08/20/17 10:46 Medications: Current Medications Acetaminophen (Tylenol Elixir) 650 mg PO Q6H PRN PRN Reason: Fever > 101 or Mild Pain Last Admin: 08/23/17 05:04 Dose: 650 mg Albuterol Sulfate (Ventolin) 2.5 mg NEB Q2H PRN PRN Reason: Wheezing Albuterol/Ipratropium (Duoneb) 3 ml NEB [id number] DIAN Last Admin: 08/27/17 13:11 Dose: 3 ml Lipase/Protease/Amylase (Marlene Goff [id number]) 1 cap FS .PER PROTOCOL PRN PRN Reason: TUBE OCCLUSION PROTOCOL Benzonatate (Tessalon) 100 mg PO Q4H PRN PRN Reason: Cough Last Admin: 08/23/17 00:11 Dose: 100 mg Bisacodyl (Dulcolax) 10 mg PO DAILYPRN PRN PRN Reason: Constipation Clonidine (Catapres) 0.1 mg PO Q4H PRN PRN Reason: Systolic BP > 170 Digoxin (Lanoxin) 0.125 mg SLOW IVP DAILY DIAN Last Admin: 08/27/17 09:14 Dose: 0.125 mg Enoxaparin Sodium (Lovenox) 100 mg SC 0900 DIAN Furosemide (Lasix) 20 mg SLOW IVP 0600,1400 DIAN Last Admin: 08/27/17 05:06 Dose: 20 mg Guaifenesin (Robitussin Sf) 200 mg PO Q4H PRN PRN Reason: Cough Last Admin: 08/22/17 18:07 Dose: 200 mg Hydralazine HCl (Apresoline) 10 mg SLOW IVP Q4H PRN PRN Reason: Systolic BP > 180 Fentanyl Citrate 2,000 mcg/ (Sodium Chloride) 100 mls @ 0 mls/hr IV INF DIAN; Per Protocol PRN Reason: Protocol Stop: 09/22/17 03:32 Last Admin: 08/27/17 10:39 Dose: 100 mls Fentanyl Citrate (Fentanyl Bolus) 250 mls @ 0 mls/hr IVPB PRN PRN; As Directed PRN Reason: Breakthrough pain Stop: 09/22/17 03:32 Last Admin: 08/25/17 08:47 Dose: 2.5 mls Midazolam HCl (Versed) 100 mls @ 0 mls/hr IVPB INF DIAN; Titrate PRN Reason: Protocol Last Admin: 08/27/17 03:34 Dose: 100 mls Sodium Chloride (Normal Saline 0.9%) 1,000 mls @ 50 mls/hr IV .Q20H DIAN Last Admin: 08/26/17 19:49 Dose: 1,000 mls Cefepime HCl 1 gm/ Syringe 2.5 (ml/ Sterile Water) 12.5 mls @ 150 mls/hr SLOW IVP 1000,2200 DIAN Last Admin: 08/27/17 09:54 Dose: 12.5 mls Levofloxacin 750 mg/ Device 150 mls @ 100 mls/hr IVPB Q2D@0600 DIAN Diltiazem HCl 125 mg/Miscellaneous Medication 1 each/ Sodium Chloride 125 mls @ 0 mls/hr IVPB INF DIAN; As Directed PRN Reason: Protocol Lorazepam (Ativan) 2 mg SLOW IVP Q2H PRN PRN Reason: Anxiety to achieve Pandey 2-3 Stop: 09/22/17 03:32 Last Admin: 08/24/17 07:10 Dose: 2 mg Methylprednisolone Sodium Succinate (Solu-Medrol) 20 mg IVP Q6HR DIAN Metoclopramide HCl (Reglan) 20 mg IVP Q8HR [facility] Last Admin: 08/27/17 05:07 Dose: 20 mg Miscellaneous Medication (Pharmacy To Dose) 1 each PO DAILY PRN PRN Reason: DOSING Stop: 09/25/17 15:37 Morphine Sulfate (Morphine) 2 mg SLOW IVP Q2H PRN PRN Reason: Breakthrough pain Stop: 09/22/17 03:32 Nitroglycerin (Nitrostat) 0.4 mg SL Q5MIN PRN PRN Reason: Chest Pain Pantoprazole Sodium (Protonix) 40 mg IVP Q12HR [facility] Last Admin: 08/27/17 09:14 Dose: 40 mg Propofol (Diprivan) 1,000 mg IV INF PRN; Protocol PRN Reason: TO ACHIEVE PANDEY SCORE 2-3 Stop: 09/22/17 03:32 Last Admin: 08/27/17 11:01 Dose: 1,000 mg Sodium Bicarbonate (Bicarbonate, Sodium) 650 mg PER TUBE .PER PROTOCOL PRN PRN Reason: ENTERAL TUBE OCCLUSION Sodium Chloride (Flush - Normal Saline) 10 ml IVF PRN PRN PRN Reason: Saline Flush Last Admin: 08/25/17 09:42 Dose: 10 ml Warfarin Sodium (Coumadin) 3 mg PO 1700 DIAN Last Admin: 08/26/17 17:04 Dose: 3 mg
--- NOTE | 2017-08-27 13:42 | PDOC.BRONC ---
Bronchoscopy Procedure Note - Procedure Date: 08/27/17 Time: 13:40 - PreProcedure Diagnosis: mucus plugging - PostProcedure Diagnosis: mucus plugging - Anesthesia Anesthesia: Propofol - Description Patient tolerated procedure: well Complications: none Procedure in Details: Bronchoscopy done on an emergent basis. Patient not ventilating well. Scope placed through adapter on ETT while patient was on mechanical ventilation. There was a large blood clot present in the right mainstem bronchus. This was lavaged with NS and removed. All other airways clear. ETT about 3cm above jalil.
[2017-08-27] MEDS: Diltiazem HCl 125 MG, Admixture Fee 1 EACH in Sodium Chloride 0.9% 100 ML IVPB SCH (16:06)
[2017-08-27] MEDS: Sodium Chloride 0.9% 1,000 ML IV SCH (16:11)
[2017-08-27] MEDS: Warfarin Sodium 3 MG TAB PO SCH (16:16)
[2017-08-27] MEDS ORDERED: Sterile Water 10 ML ONE (22:59)
[2017-08-28] MEDS: Propofol 1,000 MG/100 ML VIAL IV PRN ×5 (03:36→20:42)
[2017-08-28] MEDS ORDERED: Sterile Water 10 ML ONE (04:59)
[2017-08-28 05:13] LABS: INR-International Normal Ratio 1.3; Prothrombin Time 16.2 SEC (12.0-14.7)
[2017-08-28 05:34] LABS: Anion Gap 14 mmol/L (10-20); BUN (Urea Nitrogen) 91 mg/dL (8.4-25.7); Calc. Creatinine Clearance 90 mL/min (70-130); Calcium 8.7 mg/dL (7.8-10.44); Carbon Dioxide 22 mmol/L (22-29); Chloride 115 mmol/L (98-107); Estimated GFR-MDRD 62; Glucose 159 mg/dL (70-105); Sodium 146 mmol/L (136-145)
[2017-08-28] MEDS: Metoclopramide HCl 10 MG/2 ML VIAL IVP SCH ×3 (05:39→21:26)
[2017-08-28] MEDS: Furosemide 20 MG/2 ML VIAL SLOW IVP SCH ×2 (05:40→13:38)
[2017-08-28] MEDS: Lorazepam 2 MG/ML VIAL SLOW IVP PRN ×2 (05:50→10:07)
[2017-08-28 06:32] LABS: Hemoglobin 9.1 g/dL (14.0-18.0); Mean Corpuscular HGB CONC 32.4 g/dL (32.0-36.0); Mean Corpuscular Hemoglobin 30.3 pg (27.0-31.0); Mean Corpuscular Volume 93.5 fl (80.0-94.0); Mean Platelet Volume 7.9 fL (7.4-10.4); Platelet Count 423 thou/uL (130-400); RBC Distribution Width 12.9 % (11.5-14.5); Red Blood Cell (RBC) Count 3.02 mill/uL (4.70-6.10); White Blood Cell (WBC) Count 22.2 thou/uL (4.8-10.8)
[2017-08-28 06:57] LABS: Band 1 % (5-11); Lymphocytes 7 % (21-51); MDiff Complete? YES; Metamyelocyte 1 % (0-0); Monocytes 3 % (0-10); Myelocyte 4 % (0-0); Neutrophil 84 % (42-75); PLT Morphology Comment Appears Increased; Polychromasia SLIGHT = 2-3 cells (100X) (0-2/hpf); Vacuoles SLIGHT
[2017-08-28 06:57] LABS: Actual Bicarbonate (HCO3a) 23.9 mEq/L (22-26); Base Excess (BEa) -0.5 mEq/L (0 (+/-) 2.5); Calcium, Ionized 1.2 mmol/L (1.12-1.30); Hematocrit-ABG 25.7 % (42.0-52.0); Hemoglobin (Hb) 9.2 g/dL (14.0-18.0); O2 Tension (PaO2) 79.6 mmHg (80.0-100.0); Puncture Site RRA; pH, Arterial 7.42 (7.35-7.45)
[2017-08-28] MEDS: Sodium Chloride 0.9% 1,000 ML IV SCH (07:30)
--- NOTE | 2017-08-28 08:34 | PRG ---
DATE OF SERVICE: 08/28/2016 35 minutes critical care time. SUBJECTIVE: The patient remains intubated on mechanical ventilation. There have been no acute hoffman es overnight. PHYSICAL EXAMINATION: VITAL SIGNS: His temperature is 99.7, pulse 126, blood pressure 148/79, O2 saturation 99%, 24-hour i ntake 2280, output 4365. Weight 205. NEUROLOGIC: He is more awake than he was yesterday. He is moving all 4 extremities. HEENT: Unremarkable. NECK: No JVD. LUNGS: Coarse breath sounds bilaterally, some crackles on the left. CARDIAC: S1, S2, tachycardic, and irregular. ABDOMEN: Soft and nontender. EXTREMITIES: Trace edema. LABORATORY DATA: White blood cell count 22.2, hematocrit 28.2, and platelet count 423. INR 1.3. PH 7.42, pCO2 of 38, pO2 of 79 on pressure control ventilation, rate 16, inspiratory pressure of 18 and 10 of PEEP, FiO2 40%. Sodium 146, potassium 5, chloride 115, CO2 of 22, BUN 91, creatinine 1.2, glu cose 159. His chest x-ray shows dense left-sided infiltrate. ASSESSMENT: 1. Acute respiratory failure secondary to pneumonia. 2. Acute renal failure. 3. Pulmonary emboli. PLAN: 1. The patient will be continued on anticoagulation. 2. I have turned down his ventilation and his PEEP with anticipation of extubating in the next day o r two. 3. Continue antibiotics. 4. Steroids dose was reduced yesterday. 5. He is continuing diuretics per Dr. Ríos. 6. Digoxin for rate control of atrial fibrillation.
--- NOTE | 2017-08-28 08:41 | RAD ---
UPRIGHT PORTABLE CHEST 1 VIEW: Date: 08/28/17 HISTORY: 57-year-old male with respiratory insufficiency. COMPARISON: 08/27/17. FINDINGS: Monitor leads overlie the chest. Endotracheal tube and NG tubes are in place. There are persistent pl eural and parenchymal opacity changes in the right chest, including upper, mid, and lower lung zones, with blunting of the left costophrenic angle. There are also some increased opacity changes in the r ight chest. The left chest region does not show any significant change, though appearance of the righ t chest appears slightly improved. IMPRESSION: Extensive persistent pleural and parenchymal opacity changes bilaterally, worse on the left side. Con tinue short-term follow-up. POS: OFF
[2017-08-28] MEDS: Digoxin 0.5 MG/2 ML AMP SLOW IVP SCH (10:07)
[2017-08-28] MEDS: Pantoprazole 40 MG GRANULES PACKET PER TUBE SCH ×2 (10:07→20:42)
[2017-08-28] MEDS: Enoxaparin Sodium 100 MG/ML SYRINGE SC SCH (10:08)
[2017-08-28] MEDS: Sodium Chloride 0.45% 1,000 ML IV SCH (10:08)
[2017-08-28] MEDS: Cefepime 1 GM, Syringe 2.5 ML in Sterile Water 10 ML SLOW IVP SCH ×2 (11:25→21:22)
--- NOTE | 2017-08-28 14:06 | PDOC.PN ---
- Subjective Encounter Start Date: 08/28/17 Encounter Start Time: 14:05 Subjective: remians intubated.had bronch done yesterday w blood clot in left bronchus -: no new events - Objective MAR Reviewed: Yes Vital Signs & Weight: Vital Signs (12 hours) Temp Pulse Resp BP Pulse Ox 08/28/17 13:39 98 158/75 H 08/28/17 12:00 18 08/28/17 11:00 99.5 F 08/28/17 10:53 128 H 155/85 H 08/28/17 10:07 112 H 08/28/17 10:00 26 H 08/28/17 08:00 99.5 F 112 H 24 H 95 08/28/17 07:26 116 H 154/81 H 08/28/17 07:00 99.7 F H 08/28/17 06:00 99 F 20 08/28/17 04:00 18 08/28/17 03:00 99 F 17 08/28/17 02:33 74 139/64 Weight Admit Weight 201 lb Weight 205 lb 11.06 oz Most Recent Monitor Data Heart Rate from ECG 90 NIBP 158/75 NIBP BP-Mean 118 Respiration from ECG 17 SpO2 92 I&O: 08/27/17 08/28/17 08/29/17 06:59 06:59 06:59 Intake Total 2706.0 2280 430 Output Total 2665 4365 2000 Balance 41.0 -2085 -1570 Result Diagrams: 08/28/17 04:00 08/28/17 04:00 Additional Labs: Accuchecks 08/28/17 08/28/17 08/27/17 11:42 03:34 21:41 POC Glucose 164 H 186 H 172 H 08/27/17 17:32 POC Glucose 211 H Microbiology 08/24/17 09:15 Bronchial Washing Respiratory Culture - Final 08/23/17 04:50 Nasopharynx - Nares Influenza Types A,B Direct EIA - Final 08/23/17 04:48 Venous blood - Right Hand Blood Culture - Final NO GROWTH IN 5 DAYS 08/22/17 16:45 Pleural fluid Body Fluid Culture - Final 08/22/17 16:45 Pleural fluid Acid Fast Bacilli Smear - Final 08/20/17 05:29 Venous blood - Left Hand Blood Culture - Final NO GROWTH IN 5 DAYS 08/20/17 05:00 Venous blood - Left Arm Blood Culture - Final NO GROWTH IN 5 DAYS 08/23/17 04:48 Venous blood - Left Hand Blood Culture - Preliminary NO GROWTH AT 48 HOURS Laboratory Tests 08/20/17 08/21/17 08/22/17 10:55 04:07 05:13 INR 2.1 2.3 3.8 08/23/17 08/24/17 08/25/17 04:52 03:24 03:34 INR 6.9 H* 5.1 H* 2.1 08/26/17 08/27/17 08/28/17 04:10 03:30 04:00 INR 1.5 1.4 1.3 Phys Exam - Physical Examination Constitutional: NAD ETT HEENT: PERRLA, moist MMs, sclera anicteric Neck: no JVD Respiratory: no wheezing, no rales, no rhonchi coarse at bases Cardiovascular: RRR, no significant murmur Gastrointestinal: soft, non-tender, no distention, positive bowel sounds Musculoskeletal: no edema, pulses present sedated Deviation from normal: sedated Skin: no rash Dx/Plan (1) Acute respiratory failure with hypoxia Code(s): J96.01 - ACUTE RESPIRATORY FAILURE WITH HYPOXIA Status: Acute Comment: Pulmonary managing.vent weaning as tolerated (2) Bilateral pulmonary embolism Code(s): I26.99 - OTHER PULMONARY EMBOLISM WITHOUT ACUTE COR PULMONALE Status : Acute Comment: INR improved.Continue Lovenox dose based w coumadin till INR therapeutic (3) Pneumonia Code(s): J18.9 - PNEUMONIA, UNSPECIFIED ORGANISM Status: Acute Qualifiers: Pneumonia type: aspiration pneumonia Aspiration pneumonia type: due to vomit Laterality: bilateral Lung location: lower lobe of lung Qualified Code(s): J69.0 - Pneumonitis due to inhalation of food and vomit Comment: Pt had aspiration following vomiitng, suction as needed.Pt is on IV antibitoics , improved aeration left lung. continue same (4) Atrial fibrillation with RVR Code(s): I48.91 - UNSPECIFIED ATRIAL FIBRILLATION Status: Acute Comment: Stbale Rate controlled.Digoxin and now cardiazem per cardiology (5) Hypertension Code(s): I10 - ESSENTIAL (PRIMARY) HYPERTENSION Status: Acute (6) Pleural effusion, left Code(s): J90 - PLEURAL EFFUSION, NOT ELSEWHERE CLASSIFIED Status: Acute Comment: Improving, following pulmonary recomedation, will repeat chest xray daily.S/P thoracentesis.Fluid Cx negative so far (7) Warfarin-induced coagulopathy Code(s): D68.9 - COAGULATION DEFECT, UNSPECIFIED; T45.515A - ADVERSE EFFECT OF ANTICOAGULANTS, INITIAL ENCOUNTER Status: Acute Comment: Resolved - Plan mancini catheter, continue antibiotics, PT/OT, respiratory therapy, DVT proph w/ lovenox, DVT proph w/SCDs Vent weaning as per PCCM.Cont cefepime & levaquin.cont solumedrol -: HR up and down w A-fib.on digoxin and cardiazem. -: sodium higher. will cahnge IVF to 1/2 NS & add Free H2O flushes.Recheck. -: INR still sub therapeutic.Pharmacy managing coumadin.on Lovenox as well. -: renal Fx has much improved w good urine output * .HD stable .may recover from the acute illness if aeration continue sto improve.ARDS like picture.cont lasix. * am labs Review of Systems - Review of Systems Other: unobtainable due to intubated and sedated state - Medications/Allergies Allergies/Adverse Reactions: Allergies Allergy/AdvReac Type Severity Reaction Status Date / Time No Known Drug Allergies Allergy Verified 08/20/17 10:46 Medications: Current Medications Acetaminophen (Tylenol Elixir) 650 mg PO Q6H PRN PRN Reason: Fever > 101 or Mild Pain Last Admin: 08/23/17 05:04 Dose: 650 mg Albuterol Sulfate (Ventolin) 2.5 mg NEB Q2H PRN PRN Reason: Wheezing Albuterol/Ipratropium (Duoneb) 3 ml NEB [id number] DIAN Last Admin: 08/28/17 13:39 Dose: 3 ml Lipase/Protease/Amylase ([place] [id number]) 1 cap FS .PER PROTOCOL PRN PRN Reason: TUBE OCCLUSION PROTOCOL Benzonatate (Tessalon) 100 mg PO Q4H PRN PRN Reason: Cough Last Admin: 08/23/17 00:11 Dose: 100 mg Bisacodyl (Dulcolax) 10 mg PO DAILYPRN PRN PRN Reason: Constipation Last Admin: 08/28/17 13:46 Dose: 10 mg Clonidine (Catapres) 0.1 mg PO Q4H PRN PRN Reason: Systolic BP > 170 Digoxin (Lanoxin) 0.125 mg SLOW IVP DAILY [facility] Last Admin: 08/28/17 10:07 Dose: 0.125 mg Enoxaparin Sodium (Lovenox) 100 mg SC 0900 [facility] Last Admin: 08/28/17 10:08 Dose: 100 mg Furosemide (Lasix) 20 mg SLOW IVP 0600,1400 [facility] Last Admin: 08/28/17 13:38 Dose: 20 mg Guaifenesin (Robitussin Sf) 200 mg PO Q4H PRN PRN Reason: Cough Last Admin: 08/22/17 18:07 Dose: 200 mg Hydralazine HCl (Apresoline) 10 mg SLOW IVP Q4H PRN PRN Reason: Systolic BP > 180 Fentanyl Citrate 2,000 mcg/ (Sodium Chloride) 100 mls @ 0 mls/hr IV INF DIAN; Per Protocol PRN Reason: Protocol Stop: 09/22/17 03:32 Last Admin: 08/27/17 10:39 Dose: 100 mls Fentanyl Citrate (Fentanyl Bolus) 250 mls @ 0 mls/hr IVPB PRN PRN; As Directed PRN Reason: Breakthrough pain Stop: 09/22/17 03:32 Last Admin: 08/25/17 08:47 Dose: 2.5 mls Midazolam HCl (Versed) 100 mls @ 0 mls/hr IVPB INF DIAN; Titrate PRN Reason: Protocol Last Admin: 08/28/17 06:56 Dose: 100 mls Cefepime HCl 1 gm/ Syringe 2.5 (ml/ Sterile Water) 12.5 mls @ 150 mls/hr SLOW IVP 1000,2200 [facility] Last Admin: 08/28/17 11:25 Dose: 12.5 mls Levofloxacin 750 mg/ Device 150 mls @ 100 mls/hr IVPB Q2D@0600 [facility] Diltiazem HCl 125 mg/Miscellaneous Medication 1 each/ Sodium Chloride 125 mls @ 0 mls/hr IVPB INF DIAN; As Directed PRN Reason: Protocol Last Admin: 08/27/17 16:06 Dose: 125 mls Sodium Chloride (1/2 Normal Saline) 1,000 mls @ 50 mls/hr IV .Q20H [facility] Last Admin: 08/28/17 10:08 Dose: 1,000 mls Lorazepam (Ativan) 2 mg SLOW IVP Q2H PRN PRN Reason: Anxiety to achieve Pandey 2-3 Stop: 09/22/17 03:32 Last Admin: 08/28/17 10:07 Dose: 2 mg Methylprednisolone Sodium Succinate (Solu-Medrol) 20 mg IVP Q6HR [facility] Last Admin: 08/28/17 11:25 Dose: 20 mg Metoclopramide HCl (Reglan) 20 mg IVP Q8HR [facility] Last Admin: 08/28/17 13:38 Dose: 20 mg Miscellaneous Medication (Pharmacy To Dose) 1 each PO DAILY PRN PRN Reason: DOSING Stop: 09/25/17 15:37 Morphine Sulfate (Morphine) 2 mg SLOW IVP Q2H PRN PRN Reason: Breakthrough pain Stop: 09/22/17 03:32 Nitroglycerin (Nitrostat) 0.4 mg SL Q5MIN PRN PRN Reason: Chest Pain Pantoprazole Sodium (Protonix) 40 mg PER TUBE Q12HR [facility] Last Admin: 08/28/17 10:07 Dose: 40 mg Propofol (Diprivan) 1,000 mg IV INF PRN; Protocol PRN Reason: TO ACHIEVE PANDEY SCORE 2-3 Stop: 09/22/17 03:32 Last Admin: 08/28/17 13:27 Dose: 1,000 mg Sodium Bicarbonate (Bicarbonate, Sodium) 650 mg PER TUBE .PER PROTOCOL PRN PRN Reason: ENTERAL TUBE OCCLUSION Sodium Chloride (Flush - Normal Saline) 10 ml IVF PRN PRN PRN Reason: Saline Flush Last Admin: 08/25/17 09:42 Dose: 10 ml Warfarin Sodium (Coumadin) 4 mg PO 1700 DIAN
[2017-08-28] MEDS: fentaNYL Citrate/PF 2,000 MCG in Sodium Chloride 0.9% 60 ML IV SCH (15:02)
[2017-08-28] MEDS ORDERED: Warfarin Sodium 2 MG TAB PO SCH (17:00)
[2017-08-28] MEDS: Diltiazem HCl 125 MG, Admixture Fee 1 EACH in Sodium Chloride 0.9% 100 ML IVPB SCH (19:38)
[2017-08-29] MEDS: Propofol 1,000 MG/100 ML VIAL IV PRN ×6 (00:57→23:10)
[2017-08-29 04:17] LABS: INR-International Normal Ratio 1.2
[2017-08-29 04:26] LABS: Anion Gap 13 mmol/L (10-20); BUN (Urea Nitrogen) 72 mg/dL (8.4-25.7); Calc. Creatinine Clearance 114 mL/min (70-130); Calcium 8.7 mg/dL (7.8-10.44); Carbon Dioxide 27 mmol/L (22-29); Chloride 112 mmol/L (98-107); Estimated GFR-MDRD 82; Glucose 172 mg/dL (70-105); Potassium 4.9 mmol/L (3.5-5.1); Sodium 147 mmol/L (136-145)
[2017-08-29 04:39] LABS: Band 1 % (5-11); Hemoglobin 9.4 g/dL (14.0-18.0); Lymphocytes 4 % (21-51); MDiff Complete? YES; Mean Corpuscular HGB CONC 32.3 g/dL (32.0-36.0); Mean Corpuscular Hemoglobin 30.5 pg (27.0-31.0); Mean Corpuscular Volume 94.5 fl (80.0-94.0); Mean Platelet Volume 7.6 fL (7.4-10.4); Metamyelocyte 2 % (0-0); Monocytes 3 % (0-10); Myelocyte 3 % (0-0); Neutrophil 87 % (42-75); Platelet Count 429 thou/uL (130-400); RBC Distribution Width 12.9 % (11.5-14.5); Red Blood Cell (RBC) Count 3.08 mill/uL (4.70-6.10); White Blood Cell (WBC) Count 25.1 thou/uL (4.8-10.8)
[2017-08-29] MEDS: Sodium Chloride 0.45% 1,000 ML IV SCH (04:44)
[2017-08-29] MEDS: Furosemide 20 MG/2 ML VIAL SLOW IVP SCH ×2 (05:18→13:35)
[2017-08-29] MEDS: Metoclopramide HCl 10 MG/2 ML VIAL IVP SCH ×3 (05:19→21:35)
[2017-08-29 07:25] LABS: Actual Bicarbonate (HCO3a) 27.8 mEq/L (22-26); Base Excess (BEa) 2.8 mEq/L (0 (+/-) 2.5); CO2 Tension 44.6 mmHg (35.0-45.0); Hematocrit-ABG 27.7 % (42.0-52.0); Hemoglobin (Hb) 9.8 g/dL (14.0-18.0); O2 Tension (PaO2) 87.7 mmHg (80.0-100.0); pH, Arterial 7.41 (7.35-7.45)
[2017-08-29 07:26] LABS: Analyzer IN Cardio OR; Calcium, Ionized 1.2 mmol/L (1.12-1.30); Puncture Site RB
--- NOTE | 2017-08-29 08:04 | PDOC.PULCC ---
CCU Progress Note: Subj/Obj - Subjective Date: 08/29/17 Time: 08:02 Narrative: deeply sedated and won't wake up to sternal rub - Objective Allergies/Adverse Reactions: Allergies Allergy/AdvReac Type Severity Reaction Status Date / Time No Known Drug Allergies Allergy Verified 08/20/17 10:46 Medications: Current Medications Acetaminophen (Tylenol Elixir) 650 mg PO Q6H PRN PRN Reason: Fever > 101 or Mild Pain Last Admin: 08/23/17 05:04 Dose: 650 mg Albuterol Sulfate (Ventolin) 2.5 mg NEB Q2H PRN PRN Reason: Wheezing Albuterol/Ipratropium (Duoneb) 3 ml NEB [id number] DIAN Last Admin: 08/29/17 07:51 Dose: 3 ml Lipase/Protease/Amylase ([place] [id number]) 1 cap FS .PER PROTOCOL PRN PRN Reason: TUBE OCCLUSION PROTOCOL Benzonatate (Tessalon) 100 mg PO Q4H PRN PRN Reason: Cough Last Admin: 08/23/17 00:11 Dose: 100 mg Bisacodyl (Dulcolax) 10 mg PO DAILYPRN PRN PRN Reason: Constipation Last Admin: 08/28/17 13:46 Dose: 10 mg Clonidine (Catapres) 0.1 mg PO Q4H PRN PRN Reason: Systolic BP > 170 Digoxin (Lanoxin) 0.125 mg SLOW IVP DAILY [facility] Last Admin: 08/28/17 10:07 Dose: 0.125 mg Enoxaparin Sodium (Lovenox) 100 mg SC 0900 [facility] Last Admin: 08/28/17 10:08 Dose: 100 mg Furosemide (Lasix) 20 mg SLOW IVP 0600,1400 [facility] Last Admin: 08/29/17 05:18 Dose: 20 mg Guaifenesin (Robitussin Sf) 200 mg PO Q4H PRN PRN Reason: Cough Last Admin: 08/22/17 18:07 Dose: 200 mg Hydralazine HCl (Apresoline) 10 mg SLOW IVP Q4H PRN PRN Reason: Systolic BP > 180 Fentanyl Citrate 2,000 mcg/ (Sodium Chloride) 100 mls @ 0 mls/hr IV INF DIAN; Per Protocol PRN Reason: Protocol Stop: 09/22/17 03:32 Last Admin: 08/28/17 15:02 Dose: 100 mls Fentanyl Citrate (Fentanyl Bolus) 250 mls @ 0 mls/hr IVPB PRN PRN; As Directed PRN Reason: Breakthrough pain Stop: 09/22/17 03:32 Last Admin: 08/25/17 08:47 Dose: 2.5 mls Levofloxacin 750 mg/ Device 150 mls @ 100 mls/hr IVPB Q2D@0600 [facility] Last Admin: 08/29/17 05:18 Dose: 150 mls Diltiazem HCl 125 mg/Miscellaneous Medication 1 each/ Sodium Chloride 125 mls @ 0 mls/hr IVPB INF DIAN; As Directed PRN Reason: Protocol Last Admin: 08/28/17 19:38 Dose: 125 mls Sodium Chloride (1/2 Normal Saline) 1,000 mls @ 50 mls/hr IV .Q20H [facility] Last Admin: 08/29/17 04:44 Dose: 1,000 mls Piperacillin Sod/Tazobactam (Sod 2.25 gm/ Sodium Chloride) 100 mls @ 200 mls/ hr IVPB Q8HR [facility] Lorazepam (Ativan) 2 mg SLOW IVP Q2H PRN PRN Reason: Anxiety to achieve Pandey 2-3 Stop: 09/22/17 03:32 Last Admin: 08/28/17 10:07 Dose: 2 mg Methylprednisolone Sodium Succinate (Solu-Medrol) 20 mg IVP Q6HR [facility] Last Admin: 08/29/17 05:18 Dose: 20 mg Metoclopramide HCl (Reglan) 20 mg IVP Q8HR [facility] Last Admin: 08/29/17 05:19 Dose: 20 mg Miscellaneous Medication (Pharmacy To Dose) 1 each PO DAILY PRN PRN Reason: DOSING Stop: 09/25/17 15:37 Miscellaneous Medication (Pharmacy To Dose) 1 each IVPB ONE PRN PRN Reason: Pharmacy to dose Morphine Sulfate (Morphine) 2 mg SLOW IVP Q2H PRN PRN Reason: Breakthrough pain Stop: 09/22/17 03:32 Nitroglycerin (Nitrostat) 0.4 mg SL Q5MIN PRN PRN Reason: Chest Pain Pantoprazole Sodium (Protonix) 40 mg PER TUBE Q12HR [facility] Last Admin: 08/28/17 20:42 Dose: 40 mg Propofol (Diprivan) 1,000 mg IV INF PRN; Protocol PRN Reason: TO ACHIEVE PANDEY SCORE 2-3 Stop: 09/22/17 03:32 Last Admin: 08/29/17 04:54 Dose: 1,000 mg Sodium Bicarbonate (Bicarbonate, Sodium) 650 mg PER TUBE .PER PROTOCOL PRN PRN Reason: ENTERAL TUBE OCCLUSION Sodium Chloride (Flush - Normal Saline) 10 ml IVF PRN PRN PRN Reason: Saline Flush Last Admin: 08/25/17 09:42 Dose: 10 ml Warfarin Sodium (Coumadin) 5 mg PO 1700 [facility] MAR Reviewed: Yes Vital Signs and I&O: Vital Signs Temp 98.3 F 08/29/17 07:04 Pulse 85 08/29/17 07:52 Resp 14 08/29/17 07:04 BP 142/76 H 08/29/17 07:52 Pulse Ox 97 08/29/17 07:04 Intake & Output 08/28/17 08/29/17 08/29/17 18:59 06:59 18:59 Intake Total 1987 2805.4 0 Output Total 3600 2390 110 Balance -1612 415.4 -110 Weight 201 lb 15.095 oz Intake: Intake, IV Amount 927 1055.4 0 Diltiazem HCl 125 mg 583 72.7 Admixture Fee 1 each In Sodium Chloride 0.9% 100 ml @ As Directed IVPB INF [facility] Rx#:[id number] Midazolam HCl 100 ml @ 84 69 0 Titrate IVPB INF [facility] Rx#: [id number] Propofol 1000 mg (See 275 Protocol) IV INF PRN Rx#: [id number] Sodium Chloride 0.45% 1, 580 000 ml @ 50 mls/hr IV . Q20H [facility] Rx#:[id number] Sodium Chloride 0.9% 1, 200 000 ml @ 50 mls/hr IV . Q20H [facility] Rx#:[id number] fentaNYL Citrate/PF 2,000 60 58.7 0 mcg In Sodium Chloride 0 .9% 60 ml @ Per Protocol IV INF [facility] Rx#:[id number] Oral Supplement 60 120 Tube Feeding 371 430 Tube Irrigant 630 1200 Output: Output, [place] 3600 2390 110 Other: Voiding Method Indwelling Catheter Indwelling Catheter Indwelling Catheter # Bowel Movements 1 Vent Setting: Vent Adult Resp: Vent Adult Start: 08/23/17 03:32 Freq: CONTINUOUS Status: Complete Protocol: Activity Type Activity Date Activity User E-Sign Co-Sign Detail Recorded Client Recorded Date Recorded By Document 08/27/17 13:43 [facility] [id number] 08/27/17 13:45 [facility] 08/27/17 13:43 RT: Ventilator Mode SIMV Mandatory Breath Type Pressure RR-Set 16 TV- Delivered 789 FIO2 40 PEEP (cm H2O) 10 Pressure Support 10 PIP (cmH2O) 30 I-Time (seconds) 0.9 VE (L/min) 12 Respiratory Comment Pi=18 DR DAVID @ [facility] Resp: Vent Adult Start: 08/27/17 13:43 Freq: CONTINUOUS Status: Active Protocol: Activity Type Activity Date Activity User E-Sign Co-Sign Detail Recorded Client Recorded Date Recorded By Document 08/29/17 07:52 [facility] [id number] 08/29/17 07:57 [facility] 08/29/17 07:52 Mode CPAP/Spont FIO2 40 PEEP (cm H2O) 5 Pressure Support 10 VE (L/min) 7.2 Heater Temp (degrees C) 37.1 HR (60-100) 85 BP (90/60-140/90) 142/76 SPO2 99 Respiratory Comment ETT MOVED;VENT CHANGES MADE BY FRANKIE RT: Ventilator Breath Sounds Rhonchi Respiratory Treatment Given Yes High Inspiratory Pressure Alarm (cm/H2O) 50 High Respiratory Rate Alarm (bpm) 50 High Minute Volume Alarm (L/min) 20 Low Minute Volume Alarm (L/min) 4 Apnea Time Alarm (seconds) 20 Apnea Rate Alarm (bpm) 16 Airway Oral Endotracheal Tube Size (mm) 7.5 Position at Lip 23 Cuff Pressure (Cm) 28 Ambu Bag/ Mask at Bedside Yes Plugged in to Emergency Outlet Yes RT: Suction Suction: ETT Secretions Amount Small Secretions Consistency Thick Secretions Color Rust Spontaneous Breathing Test: not done CCU Progress Note: Exam - Physical Exam Constitutional: NAD HEENT: PERRLA, sclera anicteric Neck: no JVD Cardiovascular: RRR Respiratory: rhonchi Gastrointestinal: soft, non-tender Musculoskeletal: no edema, edema present Deviation from normal: difficult to assess due to level of sedation Lymphatic: no nodes Deviation from normal: sedated Skin: no rash CCU Progress Note: Data - Labs Result Diagrams: 08/29/17 03:30 08/29/17 03:30 Lab results: Laboratory Results 08/22/17 08/27/17 08/27/17 16:45 13:00 17:32 WBC RBC Hgb Hct MCV MCH MCHC RDW Plt Count MPV Neutrophils % (Manual) Band Neuts % (Manual) Lymphocytes % (Manual) Monocytes % (Manual) Metamyelocytes % (Man) Myelocytes % Neutrophils # Lymphocytes # WBC Morphology Plt Morphology Comment Polychromasia PT INR Specimen Type Puncture Site Bicarbonate Actual ABG pH ABG pCO2 ABG pO2 ABG O2 Sat Calc/Annabel ABG O2 Content ABG Base Excess ABG Hematocrit ABG Hemoglobin ABG Oxyhemoglobin ABG Carboxyhemoglobin ABG Methemoglobin Reyes Test A-a O2 Gradient Ionized Calcium Mode of Support Mechanical Rate Spontaneous Rate Inspired O2 Inspiratory Time Tidal Volume Spontaneous Tidal Vol Peak Inspir Pressure Pressure Support PEEP or CPAP Sodium Potassium Chloride Carbon Dioxide Anion Gap BUN Creatinine Estimated GFR (MDRD) Glucose POC Glucose 146 H 211 H Calcium Fungal Smear Not Reportable 08/27/17 08/28/17 08/28/17 21:41 03:34 04:00 WBC RBC Hgb Hct MCV MCH MCHC RDW Plt Count MPV Neutrophils % (Manual) Band Neuts % (Manual) Lymphocytes % (Manual) Monocytes % (Manual) Metamyelocytes % (Man) Myelocytes % Neutrophils # Lymphocytes # WBC Morphology Plt Morphology Comment Polychromasia PT 16.2 H INR 1.3 Specimen Type Puncture Site Bicarbonate Actual ABG pH ABG pCO2 ABG pO2 ABG O2 Sat Calc/Annabel ABG O2 Content ABG Base Excess ABG Hematocrit ABG Hemoglobin ABG Oxyhemoglobin ABG Carboxyhemoglobin ABG Methemoglobin Reyes Test A-a O2 Gradient Ionized Calcium Mode of Support Mechanical Rate Spontaneous Rate Inspired O2 Inspiratory Time Tidal Volume Spontaneous Tidal Vol Peak Inspir Pressure Pressure Support PEEP or CPAP Sodium Potassium Chloride Carbon Dioxide Anion Gap BUN Creatinine Estimated GFR (MDRD) Glucose POC Glucose 172 H 186 H Calcium Fungal Smear 08/28/17 08/28/17 08/28/17 04:00 04:00 06:50 WBC 22.2 H RBC 3.02 L Hgb 9.1 L Hct 28.2 L MCV 93.5 MCH 30.3 MCHC 32.4 RDW 12.9 Plt Count 423 H MPV 7.9 Neutrophils % (Manual) 84 H Band Neuts % (Manual) 1 L Lymphocytes % (Manual) 7 L Monocytes % (Manual) 3 Metamyelocytes % (Man) 1 H Myelocytes % 4 H Neutrophils # Not Reportable Lymphocytes # Not Reportable WBC Morphology SLIGHT Plt Morphology Comment Appears Increased H Polychromasia SLIGHT = 2-3 cells PT INR Specimen Type ARTERIAL Puncture Site RRA Bicarbonate Actual 23.9 ABG pH 7.42 ABG pCO2 38.0 ABG pO2 79.6 L ABG O2 Sat Calc/Annabel 97.2 ABG O2 Content 12.4 L ABG Base Excess -0.5 ABG Hematocrit 25.7 L ABG Hemoglobin 9.2 L ABG Oxyhemoglobin 95.3 ABG Carboxyhemoglobin 1.3 ABG Methemoglobin 0.7 Reyes Test POSITIVE A-a O2 Gradient 156.100 H Ionized Calcium 1.2 Mode of Support SIMV/PC Mechanical Rate 16 Spontaneous Rate 9 Inspired O2 40 Inspiratory Time 0.90 Tidal Volume 764 Spontaneous Tidal Vol 634 Peak Inspir Pressure 18 Pressure Support 10 PEEP or CPAP 10.0 Sodium 146 H 148 Potassium 5.0 4.6 Chloride 115 H 111 H Carbon Dioxide 22 Anion Gap 14 BUN 91 H Creatinine 1.22 Estimated GFR (MDRD) 62 Glucose 159 H POC Glucose Calcium 8.7 Fungal Smear 08/28/17 08/28/17 08/28/17 11:42 16:24 21:40 WBC RBC Hgb Hct MCV MCH MCHC RDW Plt Count MPV Neutrophils % (Manual) Band Neuts % (Manual) Lymphocytes % (Manual) Monocytes % (Manual) Metamyelocytes % (Man) Myelocytes % Neutrophils # Lymphocytes # WBC Morphology Plt Morphology Comment Polychromasia PT INR Specimen Type Puncture Site Bicarbonate Actual ABG pH ABG pCO2 ABG pO2 ABG O2 Sat Calc/Annabel ABG O2 Content ABG Base Excess ABG Hematocrit ABG Hemoglobin ABG Oxyhemoglobin ABG Carboxyhemoglobin ABG Methemoglobin Reyes Test A-a O2 Gradient Ionized Calcium Mode of Support Mechanical Rate Spontaneous Rate Inspired O2 Inspiratory Time Tidal Volume Spontaneous Tidal Vol Peak Inspir Pressure Pressure Support PEEP or CPAP Sodium Potassium Chloride Carbon Dioxide Anion Gap BUN Creatinine Estimated GFR (MDRD) Glucose POC Glucose 164 H 195 H 178 H Calcium Fungal Smear 08/29/17 08/29/17 08/29/17 03:30 03:30 03:30 WBC 25.1 H RBC 3.08 L Hgb 9.4 L Hct 29.1 L MCV 94.5 H MCH 30.5 MCHC 32.3 RDW 12.9 Plt Count 429 H MPV 7.6 Neutrophils % (Manual) 87 H Band Neuts % (Manual) 1 L Lymphocytes % (Manual) 4 L Monocytes % (Manual) 3 Metamyelocytes % (Man) 2 H Myelocytes % 3 H Neutrophils # Lymphocytes # WBC Morphology Plt Morphology Comment Polychromasia PT 15.0 H INR 1.2 Specimen Type Puncture Site Bicarbonate Actual ABG pH ABG pCO2 ABG pO2 ABG O2 Sat Calc/Annabel ABG O2 Content ABG Base Excess ABG Hematocrit ABG Hemoglobin ABG Oxyhemoglobin ABG Carboxyhemoglobin ABG Methemoglobin Reyes Test A-a O2 Gradient Ionized Calcium Mode of Support Mechanical Rate Spontaneous Rate Inspired O2 Inspiratory Time Tidal Volume Spontaneous Tidal Vol Peak Inspir Pressure Pressure Support PEEP or CPAP Sodium 147 H Potassium 4.9 Chloride 112 H Carbon Dioxide 27 Anion Gap 13 BUN 72 H Creatinine 0.95 Estimated GFR (MDRD) 82 Glucose 172 H POC Glucose Calcium 8.7 Fungal Smear 08/29/17 08/29/17 04:53 07:00 WBC RBC Hgb Hct MCV MCH MCHC RDW Plt Count MPV Neutrophils % (Manual) Band Neuts % (Manual) Lymphocytes % (Manual) Monocytes % (Manual) Metamyelocytes % (Man) Myelocytes % Neutrophils # Lymphocytes # WBC Morphology Plt Morphology Comment Polychromasia PT INR Specimen Type ARTERIAL Puncture Site RB Bicarbonate Actual 27.8 H ABG pH 7.41 ABG pCO2 44.6 ABG pO2 87.7 ABG O2 Sat Calc/Annabel 97.2 ABG O2 Content 13.2 L ABG Base Excess 2.8 H ABG Hematocrit 27.7 L ABG Hemoglobin 9.8 L ABG Oxyhemoglobin 95.3 ABG Carboxyhemoglobin 1.6 ABG Methemoglobin 0.5 Reyes Test POSITIVE A-a O2 Gradient 139.750 H Ionized Calcium 1.2 Mode of Support SIMV/PI=12 Mechanical Rate 10 Spontaneous Rate Inspired O2 40 Inspiratory Time Tidal Volume Spontaneous Tidal Vol Peak Inspir Pressure Pressure Support 10 PEEP or CPAP 5.0 Sodium 147 Potassium 4.8 Chloride 108 H Carbon Dioxide Anion Gap BUN Creatinine Estimated GFR (MDRD) Glucose POC Glucose 176 H Calcium Fungal Smear - ABG Interpretation Attestation: I reviewed and interpreted this ABG. ABG Results: ABG pH 7.41 (7.35-7.45) 08/29/17 07:00 ABG pCO2 44.6 mmHg (35.0-45.0) 08/29/17 07:00 ABG O2 Sat Calc/Annabel 97.2 % (94.0-100.0) 08/29/17 07:00 ABG Base Excess 2.8 mEq/L (0 (+/-) 2.5) H 08/29/17 07:00 Interpretation: normal - Radiology Interpretation Chest x-ray Status: image reviewed by me (diffuse b infiltrates) CCU Progress Note: A/P - Problems (1) Acute respiratory failure with hypoxia Current Visit: Yes Status: Acute Code(s): J96.01 - ACUTE RESPIRATORY FAILURE WITH HYPOXIA (2) Bilateral pulmonary embolism Current Visit: Yes Status: Acute Code(s): I26.99 - OTHER PULMONARY EMBOLISM WITHOUT ACUTE COR PULMONALE (3) Pneumonia Current Visit: Yes Status: Acute Code(s): J18.9 - PNEUMONIA, UNSPECIFIED ORGANISM Qualifiers: Pneumonia type: aspiration pneumonia Aspiration pneumonia type: due to vomit Laterality: bilateral Lung location: lower lobe of lung Qualified Code(s): J69.0 - Pneumonitis due to inhalation of food and vomit - Time Spent with Patient Time (minutes): 30 (cc time) - Plan Plan: Not weanable until less sedated WBC increasing and I am worried that this may be anaerobic or MRSA Add Zosyn and Vanc wean steroids try on CPAP Hold versed in preparation for extubation in the next 48hrs continues lovenox at renal dosing. INR slow to get to 2.0 due to recent vit K
--- NOTE | 2017-08-29 08:06 | RAD ---
CHEST 1 VIEW: Date: 08/29/17 HISTORY: Dyspnea. Follow-up. COMPARISON: 08/28/17. FINDINGS: Cardiac silhouette is magnified and enlarged. Pulmonary vasculature is engorged. Widespread air space and interstitial opacity throughout each lung with most focal consolidation at the left lateral lung base is similar to the previous exam. Mediastinum is midline. Lines and tubes appear unchanged in po sition. [employer] leads overlie the chest. IMPRESSION: Pulmonary edema and other findings are stable. POS: BRIAN
[2017-08-29] MEDS: Enoxaparin Sodium 100 MG/ML SYRINGE SC SCH (08:33)
[2017-08-29] MEDS: Pantoprazole 40 MG GRANULES PACKET PER TUBE SCH ×2 (08:33→21:01)
[2017-08-29] MEDS: Digoxin 0.5 MG/2 ML AMP SLOW IVP SCH (08:33)
[2017-08-29] MEDS: Vancomycin HCl 1.5 GM in Sodium Chloride 0.9% 250 ML 300 ML IVPB SCH ×2 (08:37→21:01)
[2017-08-29] MEDS: Lorazepam 2 MG/ML VIAL SLOW IVP PRN ×4 (09:27→21:28)
[2017-08-29] MEDS: Acetaminophen 650 MG/20.3 ML UDCUP PO PRN (13:02)
[2017-08-29] MEDS: Piperacillin/Tazobactam 2.25 GM in Sodium Chloride 0.9% 100 ML IVPB SCH ×2 (13:35→21:28)
--- NOTE | 2017-08-29 13:41 | PDOC.PN ---
- Subjective Encounter Start Date: 08/29/17 Encounter Start Time: 13:39 Subjective: remains sedated despite holding sedation -: no acute new events overnight - Objective MAR Reviewed: Yes Vital Signs & Weight: Vital Signs (12 hours) Temp Pulse Resp BP Pulse Ox 08/29/17 12:00 100.1 F H 9 L 08/29/17 10:23 93 142/83 H 08/29/17 10:00 12 08/29/17 08:33 85 08/29/17 08:00 9 L 08/29/17 07:52 85 142/76 H 08/29/17 07:04 98.3 F 86 14 97 08/29/17 07:00 98.3 F 08/29/17 06:00 16 08/29/17 05:00 98.8 F 08/29/17 04:00 11 L 08/29/17 03:00 15 08/29/17 02:37 92 08/29/17 02:00 98.7 F 19 Weight Admit Weight 201 lb Weight 201 lb 15.095 oz Most Recent Monitor Data Heart Rate from ECG 88 NIBP 116/62 NIBP BP-Mean 79 Respiration from ECG 10 SpO2 100 I&O: 08/28/17 08/29/17 08/30/17 06:59 06:59 06:59 Intake Total 2280 4793.4 900 Output Total 4365 5990 935 [facility] -2085 -1196.6 -35 Result Diagrams: 08/29/17 03:30 08/29/17 03:30 Additional Labs: Accuchecks 08/29/17 08/29/17 08/28/17 09:42 04:53 21:40 POC Glucose 166 H 176 H 178 H 08/28/17 16:24 POC Glucose 195 H Microbiology 08/24/17 09:15 Bronchial Washing Respiratory Culture - Final 08/23/17 04:50 Nasopharynx - Nares Influenza Types A,B Direct EIA - Final 08/23/17 04:48 Venous blood - Right Hand Blood Culture - Final NO GROWTH IN 5 DAYS 08/23/17 04:48 Venous blood - Left Hand Blood Culture - Final NO GROWTH IN 5 DAYS 08/22/17 16:45 Pleural fluid Body Fluid Culture - Final 08/22/17 16:45 Pleural fluid Acid Fast Bacilli Smear - Final 08/20/17 05:29 Venous blood - Left Hand Blood Culture - Final NO GROWTH IN 5 DAYS 08/20/17 05:00 Venous blood - Left Arm Blood Culture - Final NO GROWTH IN 5 DAYS Laboratory Tests 08/22/17 08/22/17 08/23/17 05:13 21:02 04:52 WBC 20.4 H INR 3.8 6.9 H* Sodium 08/23/17 08/23/17 08/23/17 04:52 13:17 13:17 WBC 13.7 H INR Sodium 127 L 127 L 08/24/17 08/24/17 08/24/17 03:24 03:24 03:24 WBC 19.4 H INR 5.1 H* Sodium 132 L 08/25/17 08/25/17 08/25/17 03:34 03:34 03:35 WBC 12.1 H INR 2.1 Sodium 134 L 08/26/17 08/26/17 08/26/17 04:10 04:10 04:10 WBC 14.9 H INR 1.5 Sodium 137 08/27/17 08/27/17 08/27/17 03:30 03:30 03:30 WBC 18.3 H INR 1.4 Sodium 142 08/28/17 08/28/17 08/28/17 04:00 04:00 04:00 WBC 22.2 H INR 1.3 Sodium 146 H 08/29/17 08/29/17 08/29/17 03:30 03:30 03:30 WBC 25.1 H INR 1.2 Sodium 147 H Phys Exam - Physical Examination Constitutional: NAD HEENT: PERRLA, moist MMs, sclera anicteric, oral pharynx no lesions Neck: no nodes, no JVD, supple, full ROM Respiratory: no wheezing, no rales, no rhonchi, clear to auscultation bilateral coarse at bases Cardiovascular: RRR, no significant murmur Gastrointestinal: soft, no distention, positive bowel sounds Musculoskeletal: no edema, pulses present moves legs freely. Dx/Plan (1) Acute respiratory failure with hypoxia Code(s): J96.01 - ACUTE RESPIRATORY FAILURE WITH HYPOXIA Status: Acute Comment: Pulmonary managing.vent weaning as tolerated (2) Bilateral pulmonary embolism Code(s): I26.99 - OTHER PULMONARY EMBOLISM WITHOUT ACUTE COR PULMONALE Status : Acute Comment: INR improved.Continue Lovenox dose based w coumadin till INR therapeutic (3) Pneumonia Code(s): J18.9 - PNEUMONIA, UNSPECIFIED ORGANISM Status: Acute Qualifiers: Pneumonia type: aspiration pneumonia Aspiration pneumonia type: due to vomit Laterality: bilateral Lung location: lower lobe of lung Qualified Code(s): J69.0 - Pneumonitis due to inhalation of food and vomit Comment: Pt had aspiration following vomiitng, suction as needed.Pt is on IV antibitoics , improved aeration left lung. continue same (4) Atrial fibrillation with RVR Code(s): I48.91 - UNSPECIFIED ATRIAL FIBRILLATION Status: Acute Comment: [place] Rate controlled.Digoxin and now cardiazem per cardiology (5) Hypertension Code(s): I10 - ESSENTIAL (PRIMARY) HYPERTENSION Status: Acute (6) Pleural effusion, left Code(s): J90 - PLEURAL EFFUSION, NOT ELSEWHERE CLASSIFIED Status: Acute Comment: Improving, following pulmonary recomedation, will repeat chest xray daily.S/P thoracentesis.Fluid Cx negative so far (7) Warfarin-induced coagulopathy Code(s): D68.9 - COAGULATION DEFECT, UNSPECIFIED; T45.515A - ADVERSE EFFECT OF ANTICOAGULANTS, INITIAL ENCOUNTER Status: Acute Comment: Resolved - Plan mancini catheter, continue antibiotics, respiratory therapy, out of bed/ambulate, DVT proph w/SCDs due to fever ,new ABx added.monitor.sedation off,weaning trial prn -: cont lasix iv.strict I/Os -: sodium still high. cont 1/2 NS. -: cont lovenox w coumadin till INR therapeutic. -: am labs.PCCM,cardiology follwoing * . Review of Systems - Review of Systems Other: unobtainable due to somnolence and intubation - Medications/Allergies Allergies/Adverse Reactions: Allergies Allergy/AdvReac Type Severity Reaction Status Date / Time No Known Drug Allergies Allergy Verified 08/20/17 10:46 Medications: Current Medications Acetaminophen (Tylenol Elixir) 650 mg PO Q6H PRN PRN Reason: Fever > 101 or Mild Pain Last Admin: 08/29/17 13:02 Dose: 650 mg Albuterol Sulfate (Ventolin) 2.5 mg NEB Q2H PRN PRN Reason: Wheezing Albuterol/Ipratropium (Duoneb) 3 ml NEB [id number] DIAN Last Admin: 08/29/17 13:36 Dose: 3 ml Lipase/Protease/Amylase ([place] [id number]) 1 cap FS .PER PROTOCOL PRN PRN Reason: TUBE OCCLUSION PROTOCOL Benzonatate (Tessalon) 100 mg PO Q4H PRN PRN Reason: Cough Last Admin: 08/23/17 00:11 Dose: 100 mg Bisacodyl (Dulcolax) 10 mg PO DAILYPRN PRN PRN Reason: Constipation Last Admin: 08/28/17 13:46 Dose: 10 mg Clonidine (Catapres) 0.1 mg PO Q4H PRN PRN Reason: Systolic BP > 170 Digoxin (Lanoxin) 0.125 mg SLOW IVP DAILY [facility] Last Admin: 08/29/17 08:33 Dose: 0.125 mg Enoxaparin Sodium (Lovenox) 100 mg SC 0900 [facility] Last Admin: 08/29/17 08:33 Dose: 100 mg Furosemide (Lasix) 20 mg SLOW IVP 0600,1400 [facility] Last Admin: 08/29/17 13:35 Dose: 20 mg Guaifenesin (Robitussin Sf) 200 mg PO Q4H PRN PRN Reason: Cough Last Admin: 08/22/17 18:07 Dose: 200 mg Hydralazine HCl (Apresoline) 10 mg SLOW IVP Q4H PRN PRN Reason: Systolic BP > 180 Fentanyl Citrate 2,000 mcg/ (Sodium Chloride) 100 mls @ 0 mls/hr IV INF DIAN; Per Protocol PRN Reason: Protocol Stop: 09/22/17 03:32 Last Admin: 08/28/17 15:02 Dose: 100 mls Fentanyl Citrate (Fentanyl Bolus) 250 mls @ 0 mls/hr IVPB PRN PRN; As Directed PRN Reason: Breakthrough pain Stop: 09/22/17 03:32 Last Admin: 08/25/17 08:47 Dose: 2.5 mls Levofloxacin 750 mg/ Device 150 mls @ 100 mls/hr IVPB Q2D@0600 [facility] Last Admin: 08/29/17 05:18 Dose: 150 mls Diltiazem HCl 125 mg/Miscellaneous Medication 1 each/ Sodium Chloride 125 mls @ 0 mls/hr IVPB INF DIAN; As Directed PRN Reason: Protocol Last Admin: 08/28/17 19:38 Dose: 125 mls Sodium Chloride (1/2 Normal Saline) 1,000 mls @ 50 mls/hr IV .Q20H [facility] Last Admin: 08/29/17 04:44 Dose: 1,000 mls Piperacillin Sod/Tazobactam (Sod 2.25 gm/ Sodium Chloride) 100 mls @ 200 mls/ hr IVPB Q8HR [facility] Last Admin: 08/29/17 13:35 Dose: 100 mls Vancomycin HCl 1.5 gm/ Sodium (Chloride) 300 mls @ 200 mls/hr IVPB Q12HR [facility] Last Admin: 08/29/17 08:37 Dose: 300 mls Lorazepam (Ativan) 2 mg SLOW IVP Q2H PRN PRN Reason: Anxiety to achieve Pandey 2-3 Stop: 09/22/17 03:32 Last Admin: 08/29/17 11:29 Dose: 2 mg Methylprednisolone Sodium Succinate (Solu-Medrol) 20 mg IVP Q6HR [facility] Last Admin: 08/29/17 11:31 Dose: 20 mg Metoclopramide HCl (Reglan) 20 mg IVP Q8HR [facility] Last Admin: 08/29/17 13:35 Dose: 20 mg Miscellaneous Medication (Pharmacy To Dose) 1 each PO DAILY PRN PRN Reason: DOSING Stop: 09/25/17 15:37 Miscellaneous Medication (Pharmacy To Dose) 1 each IVPB PRN PRN PRN Reason: Pharmacy to dose Morphine Sulfate (Morphine) 2 mg SLOW IVP Q2H PRN PRN Reason: Breakthrough pain Stop: 09/22/17 03:32 Nitroglycerin (Nitrostat) 0.4 mg SL Q5MIN PRN PRN Reason: Chest Pain Pantoprazole Sodium (Protonix) 40 mg PER TUBE Q12HR [facility] Last Admin: 08/29/17 08:33 Dose: 40 mg Propofol (Diprivan) 1,000 mg IV INF PRN; Protocol PRN Reason: TO ACHIEVE PANDEY SCORE 2-3 Stop: 09/22/17 03:32 Last Admin: 08/29/17 11:29 Dose: 1,000 mg Sodium Bicarbonate (Bicarbonate, Sodium) 650 mg PER TUBE .PER PROTOCOL PRN PRN Reason: ENTERAL TUBE OCCLUSION Sodium Chloride (Flush - Normal Saline) 10 ml IVF PRN PRN PRN Reason: Saline Flush Last Admin: 08/25/17 09:42 Dose: 10 ml Warfarin Sodium (Coumadin) 5 mg PO 1700 DIAN
[2017-08-29] MEDS: Diltiazem HCl 125 MG, Admixture Fee 1 EACH in Sodium Chloride 0.9% 100 ML IVPB SCH (14:54)
[2017-08-29] MEDS ORDERED: Warfarin Sodium 5 MG TAB PO SCH (17:00)
--- NOTE | 2017-08-29 17:26 | PRG ---
DATE OF SERVICE: 08/29/2017 Mr. Marie remains on the ventilator. Sedation is being decreased. Moves all extremities. REVIEW OF SYSTEMS: Not obtainable. PHYSICAL EXAMINATION: VITAL SIGNS: Blood pressure 139/77, pulse is between 80-110, it is atrial fibrillation. LUNGS: Rhonchi. CARDIAC: Irregularly irregular. ABDOMEN: Soft, nontender. EXTREMITIES: There is no edema. ASSESSMENT: 1. Chronic atrial fibrillation. 2. Respiratory failure. 3. Pneumonia. 4. Bilateral pulmonary embolism. PLAN: 1. Continue antibiotics. 2. Continue diltiazem. 3. Continue digoxin. 4. Not weanable at the present time from the ventilator. 5. Could be somewhat volume overloaded. Patient is already on intravenous diuretic twice a day.
[2017-08-30] MEDS: Lorazepam 2 MG/ML VIAL SLOW IVP PRN ×5 (01:51→22:34)
[2017-08-30] MEDS: Propofol 1,000 MG/100 ML VIAL IV PRN ×7 (02:57→22:57)
[2017-08-30 04:15] LABS: INR-International Normal Ratio 1.2; Prothrombin Time 14.9 SEC (12.0-14.7)
[2017-08-30 04:24] LABS: Band 6 % (5-11); Hemoglobin 9.6 g/dL (14.0-18.0); Lymphocytes 7 % (21-51); MDiff Complete? YES; Mean Corpuscular HGB CONC 31.5 g/dL (32.0-36.0); Mean Corpuscular Hemoglobin 29.8 pg (27.0-31.0); Mean Corpuscular Volume 94.7 fl (80.0-94.0); Mean Platelet Volume 7.6 fL (7.4-10.4); Monocytes 1 % (0-10); Neutrophil 86 % (42-75); Nucleated RBC 1 % (0); Platelet Count 398 thou/uL (130-400); Red Blood Cell (RBC) Count 3.22 mill/uL (4.70-6.10); White Blood Cell (WBC) Count 28.8 thou/uL (4.8-10.8)
[2017-08-30 04:28] LABS: Anion Gap 13 mmol/L (10-20); BUN (Urea Nitrogen) 60 mg/dL (8.4-25.7); Calc. Creatinine Clearance 119 mL/min (70-130); Calcium 8.6 mg/dL (7.8-10.44); Carbon Dioxide 28 mmol/L (22-29); Chloride 109 mmol/L (98-107); Estimated GFR-MDRD 86; Glucose 151 mg/dL (70-105); Potassium 5.6 mmol/L (3.5-5.1); Sodium 144 mmol/L (136-145)
[2017-08-30] MEDS: fentaNYL Citrate/PF 2,000 MCG in Sodium Chloride 0.9% 60 ML IV SCH (05:28)
[2017-08-30] MEDS: Furosemide 20 MG/2 ML VIAL SLOW IVP SCH (05:50)
[2017-08-30] MEDS: Metoclopramide HCl 10 MG/2 ML VIAL IVP SCH ×3 (05:50→21:31)
[2017-08-30] MEDS: Piperacillin/Tazobactam 2.25 GM in Sodium Chloride 0.9% 100 ML IVPB SCH ×3 (05:51→21:31)
[2017-08-30] MEDS: Diltiazem HCl 125 MG, Admixture Fee 1 EACH in Sodium Chloride 0.9% 100 ML IVPB SCH ×3 (06:32→23:45)
[2017-08-30 06:43] LABS: CO2 Tension 48.4 mmHg (35.0-45.0); O2 Tension (PaO2) 97.5 mmHg (80.0-100.0); pH, Arterial 7.41 (7.35-7.45)
[2017-08-30 06:44] LABS: Actual Bicarbonate (HCO3a) 29.6 mEq/L (22-26); Base Excess (BEa) 4.3 mEq/L (0 (+/-) 2.5); Calcium, Ionized 1.2 mmol/L (1.12-1.30); Hematocrit-ABG 29.3 % (42.0-52.0); Hemoglobin (Hb) 9.7 g/dL (14.0-18.0); Puncture Site RRA
[2017-08-30] MEDS: Sodium Chloride 0.45% 1,000 ML IV SCH ×2 (07:25→08:45)
[2017-08-30] MEDS: Enoxaparin Sodium 100 MG/ML SYRINGE SC SCH (08:45)
[2017-08-30] MEDS: Digoxin 0.5 MG/2 ML AMP SLOW IVP SCH (08:45)
[2017-08-30] MEDS: Vancomycin HCl 1.5 GM in Sodium Chloride 0.9% 250 ML 300 ML IVPB SCH (08:46)
[2017-08-30] MEDS: Pantoprazole 40 MG GRANULES PACKET PER TUBE SCH ×2 (08:46→21:31)
[2017-08-30 09:06] LABS: Potassium 6.1 mmol/L (3.5-5.1)
--- NOTE | 2017-08-30 09:08 | RAD ---
SINGLE VIEW OF THE CHEST: COMPARISON: 08/29/17. HISTORY: Respiratory failure. FINDINGS: A single view of the chest shows a normal-size cardiomediastinal silhouette. The lines and tubes are unchanged in position. There is a slightly improving infiltrate in the left lower lobe of the lungs . Degenerative changes are seen in the spine. IMPRESSION: Improving left lower lobe infiltrate. POS: [facility]
[2017-08-30] MEDS: Acetaminophen 650 MG/20.3 ML UDCUP PO PRN (11:12)
--- NOTE | 2017-08-30 11:13 | PDOC.PN ---
- Subjective Encounter Start Date: 08/30/17 Encounter Start Time: 11:11 Subjective: remains intubated and sedated.no new events - Objective MAR Reviewed: Yes Vital Signs & Weight: Vital Signs (12 hours) Temp Pulse Resp BP 08/30/17 11:00 102.8 F H 08/30/17 10:45 44 H 08/30/17 10:24 142 H 152/76 H 08/30/17 10:00 33 H 08/30/17 08:45 100 08/30/17 08:00 100.8 F H 100 19 08/30/17 07:18 100 139/65 08/30/17 07:00 100.8 F H 08/30/17 06:00 10 L 08/30/17 04:00 100.2 F H 9 L 08/30/17 03:00 9 L 08/30/17 02:38 113 H 140/71 08/30/17 02:00 10 L 08/30/17 00:25 110 H 143/73 H 08/30/17 00:00 100.6 F H 8 L Weight Admit Weight 201 lb Weight 195 lb 12.328 oz Most Recent Monitor Data Heart Rate from ECG 148 NIBP 163/91 NIBP BP-Mean 99 Respiration from ECG 39 SpO2 100 I&O: 08/29/17 08/30/17 08/31/17 06:59 06:59 06:59 Intake Total 4793.4 5164 60 Output Total 5990 3660 1145 Balance -1196.6 1504 -1085 Result Diagrams: 08/30/17 03:50 08/30/17 08:49 Additional Labs: Accuchecks 08/30/17 08/30/17 08/29/17 08:43 03:57 23:22 POC Glucose 151 H 148 H 163 H 08/29/17 15:57 POC Glucose 152 H Microbiology 08/24/17 09:15 Bronchial Washing Respiratory Culture - Final 08/23/17 04:50 Nasopharynx - Nares Influenza Types A,B Direct EIA - Final 08/23/17 04:48 Venous blood - Right Hand Blood Culture - Final NO GROWTH IN 5 DAYS 08/23/17 04:48 Venous blood - Left Hand Blood Culture - Final NO GROWTH IN 5 DAYS 08/22/17 16:45 Pleural fluid Body Fluid Culture - Final 08/22/17 16:45 Pleural fluid Acid Fast Bacilli Smear - Final 08/20/17 05:29 Venous blood - Left Hand Blood Culture - Final NO GROWTH IN 5 DAYS 08/20/17 05:00 Venous blood - Left Arm Blood Culture - Final NO GROWTH IN 5 DAYS Laboratory Tests 08/20/17 08/22/17 08/22/17 10:55 05:13 21:02 WBC 20.4 H INR 2.1 3.8 BUN Creatinine 08/23/17 08/23/17 08/23/17 04:52 04:52 13:17 WBC INR 6.9 H* BUN Creatinine 0.92 1.16 08/23/17 08/24/17 08/24/17 13:17 03:24 03:24 WBC 13.7 H INR 5.1 H* BUN Creatinine 1.89 H 08/25/17 08/25/17 08/26/17 03:34 03:35 04:10 WBC INR 2.1 1.5 BUN Creatinine 1.57 H 08/26/17 08/26/17 08/27/17 04:10 04:10 03:30 WBC 14.9 H INR 1.4 BUN 89 H Creatinine 1.57 H 08/27/17 08/27/17 08/28/17 03:30 03:30 04:00 WBC 18.3 H INR 1.3 BUN 100 H Creatinine 1.54 H 08/28/17 08/28/17 08/29/17 04:00 04:00 03:30 WBC 22.2 H INR 1.2 BUN 91 H Creatinine 1.22 08/29/17 08/29/17 08/30/17 03:30 03:30 03:50 WBC 25.1 H INR 1.2 BUN 72 H Creatinine 0.95 08/30/17 08/30/17 03:50 03:50 WBC 28.8 H INR BUN 60 H Creatinine 0.91 Laboratory Tests 08/29/17 08/30/17 08/30/17 03:30 03:50 08:49 Potassium 4.9 5.6 H 6.1 H Radiology Reviewed by me: Yes (CXRT-improving left LL infiltrates) Phys Exam - Physical Examination Constitutional: NAD opens eyes but not focusing.coughing & biting tube HEENT: PERRLA, moist MMs, sclera anicteric, oral pharynx no lesions ETT.OGT Neck: no JVD Respiratory: no wheezing, no rales, no rhonchi, clear to auscultation bilateral Cardiovascular: no significant murmur, irregular Gastrointestinal: soft, non-tender, no distention, positive bowel sounds Musculoskeletal: no edema, pulses present Neurological: moves all 4 limbs Deviation from normal: sedated Dx/Plan (1) Hyperkalemia Code(s): E87.5 - HYPERKALEMIA Status: Acute (2) Acute respiratory failure with hypoxia Code(s): J96.01 - ACUTE RESPIRATORY FAILURE WITH HYPOXIA Status: Acute Comment: Pulmonary managing.vent weaning as tolerated (3) Bilateral pulmonary embolism Code(s): I26.99 - OTHER PULMONARY EMBOLISM WITHOUT ACUTE COR PULMONALE Status : Acute Comment: INR improved.Continue Lovenox dose based w coumadin till INR therapeutic (4) Pneumonia Code(s): J18.9 - PNEUMONIA, UNSPECIFIED ORGANISM Status: Acute Qualifiers: Pneumonia type: aspiration pneumonia Aspiration pneumonia type: due to vomit Laterality: bilateral Lung location: lower lobe of lung Qualified Code(s): J69.0 - Pneumonitis due to inhalation of food and vomit Comment: Pt had aspiration following vomiitng, suction as needed.Pt is on IV antibitoics , improved aeration left lung. continue same (5) Atrial fibrillation with RVR Code(s): I48.91 - UNSPECIFIED ATRIAL FIBRILLATION Status: Acute Comment: Stbale Rate controlled.Digoxin and now cardiazem drip per cardiology (6) Hypertension Code(s): I10 - ESSENTIAL (PRIMARY) HYPERTENSION Status: Acute (7) Pleural effusion, left Code(s): J90 - PLEURAL EFFUSION, NOT ELSEWHERE CLASSIFIED Status: Acute Comment: Improving, following pulmonary recomedation, will repeat chest xray daily.S/P thoracentesis.Fluid Cx negative so far (8) Warfarin-induced coagulopathy Code(s): D68.9 - COAGULATION DEFECT, UNSPECIFIED; T45.515A - ADVERSE EFFECT OF ANTICOAGULANTS, INITIAL ENCOUNTER Status: Acute Comment: Resolved - Plan mancini catheter, continue antibiotics, respiratory therapy, incentive spirometry , DVT proph w/SCDs Vent support w ith IV ABx.WBC still high.coverage expanded 08/29.Cx -ve -: will give insulin +dextrose for hyperkalemia.recheck.Renal fx has improved -: Cont Digoxin w cardiazem drip.cardiology fpollowing.still fast HR -: cont gentle diuresis. -: tube feeds. * Guarded prognosis Review of Systems - Review of Systems Other: can not be obtained due to sedation and intubation - Medications/Allergies Allergies/Adverse Reactions: Allergies Allergy/AdvReac Type Severity Reaction Status Date / Time No Known Drug Allergies Allergy Verified 08/20/17 10:46 Medications: Current Medications Acetaminophen (Tylenol Elixir) 650 mg PO Q6H PRN PRN Reason: Fever > 101 or Mild Pain Last Admin: 08/29/17 13:02 Dose: 650 mg Albuterol Sulfate (Ventolin) 2.5 mg NEB Q2H PRN PRN Reason: Wheezing Albuterol/Ipratropium (Duoneb) 3 ml NEB [id number] DIAN Last Admin: 08/30/17 07:18 Dose: 3 ml Lipase/Protease/[place]ylase ([place] [id number]) 1 cap FS .PER PROTOCOL PRN PRN Reason: TUBE OCCLUSION PROTOCOL Benzonatate (Tessalon) 100 mg PO Q4H PRN PRN Reason: Cough Last Admin: 08/23/17 00:11 Dose: 100 mg Bisacodyl (Dulcolax) 10 mg PO DAILYPRN PRN PRN Reason: Constipation Last Admin: 08/28/17 13:46 Dose: 10 mg Clonidine (Catapres) 0.1 mg PO Q4H PRN PRN Reason: Systolic BP > 170 Digoxin (Lanoxin) 0.125 mg SLOW IVP DAILY DIAN Last Admin: 08/30/17 08:45 Dose: 0.125 mg Enoxaparin Sodium (Lovenox) 100 mg SC 0900 DIAN Last Admin: 08/30/17 08:45 Dose: 100 mg Guaifenesin (Robitussin Sf) 200 mg PO Q4H PRN PRN Reason: Cough Last Admin: 08/22/17 18:07 Dose: 200 mg Hydralazine HCl (Apresoline) 10 mg SLOW IVP Q4H PRN PRN Reason: Systolic BP > 180 Fentanyl Citrate 2,000 mcg/ (Sodium Chloride) 100 mls @ 0 mls/hr IV INF DIAN; Per Protocol PRN Reason: Protocol Stop: 09/22/17 03:32 Last Admin: 08/30/17 05:28 Dose: 100 mls Fentanyl Citrate (Fentanyl Bolus) 250 mls @ 0 mls/hr IVPB PRN PRN; As Directed PRN Reason: Breakthrough pain Stop: 09/22/17 03:32 Last Admin: 08/25/17 08:47 Dose: 2.5 mls Levofloxacin 750 mg/ Device 150 mls @ 100 mls/hr IVPB Q2D@0600 [facility] [place] Last Admin: 08/29/17 05:18 Dose: 150 mls Diltiazem HCl 125 mg/Miscellaneous Medication 1 each/ Sodium Chloride 125 mls @ 15 mls/hr IVPB INF DIAN PRN Reason: Protocol Last Admin: 08/30/17 06:32 Dose: 125 mls Sodium Chloride (1/2 Normal Saline) 1,000 mls @ 50 mls/hr IV .Q20H [facility] [place] Last Admin: 08/30/17 08:45 Dose: 1,000 mls Piperacillin Sod/Tazobactam (Sod 2.25 gm/ Sodium Chloride) 100 mls @ 200 mls/ hr IVPB Q8HR [facility] [place] Last Admin: 08/30/17 05:51 Dose: 100 mls Lorazepam (Ativan) 2 mg SLOW IVP Q2H PRN PRN Reason: Anxiety to achieve Pandey 2-3 Stop: 09/22/17 03:32 Last Admin: 08/30/17 01:51 Dose: 2 mg Methylprednisolone Sodium Succinate (Solu-Medrol) 20 mg IVP Q6HR [facility] [place] Last Admin: 08/30/17 05:49 Dose: 20 mg Metoclopramide HCl (Reglan) 20 mg IVP Q8HR [facility] [place] Last Admin: 08/30/17 05:50 Dose: 20 mg Miscellaneous Medication (Pharmacy To Dose) 1 each PO DAILY PRN PRN Reason: DOSING Stop: 09/25/17 15:37 Miscellaneous Medication (Pharmacy To Dose) 1 each IVPB PRN PRN PRN Reason: Pharmacy to dose Morphine Sulfate (Morphine) 2 mg SLOW IVP Q2H PRN PRN Reason: Breakthrough pain Stop: 09/22/17 03:32 Nitroglycerin (Nitrostat) 0.4 mg SL Q5MIN PRN PRN Reason: Chest Pain Pantoprazole Sodium (Protonix) 40 mg PER TUBE Q12HR [facility] [place] Last Admin: 08/30/17 08:46 Dose: 40 mg Propofol (Diprivan) 1,000 mg IV INF PRN; Protocol PRN Reason: TO ACHIEVE PANDEY SCORE 2-3 Stop: 09/22/17 03:32 Last Admin: 08/30/17 08:45 Dose: 1,000 mg Sodium Bicarbonate (Bicarbonate, Sodium) 650 mg PER TUBE .PER PROTOCOL PRN PRN Reason: ENTERAL TUBE OCCLUSION Sodium Chloride (Flush - Normal Saline) 10 ml IVF PRN PRN PRN Reason: Saline Flush Last Admin: 08/30/17 08:47 Dose: 10 ml Sodium Polystyrene Sulfonate (Kayexelate Oral Susp 15 Gm/60 Ml) 30 gm PO 1100 DIAN Stop: 08/30/17 13:00
[2017-08-30 17:39] LABS: Potassium 5.6 mmol/L (3.5-5.1)
--- NOTE | 2017-08-30 18:28 | PDOC.CTH ---
Cardiology Progress Note - Subjective Remains intubated. - Objective Vital Signs Temp Pulse Resp BP 08/30/17 18:00 8 L 08/30/17 16:00 12 08/30/17 15:10 90 157/95 H 08/30/17 15:00 98.6 F 08/30/17 14:00 11 L 08/30/17 13:12 94 126/67 08/30/17 13:00 99 F 08/30/17 12:00 18 08/30/17 11:00 102.8 F H 08/30/17 10:45 44 H 08/30/17 10:24 142 H 152/76 H 08/30/17 10:00 33 H 08/30/17 08:45 100 08/30/17 08:00 100.8 F H 100 19 08/30/17 07:18 100 139/65 08/30/17 07:00 100.8 F H Admit Weight 201 lb Weight 195 lb 12.328 oz 08/29/17 08/30/17 08/31/17 06:59 06:59 06:59 Intake Total 4793.4 5164 1515 Output Total 5990 3660 2050 Balance -1196.6 1504 -535 - Physical Examination General/Neuro: other: (Intubated, ) Neck: no JVD present Lungs: unlabored respirations Heart: other: (Irregular) Abdomen: NT/ND Extremities: other: (no edema.) - Telemetry Telemetry Rhythm: Afib HR 80's - Labs Result Diagrams: 08/30/17 03:50 08/30/17 17:22 Troponin/CKMB CK-MB (CK-2) 5.4 ng/mL (0-6.6) 08/22/17 21:02 Troponin I Less than 0.010 ng/mL (< 0.028) 08/22/17 21:02 - Assessment/Plan 1. Chronic afib, rate controlled. 2. LLL pneumonia 3. Acute respiratory insufficiency. 4. Bilateral pulmonary embolism. PLAN: - Continue supportive care. - Continue Abx per primary team. - Digoxin and diltiazem. - Continue IV lasix. - Patient goes into RVR when agitated when sedated he is better rate controlled.
--- NOTE | 2017-08-30 20:01 | PRG ---
DATE OF SERVICE: 08/30/2017 SUBJECTIVE: Mr. Marie remains mechanically ventilated. He was placed back on as he was having long apneic spells lasting 6 to 8 seconds at times. OBJECTIVE: VITAL SIGNS: Blood pressure 134/80, heart rate 85, respiratory rate 16. LUNGS: Remarkable for rhonchi bilaterally. HEART: Regular rhythm. ABDOMEN: Soft. LABORATORY DATA: White count is 28.8, hemoglobin 9.6, platelets 398. Sodium 144, potassium 5.6, chloride 109, bicarbonate 28, BUN 60, creatinine 0.01. A 30 grams of Sherrie xalate was ordered earlier by me. PH of 7.41, CO2 of 48, pO2 of 97 on blood gas. Potassium is only 5. Chest radiograph was reviewed by me, he has an infiltrate in his left base. There is surprisingly a little better aeration of his left base. Intake and output is positive 1504. IMPRESSION: 1. Respiratory failure with hypoxemia. 2. Pneumonia. 3. Pulmonary embolism. 4. Atrial fibrillation, this is chronic. 5. History of hypertension. 6. History of a lipid disorder. 7. One pack per day smoking prior to admission. PLAN: Continue slow weaning attempts. Continue supportive care. Continue antimicrobial therapy and monitoring lab and his radiograph. Like Dr. Forman, I am concerned that his white count is still elevated, but he only had 6% bands on his peripheral smear, so we will continue with current course. Critical care time was 30 minutes.
[2017-08-30 20:30] LABS: Vancomycin, Trough 15.6 ug/mL
[2017-08-31] MEDS: fentaNYL Citrate/PF 2,000 MCG in Sodium Chloride 0.9% 60 ML IV SCH (01:34)
[2017-08-31] MEDS: Propofol 1,000 MG/100 ML VIAL IV PRN ×8 (02:43→23:14)
[2017-08-31 04:47] LABS: INR-International Normal Ratio 1.2; Prothrombin Time 15.3 SEC (12.0-14.7)
[2017-08-31 05:02] LABS: Anion Gap 11 mmol/L (10-20); BUN (Urea Nitrogen) 52 mg/dL (8.4-25.7); Calc. Creatinine Clearance 0 mL/min (70-130); Calcium 8.5 mg/dL (7.8-10.44); Carbon Dioxide 32 mmol/L (22-29); Chloride 108 mmol/L (98-107); Estimated GFR-MDRD Greater than 90; Glucose 162 mg/dL (70-105); Potassium 4.4 mmol/L (3.5-5.1); Sodium 147 mmol/L (136-145)
[2017-08-31] MEDS: Lorazepam 2 MG/ML VIAL SLOW IVP PRN ×4 (05:04→20:35)
[2017-08-31] MEDS: Piperacillin/Tazobactam 2.25 GM in Sodium Chloride 0.9% 100 ML IVPB SCH ×3 (05:05→23:09)
[2017-08-31] MEDS: Metoclopramide HCl 10 MG/2 ML VIAL IVP SCH ×3 (05:06→20:39)
[2017-08-31 05:14] LABS: Band 1 % (5-11); Hemoglobin 9.8 g/dL (14.0-18.0); Lymphocytes 3 % (21-51); MDiff Complete? YES; Mean Corpuscular HGB CONC 31.5 g/dL (32.0-36.0); Mean Corpuscular Hemoglobin 29.7 pg (27.0-31.0); Mean Corpuscular Volume 94.4 fl (80.0-94.0); Mean Platelet Volume 7.6 fL (7.4-10.4); Monocytes 1 % (0-10); Neutrophil 95 % (42-75); Platelet Count 371 thou/uL (130-400); RBC Distribution Width 12.6 % (11.5-14.5); Red Blood Cell (RBC) Count 3.31 mill/uL (4.70-6.10); White Blood Cell (WBC) Count 22.8 thou/uL (4.8-10.8)
[2017-08-31] MEDS: Sodium Chloride 0.45% 1,000 ML IV SCH (06:06)
[2017-08-31 06:56] LABS: Actual Bicarbonate (HCO3a) 31.5 mEq/L (22-26); Base Excess (BEa) 5.6 mEq/L (0 (+/-) 2.5); CO2 Tension 53.1 mmHg (35.0-45.0); Calcium, Ionized 1.2 mmol/L (1.12-1.30); Hematocrit-ABG 30.9 % (42.0-52.0); Hemoglobin (Hb) 10.1 g/dL (14.0-18.0); O2 Tension (PaO2) 110.7 mmHg (80.0-100.0); pH, Arterial 7.39 (7.35-7.45)
[2017-08-31 06:57] LABS: ALV-art Gradient 106.125 (0-20); Puncture Site RRA
[2017-08-31] MEDS: Diltiazem HCl 125 MG, Admixture Fee 1 EACH in Sodium Chloride 0.9% 100 ML IVPB SCH ×2 (09:09→17:14)
[2017-08-31] MEDS: Pantoprazole 40 MG GRANULES PACKET PER TUBE SCH ×2 (09:11→20:39)
[2017-08-31] MEDS: Digoxin 0.5 MG/2 ML AMP SLOW IVP SCH (09:11)
[2017-08-31] MEDS: Enoxaparin Sodium 100 MG/ML SYRINGE SC SCH (09:11)
--- NOTE | 2017-08-31 13:04 | PDOC.PN ---
- Subjective Encounter Start Date: 08/31/17 Encounter Start Time: 13:03 Patient seen at bedside. No overnight events, afebrile. - Objective MAR Reviewed: Yes Vital Signs & Weight: Vital Signs (12 hours) Temp Pulse Resp BP 08/31/17 12:22 80 132/75 08/31/17 11:00 99.1 F 08/31/17 10:50 93 151/71 H 08/31/17 10:00 12 08/31/17 09:11 78 08/31/17 08:00 98.9 F 78 11 L 08/31/17 07:23 78 128/77 08/31/17 07:00 98.9 F 08/31/17 06:00 13 08/31/17 04:00 98.9 F 10 L 08/31/17 02:50 72 08/31/17 02:00 13 Weight Admit Weight 201 lb Weight 3.129 oz Most Recent Monitor Data Heart Rate from ECG 80 NIBP 132/75 NIBP BP-Mean 97 Respiration from ECG 41 SpO2 100 I&O: 08/30/17 08/31/17 09/01/17 06:59 06:59 06:59 Intake Total 5164 3897.4 60 Output Total 3660 3375 625 Balance 1504 522.4 -565 Result Diagrams: 08/31/17 04:25 08/31/17 04:25 Additional Labs: Accuchecks 08/31/17 08/31/17 08/30/17 09:15 03:24 22:25 POC Glucose 159 H 162 H 205 H 08/30/17 15:11 POC Glucose 177 H Phys Exam - Physical Examination Constitutional: NAD HEENT: moist MMs ET tube present Neck: no JVD mild wheezing and rales bilaterally Cardiovascular: RRR Gastrointestinal: soft Musculoskeletal: pulses present Skin: normal turgor Dx/Plan (1) Acute respiratory failure with hypoxia Code(s): J96.01 - ACUTE RESPIRATORY FAILURE WITH HYPOXIA Status: Acute Comment: Pulmonary managing.vent weaning as tolerated (2) Atrial fibrillation with RVR Code(s): I48.91 - UNSPECIFIED ATRIAL FIBRILLATION Status: Acute Comment: Stbale Rate controlled.Digoxin and now cardiazem drip per cardiology (3) Bilateral pulmonary embolism Code(s): I26.99 - OTHER PULMONARY EMBOLISM WITHOUT ACUTE COR PULMONALE Status : Acute Comment: INR improved.Continue Lovenox dose based w coumadin till INR therapeutic (4) Hypertension Code(s): I10 - ESSENTIAL (PRIMARY) HYPERTENSION Status: Acute (5) Pneumonia Code(s): J18.9 - PNEUMONIA, UNSPECIFIED ORGANISM Status: Acute Qualifiers: Pneumonia type: aspiration pneumonia Aspiration pneumonia type: due to vomit Laterality: bilateral Lung location: lower lobe of lung Qualified Code(s): J69.0 - Pneumonitis due to inhalation of food and vomit Comment: Pt had aspiration following vomiitng, suction as needed.Pt is on IV antibitoics , improved aeration left lung. continue same - Plan cont current plan of care, mancini catheter, continue antibiotics, DVT proph w/ lovenox, DVT proph w/SCDs * Continue ventilator management per PCCM. * Continue Cardizem (15mg/hr) * Zosyn and Levaquin. If WBC doesn't improved, may require further MRSA coverage (Vancomycin) * Lovenox for bilateral PE * Supportive care
--- NOTE | 2017-08-31 16:17 | PRG ---
DATE OF SERVICE: 08/31/2017 SUBJECTIVE: Mr. Marie is clinically unchanged. OBJECTIVE: VITAL SIGNS: Heart rate 80, blood pressure 132/75, respiratory rate is 18, minimum volume was about 8 liters per minute. LUNGS: Remarkable for coarse equal breath sounds. HEART: Regular rhythm. ABDOMEN: Soft. LABORATORY DATA: White count 22.8, down from 28.8; hemoglobin 9.8; platelets 371; he only has 1% ban ds on his peripheral smear. Sodium 147, potassium 4.4, chloride 108, bicarb 32, BUN 15, creatinine 0.79. A pH 7.39, CO2 of 53, pO2 of 110 on a rate of 8, FiO2 40% tidal volume 695. IMPRESSION: 1. Respiratory failure (acute hypoxic). 2. Pneumonia. 3. Pulmonary embolism. 4. Atrial fibrillation. 5. Hypertension. 6. Lipid disorder. 7. Tobacco use until admission. PLAN: We will decrease his ventilator a little more today. We had extubate him today. He will need to be monitored closely once we reach while extubate him.
--- NOTE | 2017-08-31 18:09 | PDOC.CTH ---
Cardiology Progress Note - Subjective Remains intubated. - Objective Vital Signs Temp Pulse Resp BP 08/31/17 17:00 99.9 F H 08/31/17 16:00 30 H 08/31/17 15:00 100.1 F H 08/31/17 14:43 98 147/83 H 08/31/17 14:00 25 H 08/31/17 12:22 80 132/75 08/31/17 11:00 99.1 F 08/31/17 10:50 93 151/71 H 08/31/17 10:00 12 08/31/17 09:11 78 08/31/17 08:00 98.9 F 78 11 L 08/31/17 07:23 78 128/77 08/31/17 07:00 98.9 F Admit Weight 201 lb Weight 3.129 oz 08/30/17 08/31/17 09/01/17 06:59 06:59 06:59 Intake Total 5164 3897.4 1989 Output Total 3660 3375 1115 Balance 1504 522.4 874 - Physical Examination General/Neuro: other: (intubated.) Neck: no JVD present Lungs: CTA, unlabored respirations Heart: other: (Irreg) Abdomen: NT/ND Extremities: other: (no edema) - Telemetry Telemetry Rhythm: Afib RH 90-100 - Labs Result Diagrams: 08/31/17 04:25 08/31/17 04:25 Troponin/CKMB CK-MB (CK-2) 5.4 ng/mL (0-6.6) 08/22/17 21:02 Troponin I Less than 0.010 ng/mL (< 0.028) 08/22/17 21:02 - Assessment/Plan 1. Chronic afib, rate controlled at this time. 2. LLL pneumonia 3. Acute respiratory insufficiency. 4. Bilateral pulmonary embolism. PLAN: - Continue supportive care. - Continue Abx per primary team. - Diltiazem gtt. - Patient goes into RVR when agitated when sedated he is better rate controlled. Currently well sedated and he is rate controlled.
[2017-08-31] MEDS ORDERED: Fentanyl 20 MCG/ML 250 ML IVPB SCH (21:00)
[2017-09-01] MEDS: Diltiazem HCl 125 MG, Admixture Fee 1 EACH in Sodium Chloride 0.9% 100 ML IVPB SCH ×3 (02:28→19:52)
[2017-09-01] MEDS: Propofol 1,000 MG/100 ML VIAL IV PRN ×2 (02:28→05:31)
[2017-09-01] MEDS: Metoclopramide HCl 10 MG/2 ML VIAL IVP SCH ×3 (05:17→20:51)
[2017-09-01] MEDS: Piperacillin/Tazobactam 2.25 GM in Sodium Chloride 0.9% 100 ML IVPB SCH ×3 (05:30→21:13)
[2017-09-01] MEDS: Sodium Chloride 0.45% 1,000 ML IV SCH (05:31)
[2017-09-01 05:54] LABS: INR-International Normal Ratio 1.1; Prothrombin Time 14.3 SEC (12.0-14.7)
[2017-09-01 06:06] LABS: Anion Gap 13 mmol/L (10-20); BUN (Urea Nitrogen) 45 mg/dL (8.4-25.7); Calc. Creatinine Clearance 136 mL/min (70-130); Calcium 8.5 mg/dL (7.8-10.44); Carbon Dioxide 27 mmol/L (22-29); Chloride 109 mmol/L (98-107); Estimated GFR-MDRD Greater than 90; Glucose 137 mg/dL (70-105); Potassium 4.1 mmol/L (3.5-5.1); Sodium 145 mmol/L (136-145)
[2017-09-01 06:28] LABS: Hemoglobin 10.2 g/dL (14.0-18.0); Mean Corpuscular HGB CONC 32.3 g/dL (32.0-36.0); Mean Corpuscular Hemoglobin 30.4 pg (27.0-31.0); Mean Platelet Volume 7.5 fL (7.4-10.4); Platelet Count 353 thou/uL (130-400); RBC Distribution Width 12.7 % (11.5-14.5); Red Blood Cell (RBC) Count 3.36 mill/uL (4.70-6.10)
[2017-09-01 06:57] LABS: Band 4 % (5-11); Lymphocytes 5 % (21-51); MDiff Complete? YES; Monocytes 4 % (0-10); Neutrophil 87 % (42-75)
--- NOTE | 2017-09-01 07:46 | PDOC.PULCC ---
CCU Progress Note: Subj/Obj - Subjective Date: 09/01/17 Time: 07:45 Narrative: Intubated on vent. Follows some commands - Objective Allergies/Adverse Reactions: Allergies Allergy/AdvReac Type Severity Reaction Status Date / Time No Known Drug Allergies Allergy Verified 08/20/17 10:46 Medications: Current Medications Acetaminophen (Tylenol Elixir) 650 mg PO Q6H PRN PRN Reason: Fever > 101 or Mild Pain Last Admin: 08/30/17 11:12 Dose: 650 mg Albuterol Sulfate (Ventolin) 2.5 mg NEB Q2H PRN PRN Reason: Wheezing Albuterol/Ipratropium (Duoneb) 3 ml NEB [id number] [facility] Last Admin: 09/01/17 07:11 Dose: 3 ml Lipase/Protease/Amylase ([place] [id number]) 1 cap FS .PER PROTOCOL PRN PRN Reason: TUBE OCCLUSION PROTOCOL Benzonatate (Tessalon) 100 mg PO Q4H PRN PRN Reason: Cough Last Admin: 08/23/17 00:11 Dose: 100 mg Bisacodyl (Dulcolax) 10 mg PO DAILYPRN PRN PRN Reason: Constipation Last Admin: 08/28/17 13:46 Dose: 10 mg Clonidine (Catapres) 0.1 mg PO Q4H PRN PRN Reason: Systolic BP > 170 Digoxin (Lanoxin) 0.125 mg SLOW IVP DAILY [facility] Last Admin: 08/31/17 09:11 Dose: 0.125 mg Enoxaparin Sodium (Lovenox) 100 mg SC 0900 [facility] Last Admin: 08/31/17 09:11 Dose: 100 mg Guaifenesin (Robitussin Sf) 200 mg PO Q4H PRN PRN Reason: Cough Last Admin: 08/22/17 18:07 Dose: 200 mg Hydralazine HCl (Apresoline) 10 mg SLOW IVP Q4H PRN PRN Reason: Systolic BP > 180 Fentanyl Citrate (Fentanyl Bolus) 250 mls @ 0 mls/hr IVPB PRN PRN; As Directed PRN Reason: Breakthrough pain Stop: 09/22/17 03:32 Last Admin: 08/25/17 08:47 Dose: 2.5 mls Levofloxacin 750 mg/ Device 150 mls @ 100 mls/hr IVPB Q2D@0600 [facility] Last Admin: 08/31/17 05:06 Dose: 150 mls Diltiazem HCl 125 mg/Miscellaneous Medication 1 each/ Sodium Chloride 125 mls @ 15 mls/hr IVPB INF DIAN PRN Reason: Protocol Last Admin: 09/01/17 02:28 Dose: 125 mls Sodium Chloride (1/2 Normal Saline) 1,000 mls @ 50 mls/hr IV .Q20H [facility] Last Admin: 09/01/17 05:31 Dose: 1,000 mls Piperacillin Sod/Tazobactam (Sod 2.25 gm/ Sodium Chloride) 100 mls @ 200 mls/ hr IVPB Q8HR [facility] Last Admin: 09/01/17 05:30 Dose: 100 mls Fentanyl (Fentanyl Cadd) 250 mls @ 0 mls/hr IVPB INF [facility]; Titrate PRN Reason: Protocol Stop: 09/30/17 21:00 Last Admin: 08/31/17 21:32 Dose: 250 mls Lorazepam (Ativan) 2 mg SLOW IVP Q2H PRN PRN Reason: Anxiety to achieve Pandey 2-3 Stop: 09/22/17 03:32 Last Admin: 08/31/17 20:35 Dose: 2 mg Methylprednisolone Sodium Succinate (Solu-Medrol) 20 mg IVP Q12HR [facility] Metoclopramide HCl (Reglan) 20 mg IVP Q8HR [facility] Last Admin: 09/01/17 05:17 Dose: Not Given Morphine Sulfate (Morphine) 2 mg SLOW IVP Q2H PRN PRN Reason: Breakthrough pain Stop: 09/22/17 03:32 Nitroglycerin (Nitrostat) 0.4 mg SL Q5MIN PRN PRN Reason: Chest Pain Pantoprazole Sodium (Protonix) 40 mg PER TUBE Q12HR [facility] Last Admin: 08/31/17 20:39 Dose: 40 mg Propofol (Diprivan) 1,000 mg IV INF PRN; Protocol PRN Reason: TO ACHIEVE PANDEY SCORE 2-3 Stop: 09/22/17 03:32 Last Admin: 09/01/17 05:31 Dose: 1,000 mg Sodium Bicarbonate (Bicarbonate, Sodium) 650 mg PER TUBE .PER PROTOCOL PRN PRN Reason: ENTERAL TUBE OCCLUSION Sodium Chloride (Flush - Normal Saline) 10 ml IVF PRN PRN PRN Reason: Saline Flush Last Admin: 08/31/17 09:11 Dose: 10 ml Warfarin Sodium (Coumadin) 5 mg PO 1700 [facility] MAR Reviewed: Yes Vital Signs and I&O: Vital Signs Temp 99.4 F 09/01/17 04:00 Pulse 87 09/01/17 07:13 Resp 14 09/01/17 07:11 BP 139/80 09/01/17 07:13 Pulse Ox 99 09/01/17 07:11 Intake & Output 08/31/17 09/01/17 09/01/17 18:59 06:59 18:59 Intake Total 2049.8 2615 Output Total 1215 1790 Balance 834.8 825 Weight 195 lb 5.273 oz Intake: Intake, IV Amount 1237.8 1292 Diltiazem HCl 125 mg 164 188 Admixture Fee 1 each In Sodium Chloride 0.9% 100 ml @ 15 mls/hr IVPB INF [facility] Rx#:[id number] Piperacillin/Tazobactam 2 100 .25 gm In Sodium Chloride 0.9% 100 ml @ 200 mls/hr IVPB Q8HR [facility] Rx#: [id number] Propofol 1000 mg (See 382.8 377 Protocol) IV INF PRN Rx#: [id number] Sodium Chloride 0.45% 1, 691 627 000 ml @ 50 mls/hr IV . Q20H [facility] Rx#:[id number] Oral Supplement 60 Tube Feeding 232 298 Tube Irrigant 520 1025 Output: Output, [place] 1215 1790 Other: Voiding Method Indwelling Catheter Indwelling Catheter # Bowel Movements 1 Vent Setting: Last recorded order Positive End Expiratory 5 Pressure PEEP High (BiLevel) 22 PEEP Low (BiLevel) 10 % Fraction of Inspired Oxygen 40 (FIO2) Spontaneous Breathing Test: done CCU Progress Note: Exam - Physical Exam Constitutional: NAD HEENT: PERRLA, moist MMs, sclera anicteric Neck: no nodes, no JVD Cardiovascular: RRR Focused Respiratory Location: rales: Left Gastrointestinal: soft, non-tender Musculoskeletal: edema present Neurological: non-focal, moves all 4 limbs Lymphatic: no nodes Deviation from normal: very agitated off sedation Skin: no rash CCU Progress Note: Data - Labs Result Diagrams: 09/01/17 05:20 09/01/17 05:25 Lab results: Laboratory Results 08/30/17 08/30/17 08/30/17 08:43 08:49 15:11 WBC RBC Hgb Hct MCV MCH MCHC RDW Plt Count MPV Neutrophils % (Manual) Band Neuts % (Manual) Lymphocytes % (Manual) Monocytes % (Manual) Neutrophils # Lymphocytes # PT INR Specimen Type Puncture Site Bicarbonate Actual ABG pH ABG pCO2 ABG pO2 ABG O2 Sat Calc/Annabel ABG O2 Content ABG Base Excess ABG Hematocrit ABG Hemoglobin ABG Oxyhemoglobin ABG Carboxyhemoglobin ABG Methemoglobin Reyes Test A-a O2 Gradient Ionized Calcium Mode of Support Mechanical Rate Inspired O2 Inspiratory Time Tidal Volume Peak Inspir Pressure Pressure Support PEEP or CPAP Sodium Potassium 6.1 H Chloride Carbon Dioxide Anion Gap BUN Creatinine Estimated GFR (MDRD) Glucose POC Glucose 151 H 177 H Calcium Vancomycin Trough 08/30/17 08/30/17 08/30/17 17:22 20:01 22:25 WBC RBC Hgb Hct MCV MCH MCHC RDW Plt Count MPV Neutrophils % (Manual) Band Neuts % (Manual) Lymphocytes % (Manual) Monocytes % (Manual) Neutrophils # Lymphocytes # PT INR Specimen Type Puncture Site Bicarbonate Actual ABG pH ABG pCO2 ABG pO2 ABG O2 Sat Calc/Annabel ABG O2 Content ABG Base Excess ABG Hematocrit ABG Hemoglobin ABG Oxyhemoglobin ABG Carboxyhemoglobin ABG Methemoglobin Reyes Test A-a O2 Gradient Ionized Calcium Mode of Support Mechanical Rate Inspired O2 Inspiratory Time Tidal Volume Peak Inspir Pressure Pressure Support PEEP or CPAP Sodium Potassium 5.6 H Chloride Carbon Dioxide Anion Gap BUN Creatinine Estimated GFR (MDRD) Glucose POC Glucose 205 H Calcium Vancomycin Trough 15.6 08/31/17 08/31/17 08/31/17 03:24 04:25 04:25 WBC RBC Hgb Hct MCV MCH MCHC RDW Plt Count MPV Neutrophils % (Manual) Band Neuts % (Manual) Lymphocytes % (Manual) Monocytes % (Manual) Neutrophils # Lymphocytes # PT 15.3 H INR 1.2 Specimen Type Puncture Site Bicarbonate Actual ABG pH ABG pCO2 ABG pO2 ABG O2 Sat Calc/Annabel ABG O2 Content ABG Base Excess ABG Hematocrit ABG Hemoglobin ABG Oxyhemoglobin ABG Carboxyhemoglobin ABG Methemoglobin Reyes Test A-a O2 Gradient Ionized Calcium Mode of Support Mechanical Rate Inspired O2 Inspiratory Time Tidal Volume Peak Inspir Pressure Pressure Support PEEP or CPAP Sodium 147 H Potassium 4.4 Chloride 108 H Carbon Dioxide 32 H Anion Gap 11 BUN 52 H Creatinine 0.79 Estimated GFR (MDRD) Greater than 90 Glucose 162 H POC Glucose 162 H Calcium 8.5 Vancomycin Trough 08/31/17 08/31/17 08/31/17 04:25 06:35 09:15 WBC 22.8 H RBC 3.31 L Hgb 9.8 L Hct 31.2 L MCV 94.4 H MCH 29.7 MCHC 31.5 L RDW 12.6 Plt Count 371 MPV 7.6 Neutrophils % (Manual) 95 H Band Neuts % (Manual) 1 L Lymphocytes % (Manual) 3 L Monocytes % (Manual) 1 Neutrophils # Lymphocytes # PT INR Specimen Type ARTERIAL Puncture Site RRA Bicarbonate Actual 31.5 H ABG pH 7.39 ABG pCO2 53.1 H ABG pO2 110.7 H ABG O2 Sat Calc/Annabel 98.0 ABG O2 Content 13.8 L ABG Base Excess 5.6 H ABG Hematocrit 30.9 L ABG Hemoglobin 10.1 L ABG Oxyhemoglobin 95.9 ABG Carboxyhemoglobin 1.4 ABG Methemoglobin 0.7 Reyes Test POSITIVE A-a O2 Gradient 106.125 H Ionized Calcium 1.2 Mode of Support SIMV/PC Mechanical Rate 8 Inspired O2 40 Inspiratory Time 1.20 Tidal Volume 695 Peak Inspir Pressure 11 Pressure Support 10 PEEP or CPAP 5.0 Sodium 146 Potassium 4.1 Chloride 107 H Carbon Dioxide Anion Gap BUN Creatinine Estimated GFR (MDRD) Glucose POC Glucose 159 H Calcium Vancomycin Trough 08/31/17 08/31/17 09/01/17 15:38 22:18 04:29 WBC RBC Hgb Hct MCV MCH MCHC RDW Plt Count MPV Neutrophils % (Manual) Band Neuts % (Manual) Lymphocytes % (Manual) Monocytes % (Manual) Neutrophils # Lymphocytes # PT INR Specimen Type Puncture Site Bicarbonate Actual ABG pH ABG pCO2 ABG pO2 ABG O2 Sat Calc/Annabel ABG O2 Content ABG Base Excess ABG Hematocrit ABG Hemoglobin ABG Oxyhemoglobin ABG Carboxyhemoglobin ABG Methemoglobin Reyes Test A-a O2 Gradient Ionized Calcium Mode of Support Mechanical Rate Inspired O2 Inspiratory Time Tidal Volume Peak Inspir Pressure Pressure Support PEEP or CPAP Sodium Potassium Chloride Carbon Dioxide Anion Gap BUN Creatinine Estimated GFR (MDRD) Glucose POC Glucose 151 H 149 H 158 H Calcium Vancomycin Trough 09/01/17 09/01/17 09/01/17 05:20 05:25 05:25 WBC 24.0 H RBC 3.36 L Hgb 10.2 L Hct 31.6 L MCV 94.0 MCH 30.4 MCHC 32.3 RDW 12.7 Plt Count 353 MPV 7.5 Neutrophils % (Manual) 87 H Band Neuts % (Manual) 4 L Lymphocytes % (Manual) 5 L Monocytes % (Manual) 4 Neutrophils # Not Reportable Lymphocytes # Not Reportable PT 14.3 INR 1.1 Specimen Type Puncture Site Bicarbonate Actual ABG pH ABG pCO2 ABG pO2 ABG O2 Sat Calc/Annabel ABG O2 Content ABG Base Excess ABG Hematocrit ABG Hemoglobin ABG Oxyhemoglobin ABG Carboxyhemoglobin ABG Methemoglobin Reyes Test A-a O2 Gradient Ionized Calcium Mode of Support Mechanical Rate Inspired O2 Inspiratory Time Tidal Volume Peak Inspir Pressure Pressure Support PEEP or CPAP Sodium 145 Potassium 4.1 Chloride 109 H Carbon Dioxide 27 Anion Gap 13 BUN 45 H Creatinine 0.77 Estimated GFR (MDRD) Greater than 90 Glucose 137 H POC Glucose Calcium 8.5 Vancomycin Trough - ABG Interpretation ABG Results: ABG pH 7.39 (7.35-7.45) 08/31/17 06:35 ABG pCO2 53.1 mmHg (35.0-45.0) H 08/31/17 06:35 ABG O2 Sat Calc/Annabel 98.0 % (94.0-100.0) 08/31/17 06:35 ABG Base Excess 5.6 mEq/L (0 (+/-) 2.5) H 08/31/17 06:35 - Radiology Interpretation Chest x-ray Status: image reviewed by me (improved R, has LLL infiltrate) CCU Progress Note: A/P - Problems (1) Acute respiratory failure with hypoxia Current Visit: Yes Status: Acute Code(s): J96.01 - ACUTE RESPIRATORY FAILURE WITH HYPOXIA (2) Bilateral pulmonary embolism Current Visit: Yes Status: Acute Code(s): I26.99 - OTHER PULMONARY EMBOLISM WITHOUT ACUTE COR PULMONALE (3) Pneumonia Current Visit: Yes Status: Acute Code(s): J18.9 - PNEUMONIA, UNSPECIFIED ORGANISM Qualifiers: Pneumonia type: aspiration pneumonia Aspiration pneumonia type: due to vomit Laterality: bilateral Lung location: lower lobe of lung Qualified Code(s): J69.0 - Pneumonitis due to inhalation of food and vomit - Time Spent with Patient Time (minutes): 35 (cc time) - Plan Plan: Patient better. Will try SBT today and consider extubation Will restart warfarin, with goal INR 2.0-2.5 Lighten sedation
[2017-09-01] MEDS: Digoxin 0.5 MG/2 ML AMP SLOW IVP SCH (09:38)
[2017-09-01] MEDS: Pantoprazole 40 MG GRANULES PACKET PER TUBE SCH ×2 (09:47→20:50)
[2017-09-01] MEDS: Enoxaparin Sodium 100 MG/ML SYRINGE SC SCH (09:49)
[2017-09-01 09:58] LABS: Actual Bicarbonate (HCO3a) 29.8 mEq/L (22-26); Base Excess (BEa) 3.7 mEq/L (0 (+/-) 2.5); CO2 Tension 54.6 mmHg (35.0-45.0); Hemoglobin (Hb) 8.5 g/dL (14.0-18.0); O2 Tension (PaO2) 91.9 mmHg (80.0-100.0); pH, Arterial 7.36 (7.35-7.45)
[2017-09-01 09:59] LABS: Analyzer IN Cardio OR; Calcium, Ionized 1.2 mmol/L (1.12-1.30); Puncture Site LRA
--- NOTE | 2017-09-01 10:01 | PDOC.PN ---
- Subjective Encounter Start Date: 09/01/17 Encounter Start Time: 10:00 CC: Acute respiratory failure Sub: Pt got extubated this am - Objective Vital Signs & Weight: Vital Signs (12 hours) Temp Pulse Resp BP Pulse Ox 09/01/17 09:38 147 H 09/01/17 07:13 87 139/80 09/01/17 07:11 91 14 99 09/01/17 06:00 8 L 09/01/17 04:00 99.4 F 9 L 09/01/17 02:37 76 09/01/17 02:00 12 09/01/17 00:38 90 6 L 100 09/01/17 00:00 100.5 F H 10 L 08/31/17 22:56 113 H 08/31/17 22:00 12 Weight Admit Weight 201 lb Weight 195 lb 5.273 oz Most Recent Monitor Data Heart Rate from ECG 83 NIBP 127/72 NIBP BP-Mean 89 Respiration from ECG 7 SpO2 100 I&O: 08/31/17 09/01/17 09/02/17 06:59 06:59 06:59 Intake Total 3897.4 4664.8 Output Total 3375 3005 Balance 522.4 1659.8 Result Diagrams: 09/01/17 05:20 09/01/17 05:25 Additional Labs: Accuchecks 09/01/17 08/31/17 08/31/17 04:29 22:18 15:38 POC Glucose 158 H 149 H 151 H Phys Exam - Physical Examination Constitutional: NAD HEENT: moist MMs Neck: no JVD Respiratory: no rales positive rhonchi, positive crackles, no accessory muscle usage seen Cardiovascular: RRR no murmur, no rubs, no gallop Gastrointestinal: soft distended, nttp, no guarding Musculoskeletal: no edema Neurological: non-focal Psychiatric: normal affect Dx/Plan - Plan Pt is 57 yrs old male (1) Acute respiratory failure with hypoxia Code(s): J96.01 - ACUTE RESPIRATORY FAILURE WITH HYPOXIA Status: Acute Comment: Pulmonary managing.vent weaning as tolerated (2) Atrial fibrillation with RVR Code(s): I48.91 - UNSPECIFIED ATRIAL FIBRILLATION Status: Acute Comment: Stbale Rate controlled.Digoxin and now cardiazem drip per cardiology (3) Bilateral pulmonary embolism Code(s): I26.99 - OTHER PULMONARY EMBOLISM WITHOUT ACUTE COR PULMONALE Status : Acute Comment: INR improved.Continue Lovenox dose based w coumadin till INR therapeutic (4) Hypertension Code(s): I10 - ESSENTIAL (PRIMARY) HYPERTENSION Status: Acute (5) Pneumonia Code(s): J18.9 - PNEUMONIA, UNSPECIFIED ORGANISM Status: Acute Qualifiers: Pneumonia type: aspiration pneumonia Aspiration pneumonia type: due to vomit Laterality: bilateral Lung location: lower lobe of lung Qualified Code(s): J69.0 - Pneumonitis due to inhalation of food and vomit Comment: Pt had aspiration following vomiitng, suction as needed.Pt is on IV antibitoics , improved aeration left lung. continue same 6. R/O Cdiff - Plan cont current plan of care * s/p extubation, management per PCCM. Appreciate pulmonary input * Continue Cardizem (15mg/hr) and digoxin * Zosyn and Levaquin. If WBC doesn't improved, may require further MRSA coverage (Vancomycin) * Lovenox for bilateral PE, INR still subtherapeutic * Supportive care * Will check stool for CDIFF case d/w pt & RN
--- NOTE | 2017-09-01 10:20 | RAD ---
PORTABLE AP CHEST XRAY: DATE: 09/01/17. HISTORY: Pneumonia. Patient on a ventilator. COMPARISON: 08/30/17. FINDINGS: Endotracheal tube and nasogastric tube remain in position. Again noted are densely parenchymal opaci ty and interstitial densities at the left lung base and left mid lung zone again worrisome for pneumo justyna not essentially changed from prior exam. The right lung remains clear. Cardiac silhouette is ma gnified by projection. No other interval change. IMPRESSION: 1. Pneumonia at the left lung base not significantly changed from the prior study. 2. Lines and tubes stable in position. POS: [facility]
[2017-09-01] MEDS: Warfarin Sodium 5 MG TAB PO SCH (17:59)
[2017-09-02] MEDS: Sodium Chloride 0.45% 1,000 ML IV SCH (03:22)
[2017-09-02] MEDS: Diltiazem HCl 125 MG, Admixture Fee 1 EACH in Sodium Chloride 0.9% 100 ML IVPB SCH ×3 (04:09→21:50)
[2017-09-02 04:44] LABS: INR-International Normal Ratio 1.1; Prothrombin Time 14.8 SEC (12.0-14.7)
[2017-09-02 05:10] LABS: Anion Gap 11 mmol/L (10-20); BUN (Urea Nitrogen) 33 mg/dL (8.4-25.7); Calc. Creatinine Clearance 154 mL/min (70-130); Calcium 8.1 mg/dL (7.8-10.44); Carbon Dioxide 26 mmol/L (22-29); Chloride 107 mmol/L (98-107); Estimated GFR-MDRD Greater than 90; Glucose 117 mg/dL (70-105); Potassium 3.9 mmol/L (3.5-5.1); Sodium 140 mmol/L (136-145)
[2017-09-02 05:20] LABS: Hemoglobin 9.8 g/dL (14.0-18.0); Lymphocytes 3 % (21-51); MDiff Complete? YES; Mean Corpuscular HGB CONC 33.3 g/dL (32.0-36.0); Mean Corpuscular Hemoglobin 31.1 pg (27.0-31.0); Mean Corpuscular Volume 93.2 fl (80.0-94.0); Mean Platelet Volume 7.8 fL (7.4-10.4); Metamyelocyte 1 % (0-0); Monocytes 2 % (0-10); Neutrophil 94 % (42-75); Platelet Count 285 thou/uL (130-400); RBC Distribution Width 12.5 % (11.5-14.5); Red Blood Cell (RBC) Count 3.16 mill/uL (4.70-6.10); White Blood Cell (WBC) Count 19.1 thou/uL (4.8-10.8)
[2017-09-02] MEDS: Piperacillin/Tazobactam 2.25 GM in Sodium Chloride 0.9% 100 ML IVPB SCH (06:04)
[2017-09-02] MEDS: Metoclopramide HCl 10 MG/2 ML VIAL IVP SCH (06:04)
--- NOTE | 2017-09-02 07:46 | PRG ---
DATE OF SERVICE: 09/02/2017 The patient did well after extubation yesterday. He is still having some diarrhea and he is still in atrial fibrillation with a rapid ventricular response, being controlled on Cardizem drip. PHYSICAL EXAMINATION: VITAL SIGNS: Temperature is 98.9, pulse 88, blood pressure 157/96, 24-hour intake 3795, output 2532. HEENT: Sclera anicteric. Oropharynx clear. NECK: No JVD. LUNGS: Few crackles in the left base, otherwise clear. CARDIOVASCULAR: S1, S2 irregularly irregular. ABDOMEN: Soft, nontender. EXTREMITIES: No clubbing, cyanosis. He has trace edema. LABORATORY: C. diff toxin was negative. Sodium 140, potassium 3.9, chloride 107, CO2 26, BUN 33, cr eatinine 0.6, glucose 117, white blood cell count 19.1, hematocrit 29.4, platelet count 285. INR is 1.1. ASSESSMENT: 1. Acute respiratory failure requiring mechanical ventilation - now resolved. 2. Left lower lobe pneumonia, organism unidentified. 3. Bilateral pulmonary embolism. 4. Atrial fibrillation with rapid ventricular response. PLAN: 1. He will be moved to telemetry. 2. Initiate physical therapy. 3. Stop Reglan. 4. Continue care of atrial fibrillation per Cardiology. 5. Continue enoxaparin, warfarin for pulmonary emboli. Given the improvement in his renal function. I will increase his Lovenox dose. 6. Continue antibiotics.
--- NOTE | 2017-09-02 08:19 | RAD ---
AP CHEST: History: Ventilator dependent patient. Date: 09-02-17 Comparison: 09-01-17 FINDINGS: There has been interval extubation of the patient and removal of the NG tube. A left sided pleural effusion is seen. Areas of airspace opacity seen in the left lung. The right karen g is well aerated. IMPRESSION: 1. Pleural effusion and airspace opacities in the left lung. 2. Interval extubation of patient and removal of the NG tube. POS: [facility]
[2017-09-02] MEDS: Enoxaparin Sodium 80 MG/0.8 ML SYRINGE SC SCH ×2 (08:51→21:07)
[2017-09-02] MEDS: Digoxin 0.125 MG TAB PO SCH (08:52)
[2017-09-02] MEDS ORDERED: Pantoprazole 40 MG GRANULES PACKET PO SCH (09:00)
--- NOTE | 2017-09-02 10:39 | PRG ---
DATE OF SERVICE: 09/02/2017 SUBJECTIVE: Mr. Marie is doing better. He is off the ventilator, improved. OBJECTIVE: VITAL SIGNS: His blood pressure is 148/80 and pulse 90, it is irregular. LUNGS: Clear. CARDIAC: Irregularly irregular. ABDOMEN: Soft and nontender. ASSESSMENT: 1. Atrial fibrillation. 2. Previous pulmonary emboli. 3. Pneumonia. 4. Respiratory failure, improved. PLAN: 1. Continue intravenous diltiazem for now. 2. Continue digoxin. 3. Continue anticoagulation. 4. Continue to follow with you.
[2017-09-02] MEDS: Piperacillin/Tazobactam 3.375 GM in Sodium Chloride 0.9% 100 ML IVPB SCH ×2 (12:52→19:13)
[2017-09-02] MEDS ORDERED: Piperacillin-Tazo-Dextrose,Iso 3.375 GM in Premix Bag 1 BAG IVPB SCH (14:00)
--- NOTE | 2017-09-02 15:45 | PDOC.PN ---
- Subjective Encounter Start Date: 08/22/17 Encounter Start Time: 12:00 Delmi is agnes today, Alert and oriented. Feeling much better. No other concern noted. He said he lives in a travel Trailer. - Objective MAR Reviewed: Yes Vital Signs & Weight: Vital Signs (12 hours) Temp Pulse Resp Pulse Ox 09/02/17 13:12 98 27 H 99 09/02/17 11:00 97.8 F 09/02/17 08:52 81 09/02/17 08:10 99 09/02/17 08:08 90 27 H 99 09/02/17 07:40 98.6 F 90 20 100 09/02/17 07:00 98.6 F 09/02/17 04:00 98.9 F Weight Admit Weight 201 lb Weight 186 lb 15.232 oz Most Recent Monitor Data Heart Rate from ECG 90 NIBP 144/79 NIBP BP-Mean 103 Respiration from ECG 25 SpO2 100 I&O: 09/01/17 09/02/17 09/03/17 06:59 06:59 06:59 Intake Total 4664.8 3795.1 640 Output Total 3005 2532 615 Balance 1659.8 1263.1 25 Result Diagrams: 09/02/17 04:15 09/02/17 04:15 Additional Labs: Accuchecks 09/01/17 22:26 POC Glucose 132 H Radiology Reviewed by me: Yes EKG Reviewed by me: Yes Phys Exam - Physical Examination HEENT: PERRLA, moist MMs Neck: no nodes, no JVD Respiratory: no wheezing, no rales Cardiovascular: RRR, no significant murmur Gastrointestinal: soft, non-tender, no distention Musculoskeletal: no edema, pulses present Neurological: non-focal, normal sensation Psychiatric: normal affect, A&O x 3 Dx/Plan (1) Warfarin-induced coagulopathy Code(s): D68.9 - COAGULATION DEFECT, UNSPECIFIED; T45.515A - ADVERSE EFFECT OF ANTICOAGULANTS, INITIAL ENCOUNTER Status: Acute Comment: Resolved (2) Acute respiratory failure with hypoxia Code(s): J96.01 - ACUTE RESPIRATORY FAILURE WITH HYPOXIA Status: Acute Comment: Pulmonary managing.Resolved Now, plan to Move to Floor. (3) Bilateral pulmonary embolism Code(s): I26.99 - OTHER PULMONARY EMBOLISM WITHOUT ACUTE COR PULMONALE Status : Acute Comment: INR improved.Continue Lovenox dose based w coumadin till INR therapeutic (4) Pneumonia Code(s): J18.9 - PNEUMONIA, UNSPECIFIED ORGANISM Status: Acute Qualifiers: Pneumonia type: aspiration pneumonia Aspiration pneumonia type: due to vomit Laterality: bilateral Lung location: lower lobe of lung Qualified Code(s): J69.0 - Pneumonitis due to inhalation of food and vomit Comment: Pt had aspiration following vomiitng, suction as needed.Pt is on IV antibitoics , improved aeration left lung. continue same (5) Atrial fibrillation with RVR Code(s): I48.91 - UNSPECIFIED ATRIAL FIBRILLATION Status: Acute Comment: Stbale Rate controlled.Digoxin and now cardiazem drip per cardiology (6) Hypertension Code(s): I10 - ESSENTIAL (PRIMARY) HYPERTENSION Status: Acute (7) Pleural effusion, left Code(s): J90 - PLEURAL EFFUSION, NOT ELSEWHERE CLASSIFIED Status: Acute Comment: Improving, following pulmonary recomedation, will repeat chest xray daily.S/P thoracentesis.Fluid Cx negative so far - Plan cont current plan of care, continue antibiotics, PT/OT, social science manager, respiratory therapy, DVT proph w/lovenox * . - Discharge Day Encounter end time: 12:35 Review of Systems - Review of Systems Constitutional: weakness, malaise. negative: fever, chills, sweats, other Eyes: negative: Pain, Vision Change, Conjunctivae Inflammation, Eyelid Inflammation, Redness, Other ENT: negative: Ear Pain, Ear Discharge, Nose Pain, Nose Discharge, Nose Congestion, Mouth Pain, Mouth Swelling, Throat Pain, Throat Swelling, Other Respiratory: negative: Cough, Dry, Shortness of Breath, Hemoptysis, SOB with Excertion, Pleuritic Pain, Sputum, Wheezing Gastrointestinal: negative: Nausea, Vomiting, Abdominal Pain, Diarrhea, Constipation, Melena, Hematochezia, Other Genitourinary: negative: Dysuria, Frequency, Incontinence, Hematuria, Retention , Other Musculoskeletal: negative: Neck Pain, Shoulder Pain, Arm Pain, Back Pain, Hand Pain, Leg Pain, Foot Pain, Other Skin: negative: Rash, Lesions, David, Bruising, Other Neurological: Weakness - Medications/Allergies Allergies/Adverse Reactions: Allergies Allergy/AdvReac Type Severity Reaction Status Date / Time No Known Drug Allergies Allergy Verified 08/20/17 10:46 Medications: Current Medications Acetaminophen (Tylenol Elixir) 650 mg PO Q6H PRN PRN Reason: Fever > 101 or Mild Pain Last Admin: 08/30/17 11:12 Dose: 650 mg Albuterol/Ipratropium (Duoneb) 3 ml NEB [id number] [facility] Last Admin: 09/02/17 13:12 Dose: 3 ml Lipase/Protease/Amylase ([place] [id number]) 1 cap FS .PER PROTOCOL PRN PRN Reason: TUBE OCCLUSION PROTOCOL Benzonatate (Tessalon) 100 mg PO Q4H PRN PRN Reason: Cough Last Admin: 08/23/17 00:11 Dose: 100 mg Bisacodyl (Dulcolax) 10 mg PO DAILYPRN PRN PRN Reason: Constipation Last Admin: 08/28/17 13:46 Dose: 10 mg Clonidine (Catapres) 0.1 mg PO Q4H PRN PRN Reason: Systolic BP > 170 Digoxin (Lanoxin) 0.125 mg PO DAILY [facility] Last Admin: 09/02/17 08:52 Dose: 0.125 mg Enoxaparin Sodium (Lovenox) 80 mg SC 0900,2100 [facility] Last Admin: 09/02/17 08:51 Dose: 80 mg Guaifenesin (Robitussin Sf) 200 mg PO Q4H PRN PRN Reason: Cough Last Admin: 08/22/17 18:07 Dose: 200 mg Hydralazine HCl (Apresoline) 10 mg SLOW IVP Q4H PRN PRN Reason: Systolic BP > 180 Diltiazem HCl 125 mg/Miscellaneous Medication 1 each/ Sodium Chloride 125 mls @ 15 mls/hr IVPB INF [facility] PRN Reason: Protocol Last Admin: 09/02/17 12:52 Dose: 125 mls Piperacillin Sod/Tazobactam (Sod 3.375 gm/ Sodium Chloride) 100 mls @ 200 mls/ hr IVPB Q6HR [facility] Last Admin: 09/02/17 12:52 Dose: 100 mls Levofloxacin (Levaquin) 750 mg PO 0600 [facility] Methylprednisolone Sodium Succinate (Solu-Medrol) 20 mg IVP Q12HR [facility] Last Admin: 09/02/17 08:51 Dose: 20 mg Nitroglycerin (Nitrostat) 0.4 mg SL Q5MIN PRN PRN Reason: Chest Pain Pantoprazole Sodium (Protonix) 40 mg PO DAILY [facility] Sodium Chloride (Flush - Normal Saline) 10 ml IVF PRN PRN PRN Reason: Saline Flush Last Admin: 09/02/17 08:52 Dose: 10 ml Warfarin Sodium (Coumadin) 5 mg PO 1700 [facility] Last Admin: 09/01/17 17:59 Dose: 5 mg
[2017-09-02] MEDS: Warfarin Sodium 5 MG TAB PO SCH (17:12)
[2017-09-03] MEDS: Piperacillin/Tazobactam 3.375 GM in Sodium Chloride 0.9% 100 ML IVPB SCH ×2 (00:27→05:09)
[2017-09-03 05:54] LABS: INR-International Normal Ratio 1.2; Prothrombin Time 15.5 SEC (12.0-14.7)
[2017-09-03] MEDS: Diltiazem HCl 125 MG, Admixture Fee 1 EACH in Sodium Chloride 0.9% 100 ML IVPB SCH (06:20)
[2017-09-03] MEDS: Digoxin 0.125 MG TAB PO SCH (09:03)
[2017-09-03] MEDS: Enoxaparin Sodium 80 MG/0.8 ML SYRINGE SC SCH ×2 (09:04→20:57)
--- NOTE | 2017-09-03 09:38 | PDOC.PULPN ---
Progress Note: Subj/Obj - Subjective Date: 09/03/17 Time: 09:36 Narrative: Feels better - ROS All systems: reviewed and no additional remarkable complaints except as stated - Objective Allergies/Adverse Reactions: Allergies Allergy/AdvReac Type Severity Reaction Status Date / Time No Known Drug Allergies Allergy Verified 08/20/17 10:46 Medications: Current Medications Acetaminophen (Tylenol Elixir) 650 mg PO Q6H PRN PRN Reason: Fever > 101 or Mild Pain Last Admin: 08/30/17 11:12 Dose: 650 mg Albuterol/Ipratropium (Duoneb) 3 ml NEB [id number] [facility] Last Admin: 09/03/17 07:00 Dose: 3 ml Lipase/Protease/Amylase ([place] [id number]) 1 cap FS .PER PROTOCOL PRN PRN Reason: TUBE OCCLUSION PROTOCOL Benzonatate (Tessalon) 100 mg PO Q4H PRN PRN Reason: Cough Last Admin: 08/23/17 00:11 Dose: 100 mg Bisacodyl (Dulcolax) 10 mg PO DAILYPRN PRN PRN Reason: Constipation Last Admin: 08/28/17 13:46 Dose: 10 mg Clonidine (Catapres) 0.1 mg PO Q4H PRN PRN Reason: Systolic BP > 170 Digoxin (Lanoxin) 0.125 mg PO DAILY [facility] Last Admin: 09/03/17 09:03 Dose: 0.125 mg Enoxaparin Sodium (Lovenox) 80 mg SC 0900,2100 [facility] Last Admin: 09/03/17 09:04 Dose: 80 mg Guaifenesin (Robitussin Sf) 200 mg PO Q4H PRN PRN Reason: Cough Last Admin: 08/22/17 18:07 Dose: 200 mg Hydralazine HCl (Apresoline) 10 mg SLOW IVP Q4H PRN PRN Reason: Systolic BP > 180 Diltiazem HCl 125 mg/Miscellaneous Medication 1 each/ Sodium Chloride 125 mls @ 15 mls/hr IVPB INF [facility] PRN Reason: Protocol Last Admin: 09/03/17 06:20 Dose: 125 mls Piperacillin Sod/Tazobactam (Sod 3.375 gm/ Sodium Chloride) 100 mls @ 200 mls/ hr IVPB Q6HR [facility] Last Admin: 09/03/17 05:09 Dose: 100 mls Levofloxacin (Levaquin) 750 mg PO 0600 [facility] Last Admin: 09/03/17 05:09 Dose: 750 mg Methylprednisolone Sodium Succinate (Solu-Medrol) 20 mg IVP Q12HR [facility] Last Admin: 09/03/17 09:04 Dose: 20 mg Nitroglycerin (Nitrostat) 0.4 mg SL Q5MIN PRN PRN Reason: Chest Pain Pantoprazole Sodium (Protonix) 40 mg PO DAILY [facility] Last Admin: 09/03/17 09:04 Dose: 40 mg Sodium Chloride (Flush - Normal Saline) 10 ml IVF PRN PRN PRN Reason: Saline Flush Last Admin: 09/02/17 08:52 Dose: 10 ml Warfarin Sodium (Coumadin) 5 mg PO 1700 [facility] Last Admin: 09/02/17 17:12 Dose: 5 mg MAR Reviewed: Yes Vital Signs: Vital Signs Temp 98.7 F 09/03/17 08:59 Pulse 94 09/03/17 09:03 Resp 18 09/03/17 08:59 BP 140/65 09/03/17 08:59 Pulse Ox 96 09/03/17 03:37 Intake & Output 09/02/17 09/03/17 09/03/17 18:59 06:59 18:59 Intake Total 1847 371 Output Total 1035 2200 Balance 812 -1829 Weight 199 lb 1.6 oz Intake: Intake, IV Amount 707 171 Diltiazem HCl 125 mg 169 Admixture Fee 1 each In Sodium Chloride 0.9% 100 ml @ 15 mls/hr IVPB INF [facility] Rx#:[id number] Piperacillin-Tazo- 100 Dextrose,Iso 3.375 gm In Premix Bag 1 bag @ 100 mls/hr IVPB Q8HR [facility] Rx#: [id number] Sodium Chloride 0.45% 1, 438 000 ml @ 50 mls/hr IV . Q20H [facility] Rx#:[id number] Oral 1140 200 Output: Output, [place] 1035 2200 Other: Voiding Method Indwelling Catheter Indwelling Catheter # Bowel Movements 1 Progress Note: Exam - Physical Exam Constitutional: NAD HEENT: PERRLA, sclera anicteric Neck: no nodes Cardiovascular: RRR Focused Respiratory Location: rhonchi: Left (left base) Gastrointestinal: soft, non-tender Musculoskeletal: no edema Neurological: non-focal, moves all 4 limbs Lymphatic: no nodes Psychiatric: normal affect Skin: no rash Progress Note: Data - Labs Result Diagrams: 09/02/17 04:15 09/02/17 04:15 Lab results: Laboratory Results 09/01/17 09/01/17 09/01/17 08:00 14:55 22:26 WBC RBC Hgb Hct MCV MCH MCHC RDW Plt Count MPV Neutrophils % (Manual) Lymphocytes % (Manual) Monocytes % (Manual) Metamyelocytes % (Man) PT INR Specimen Type ARTERIAL Puncture Site LRA Bicarbonate Actual 29.8 H ABG pH 7.36 ABG pCO2 54.6 H ABG pO2 91.9 ABG O2 Sat Calc/Annabel 97.2 ABG O2 Content 11.6 L ABG Base Excess 3.7 H ABG Hemoglobin 8.5 L ABG Carboxyhemoglobin 1.5 ABG Methemoglobin 0.3 Reyes Test POSITIVE A-a O2 Gradient 125.050 H Sodium 146 Potassium 4.0 Chloride 107 H Ionized Calcium 1.2 Mode of Support SIMV.PCV Mechanical Rate 4 Inspired O2 40 Inspiratory Time 1.20 Peak Inspir Pressure 11 Pressure Support 10 PEEP or CPAP 5.0 Carbon Dioxide Anion Gap BUN Creatinine Estimated GFR (MDRD) Glucose POC Glucose 157 H 132 H Calcium 09/02/17 09/02/17 09/02/17 04:15 04:15 04:15 WBC 19.1 H RBC 3.16 L Hgb 9.8 L Hct 29.4 L MCV 93.2 MCH 31.1 H MCHC 33.3 RDW 12.5 Plt Count 285 MPV 7.8 Neutrophils % (Manual) 94 H Lymphocytes % (Manual) 3 L Monocytes % (Manual) 2 Metamyelocytes % (Man) 1 H PT 14.8 H INR 1.1 Specimen Type Puncture Site Bicarbonate Actual ABG pH ABG pCO2 ABG pO2 ABG O2 Sat Calc/Annabel ABG O2 Content ABG Base Excess ABG Hemoglobin ABG Carboxyhemoglobin ABG Methemoglobin Reyes Test A-a O2 Gradient Sodium 140 Potassium 3.9 Chloride 107 Ionized Calcium Mode of Support Mechanical Rate Inspired O2 Inspiratory Time Peak Inspir Pressure Pressure Support PEEP or CPAP Carbon Dioxide 26 Anion Gap 11 BUN 33 H Creatinine 0.65 Estimated GFR (MDRD) Greater than 90 Glucose 117 H POC Glucose Calcium 8.1 09/03/17 04:36 WBC RBC Hgb Hct MCV MCH MCHC RDW Plt Count MPV Neutrophils % (Manual) Lymphocytes % (Manual) Monocytes % (Manual) Metamyelocytes % (Man) PT 15.5 H INR 1.2 Specimen Type Puncture Site Bicarbonate Actual ABG pH ABG pCO2 ABG pO2 ABG O2 Sat Calc/Annabel ABG O2 Content ABG Base Excess ABG Hemoglobin ABG Carboxyhemoglobin ABG Methemoglobin Reyes Test A-a O2 Gradient Sodium Potassium Chloride Ionized Calcium Mode of Support Mechanical Rate Inspired O2 Inspiratory Time Peak Inspir Pressure Pressure Support PEEP or CPAP Carbon Dioxide Anion Gap BUN Creatinine Estimated GFR (MDRD) Glucose POC Glucose Calcium Progress Note: A/P - Problems (1) Acute respiratory failure with hypoxia Current Visit: Yes Status: Acute Code(s): J96.01 - ACUTE RESPIRATORY FAILURE WITH HYPOXIA (2) Bilateral pulmonary embolism Current Visit: Yes Status: Acute Code(s): I26.99 - OTHER PULMONARY EMBOLISM WITHOUT ACUTE COR PULMONALE (3) Pneumonia Current Visit: Yes Status: Acute Code(s): J18.9 - PNEUMONIA, UNSPECIFIED ORGANISM Qualifiers: Pneumonia type: aspiration pneumonia Aspiration pneumonia type: due to vomit Laterality: bilateral Lung location: lower lobe of lung Qualified Code(s): J69.0 - Pneumonitis due to inhalation of food and vomit - Plan Plan: overall improved Change to po ABX Await therapeutic INR (currently 1.2) May be very difficult to manage anticoagulation as outpt OK for rehab
--- NOTE | 2017-09-03 16:58 | PDOC.PN ---
- Subjective Encounter Start Date: 09/03/17 Encounter Start Time: 10:00 Patient is seen today, alert and oriented. No other Concenr snoted, he is Admitted with a Pneumonia and Bilateral PE and had Respiratory failure, Now Recovering, will plan for PT/OT evluation/ - Objective MAR Reviewed: Yes Vital Signs & Weight: Vital Signs (12 hours) Temp Pulse Pulse Pulse Pulse Resp BP 09/03/17 15:00 89 170 H 104 H 160/86 H 09/03/17 13:30 113 H 14 09/03/17 09:03 94 09/03/17 08:59 98.7 F 82 18 09/03/17 08:40 98.7 F 94 18 09/03/17 07:00 90 14 BP BP 09/03/17 15:00 155/86 H 09/03/17 13:30 09/03/17 09:03 09/03/17 08:59 140/65 09/03/17 08:40 09/03/17 07:00 Weight Admit Weight 197 lb 1.6 oz Weight 199 lb 1.6 oz Most Recent Monitor Data Heart Rate from ECG 94 NIBP 129/86 NIBP BP-Mean 102 Respiration from ECG 19 SpO2 100 I&O: 09/02/17 09/03/17 09/04/17 06:59 06:59 06:59 Intake Total 3795.1 2218 Output Total 2532 3235 Balance 1263.1 -1017 Result Diagrams: 09/02/17 04:15 09/02/17 04:15 Radiology Reviewed by me: Yes Phys Exam - Physical Examination HEENT: PERRLA, moist MMs Neck: no nodes, no JVD Respiratory: no wheezing, no rales Cardiovascular: RRR, no significant murmur Gastrointestinal: soft, non-tender Musculoskeletal: no edema, pulses present Neurological: non-focal, normal sensation Dx/Plan (1) Warfarin-induced coagulopathy Code(s): D68.9 - COAGULATION DEFECT, UNSPECIFIED; T45.515A - ADVERSE EFFECT OF ANTICOAGULANTS, INITIAL ENCOUNTER Status: Acute Comment: Resolved (2) Acute respiratory failure with hypoxia Code(s): J96.01 - ACUTE RESPIRATORY FAILURE WITH HYPOXIA Status: Acute Comment: Pulmonary managing.Resolved Now, plan to Move to Floor. (3) Bilateral pulmonary embolism Code(s): I26.99 - OTHER PULMONARY EMBOLISM WITHOUT ACUTE COR PULMONALE Status : Acute Comment: INR improved.Continue Lovenox dose based w coumadin till INR therapeutic (4) Pneumonia Code(s): J18.9 - PNEUMONIA, UNSPECIFIED ORGANISM Status: Acute Qualifiers: Pneumonia type: aspiration pneumonia Aspiration pneumonia type: due to vomit Laterality: bilateral Lung location: lower lobe of lung Qualified Code(s): J69.0 - Pneumonitis due to inhalation of food and vomit Comment: Pt had aspiration following vomiitng, suction as needed.Pt is on IV antibitoics , improved aeration left lung. continue same (5) Atrial fibrillation with RVR Code(s): I48.91 - UNSPECIFIED ATRIAL FIBRILLATION Status: Acute Comment: Stbale Rate controlled.Digoxin and now cardiazem drip per cardiology (6) Hypertension Code(s): I10 - ESSENTIAL (PRIMARY) HYPERTENSION Status: Acute (7) Pleural effusion, left Code(s): J90 - PLEURAL EFFUSION, NOT ELSEWHERE CLASSIFIED Status: Acute Comment: Improving, following pulmonary recomedation, will repeat chest xray daily.S/P thoracentesis.Fluid Cx negative so far - Plan cont current plan of care, PT/OT, hospital social worker, incentive spirometry, DVT proph w/lovenox Ploan for PT/OT evalaution for SNF placmeent - Discharge Day Encounter end time: 10:35 Review of Systems - Review of Systems Eyes: negative: Pain, Vision Change, Conjunctivae Inflammation, Eyelid Inflammation, Redness, Other ENT: negative: Ear Pain, Ear Discharge, Nose Pain, Nose Discharge, Nose Congestion, Mouth Pain, Mouth Swelling, Throat Pain, Throat Swelling, Other Respiratory: negative: Cough, Dry, Shortness of Breath, Hemoptysis, SOB with Excertion, Pleuritic Pain, Sputum, Wheezing Cardiovascular: negative: chest pain, palpitations, orthopnea, paroxysmal nocturnal dyspnea, edema, light headedness, other Gastrointestinal: negative: Nausea, Vomiting, Abdominal Pain, Diarrhea, Constipation, Melena, Hematochezia, Other Musculoskeletal: negative: Neck Pain, Shoulder Pain, Arm Pain, Back Pain, Hand Pain, Leg Pain, Foot Pain, Other - Medications/Allergies Allergies/Adverse Reactions: Allergies Allergy/AdvReac Type Severity Reaction Status Date / Time No Known Drug Allergies Allergy Verified 08/20/17 10:46 Medications: Current Medications Acetaminophen (Tylenol Elixir) 650 mg PO Q6H PRN PRN Reason: Fever > 101 or Mild Pain Last Admin: 08/30/17 11:12 Dose: 650 mg Albuterol/Ipratropium (Duoneb) 3 ml NEB [id number] [facility] Last Admin: 09/03/17 13:30 Dose: 3 ml Amoxicillin/Clavulanate Potassium (Augmentin) 875 mg PO Q12HR [facility] Lipase/Protease/Amylase ([place] [id number]) 1 cap FS .PER PROTOCOL PRN PRN Reason: TUBE OCCLUSION PROTOCOL Benzonatate (Tessalon) 100 mg PO Q4H PRN PRN Reason: Cough Last Admin: 08/23/17 00:11 Dose: 100 mg Bisacodyl (Dulcolax) 10 mg PO DAILYPRN PRN PRN Reason: Constipation Last Admin: 08/28/17 13:46 Dose: 10 mg Clonidine (Catapres) 0.1 mg PO Q4H PRN PRN Reason: Systolic BP > 170 Digoxin (Lanoxin) 0.125 mg PO DAILY [facility] Last Admin: 09/03/17 09:03 Dose: 0.125 mg Enoxaparin Sodium (Lovenox) 80 mg SC 0900,2100 [facility] Last Admin: 09/03/17 09:04 Dose: 80 mg Guaifenesin (Robitussin Sf) 200 mg PO Q4H PRN PRN Reason: Cough Last Admin: 08/22/17 18:07 Dose: 200 mg Hydralazine HCl (Apresoline) 10 mg SLOW IVP Q4H PRN PRN Reason: Systolic BP > 180 Diltiazem HCl 125 mg/Miscellaneous Medication 1 each/ Sodium Chloride 125 mls @ 15 mls/hr IVPB INF [facility] PRN Reason: Protocol Last Admin: 09/03/17 06:20 Dose: 125 mls Levofloxacin (Levaquin) 750 mg PO 0600 [facility] Last Admin: 09/03/17 05:09 Dose: 750 mg Methylprednisolone Sodium Succinate (Solu-Medrol) 20 mg IVP Q12HR [facility] Last Admin: 09/03/17 09:04 Dose: 20 mg Nitroglycerin (Nitrostat) 0.4 mg SL Q5MIN PRN PRN Reason: Chest Pain Pantoprazole Sodium (Protonix) 40 mg PO DAILY [facility] Last Admin: 09/03/17 09:04 Dose: 40 mg Sodium Chloride (Flush - Normal Saline) 10 ml IVF PRN PRN PRN Reason: Saline Flush Last Admin: 09/02/17 08:52 Dose: 10 ml Warfarin Sodium (Coumadin) 5 mg PO 1700 [facility] Last Admin: 09/02/17 17:12 Dose: 5 mg
[2017-09-03] MEDS: Warfarin Sodium 5 MG TAB PO SCH (17:20)
[2017-09-03] MEDS: Diabetic Tussin 200 MG/10 ML UDCUP PO PRN (17:32)
[2017-09-03] MEDS: Amoxicillin/Potassium Clav 875 MG TAB PO SCH (20:57)
[2017-09-04 05:29] LABS: INR-International Normal Ratio 1.3; Prothrombin Time 16.6 SEC (12.0-14.7)
[2017-09-04] MEDS: Benzonatate 100 MG CAP PO PRN ×2 (08:18→16:51)
[2017-09-04] MEDS: Digoxin 0.125 MG TAB PO SCH (08:19)
[2017-09-04] MEDS: Amoxicillin/Potassium Clav 875 MG TAB PO SCH ×2 (08:19→20:52)
[2017-09-04] MEDS: Enoxaparin Sodium 80 MG/0.8 ML SYRINGE SC SCH ×2 (08:19→20:52)
[2017-09-04] MEDS ORDERED: Warfarin Sodium 5 MG TAB PO SCH (09:31)
--- NOTE | 2017-09-04 09:51 | PRG ---
DATE OF SERVICE: 09/04/2017 The patient is doing better. PHYSICAL EXAMINATION: VITAL SIGNS: Temperature is 97.2, pulse 98, respirations 18, O2 sat 95%, blood pressure 163/79. HEENT: Unremarkable. NECK: No JVD. CHEST: Fairly clear. CARDIAC: S1 and S2 regular. ABDOMEN: Soft. EXTREMITIES: No edema. LABORATORY: Labs were not done today. ASSESSMENT: 1. Status post acute respiratory failure related to pneumonia. 2. Pulmonary embolism. PLAN: He is continuing Coumadin therapy. His INR is 1.3 today which has slightly increased. He may end up needing a higher dose of Coumadin than this. I think we can likely stop his steroids. His i ssues are mainly rehabilitative in nature at this point.
[2017-09-04] MEDS: Diltiazem HCl 125 MG, Admixture Fee 1 EACH in Sodium Chloride 0.9% 100 ML IVPB SCH ×2 (12:01→20:05)
--- NOTE | 2017-09-04 12:35 | PDOC.PN ---
- Subjective Encounter Start Date: 09/04/17 Encounter Start Time: 09:30 Patient is seen today, alert and oriented. He is waiting on Rehab placement, He is doing well today. - Objective MAR Reviewed: Yes Vital Signs & Weight: Vital Signs (12 hours) Temp Pulse Resp BP Pulse Ox 09/04/17 08:28 86 16 09/04/17 08:19 98 09/04/17 07:14 97.2 F L 91 18 163/79 H 95 09/04/17 00:45 84 18 93 L Weight Admit Weight 197 lb 1.6 oz Weight 192 lb 14.4 oz Most Recent Monitor Data Heart Rate from ECG 94 NIBP 129/86 NIBP BP-Mean 102 Respiration from ECG 19 SpO2 100 I&O: 09/03/17 09/04/17 09/05/17 06:59 06:59 06:59 Intake Total 2218 1143 Output Total 3235 1555 Balance -1017 -412 Result Diagrams: 09/02/17 04:15 09/02/17 04:15 Phys Exam - Physical Examination HEENT: PERRLA, moist MMs Neck: no nodes, no JVD Respiratory: no wheezing, no rales Cardiovascular: RRR, no significant murmur Gastrointestinal: soft, non-tender Musculoskeletal: no edema, pulses present Neurological: non-focal, normal sensation Lymphatic: no nodes Psychiatric: normal affect, A&O x 3 Skin: no rash, normal turgor, cap refill <2 seconds Dx/Plan (1) Warfarin-induced coagulopathy Code(s): D68.9 - COAGULATION DEFECT, UNSPECIFIED; T45.515A - ADVERSE EFFECT OF ANTICOAGULANTS, INITIAL ENCOUNTER Status: Acute Comment: Resolved (2) Acute respiratory failure with hypoxia Code(s): J96.01 - ACUTE RESPIRATORY FAILURE WITH HYPOXIA Status: Acute Comment: Pulmonary managing.Resolved Now, plan to Move to Floor. (3) Bilateral pulmonary embolism Code(s): I26.99 - OTHER PULMONARY EMBOLISM WITHOUT ACUTE COR PULMONALE Status : Acute Comment: INR improved.Continue Lovenox dose based w coumadin till INR therapeutic, today 1.3 (4) Pneumonia Code(s): J18.9 - PNEUMONIA, UNSPECIFIED ORGANISM Status: Acute Qualifiers: Pneumonia type: aspiration pneumonia Aspiration pneumonia type: due to vomit Laterality: bilateral Lung location: lower lobe of lung Qualified Code(s): J69.0 - Pneumonitis due to inhalation of food and vomit Comment: Pt is on Po Antibiotics now , improved aeration left lung. continue same (5) Atrial fibrillation with RVR Code(s): I48.91 - UNSPECIFIED ATRIAL FIBRILLATION Status: Acute Comment: Stb[place] Rate controlled.Digoxin and nowPo cardiazem (6) Hypertension Code(s): I10 - ESSENTIAL (PRIMARY) HYPERTENSION Status: Acute (7) Pleural effusion, left Code(s): J90 - PLEURAL EFFUSION, NOT ELSEWHERE CLASSIFIED Status: Acute Comment: resolved. - Plan cont current plan of care, PT/OT, respiratory therapy, incentive spirometry, out of bed/ambulate, DVT proph w/lovenox * . - Discharge Day Encounter end time: 10:00 Review of Systems - Review of Systems Eyes: negative: Pain, Vision Change, Conjunctivae Inflammation, Eyelid Inflammation, Redness, Other ENT: negative: Ear Pain, Ear Discharge, Nose Pain, Nose Discharge, Nose Congestion, Mouth Pain, Mouth Swelling, Throat Pain, Throat Swelling, Other Respiratory: negative: Cough, Dry, Shortness of Breath, Hemoptysis, SOB with Excertion, Pleuritic Pain, Sputum, Wheezing Cardiovascular: negative: chest pain, palpitations, orthopnea, paroxysmal nocturnal dyspnea, edema, light headedness, other Gastrointestinal: negative: Nausea, Vomiting, Abdominal Pain, Diarrhea, Constipation, Melena, Hematochezia, Other Musculoskeletal: negative: Neck Pain, Shoulder Pain, Arm Pain, Back Pain, Hand Pain, Leg Pain, Foot Pain, Other - Medications/Allergies Allergies/Adverse Reactions: Allergies Allergy/AdvReac Type Severity Reaction Status Date / Time No Known Drug Allergies Allergy Verified 08/20/17 10:46 Medications: Current Medications Acetaminophen (Tylenol Elixir) 650 mg PO Q6H PRN PRN Reason: Fever > 101 or Mild Pain Last Admin: 08/30/17 11:12 Dose: 650 mg Albuterol/Ipratropium (Duoneb) 3 ml NEB [id number] [facility] Last Admin: 09/04/17 08:28 Dose: 3 ml Amoxicillin/Clavulanate Potassium (Augmentin) 875 mg PO Q12HR [facility] Last Admin: 09/04/17 08:19 Dose: 875 mg Lipase/Protease/Amylase ([place] [id number]) 1 cap FS .PER PROTOCOL PRN PRN Reason: TUBE OCCLUSION PROTOCOL Benzonatate (Tessalon) 100 mg PO Q4H PRN PRN Reason: Cough Last Admin: 09/04/17 08:18 Dose: 100 mg Bisacodyl (Dulcolax) 10 mg PO DAILYPRN PRN PRN Reason: Constipation Last Admin: 08/28/17 13:46 Dose: 10 mg Clonidine (Catapres) 0.1 mg PO Q4H PRN PRN Reason: Systolic BP > 170 Last Admin: 09/03/17 17:32 Dose: 0.1 mg Digoxin (Lanoxin) 0.125 mg PO DAILY [facility] Last Admin: 09/04/17 08:19 Dose: 0.125 mg Enoxaparin Sodium (Lovenox) 80 mg SC 0900,2100 [facility] Last Admin: 09/04/17 08:19 Dose: 80 mg Guaifenesin (Robitussin Sf) 200 mg PO Q4H PRN PRN Reason: Cough Last Admin: 09/03/17 17:32 Dose: 200 mg Hydralazine HCl (Apresoline) 10 mg SLOW IVP Q4H PRN PRN Reason: Systolic BP > 180 Diltiazem HCl 125 mg/Miscellaneous Medication 1 each/ Sodium Chloride 125 mls @ 15 mls/hr IVPB INF [facility] PRN Reason: Protocol Last Admin: 09/04/17 12:01 Dose: 125 mls Levofloxacin (Levaquin) 750 mg PO 0600 [facility] Last Admin: 09/04/17 05:28 Dose: 750 mg Nitroglycerin (Nitrostat) 0.4 mg SL Q5MIN PRN PRN Reason: Chest Pain Pantoprazole Sodium (Protonix) 40 mg PO DAILY [facility] Last Admin: 09/04/17 08:19 Dose: 40 mg Sodium Chloride (Flush - Normal Saline) 10 ml IVF PRN PRN PRN Reason: Saline Flush Last Admin: 09/02/17 08:52 Dose: 10 ml Warfarin Sodium (Coumadin) 7.5 mg PO 1700 [facility]
[2017-09-04] MEDS: Warfarin Sodium 7.5 MG TAB PO SCH (16:51)
[2017-09-04] MEDS ORDERED: traZODone HCl 50 MG TAB PO PRN (18:21)
[2017-09-04] MEDS: Sodium Chloride 0.9% 1,000 ML IV SCH (19:03)
[2017-09-05] MEDS: Diltiazem HCl 125 MG, Admixture Fee 1 EACH in Sodium Chloride 0.9% 100 ML IVPB SCH (03:39)
[2017-09-05] MEDS: Sodium Chloride 0.9% 1,000 ML IV SCH ×2 (05:58→20:40)
[2017-09-05 06:08] LABS: Hemoglobin 10.4 g/dL (14.0-18.0); Platelet Count 244 thou/uL (130-400)
[2017-09-05 06:14] LABS: INR-International Normal Ratio 1.5; Prothrombin Time 18.6 SEC (12.0-14.7)
[2017-09-05 06:22] LABS: Calc. Creatinine Clearance 161 mL/min (70-130); Estimated GFR-MDRD Greater than 90
[2017-09-05] MEDS: Amoxicillin/Potassium Clav 875 MG TAB PO SCH ×2 (08:34→20:40)
[2017-09-05] MEDS: Digoxin 0.125 MG TAB PO SCH (08:34)
[2017-09-05] MEDS: Enoxaparin Sodium 80 MG/0.8 ML SYRINGE SC SCH ×2 (08:35→20:40)
[2017-09-05] MEDS ORDERED: Diltiazem HCl SR 60 mg Capsule PO SCH ×4 (09:51→21:00)
[2017-09-05 10:34] LABS: #Eosinphils 0.2 thou/uL (0.0-0.7); #Lymphocytes 1.9 thou/uL (1.20-3.40); #Monocytes 0.9 thou/uL (0.11-0.59); #Neutrophils 13.5 thou/uL (1.40-6.50); %Basophils 0.2 % (0.0-1.0); %Lymphocytes 11.5 % (21.0-51.0); %Monocytes 5.3 % (0.0-10.0); %Neutrophils 82.1 % (42.0-75.0); Hemoglobin 10.3 g/dL (14.0-18.0); Mean Corpuscular HGB CONC 33.9 g/dL (32.0-36.0); Mean Corpuscular Hemoglobin 31.1 pg (27.0-31.0); Mean Corpuscular Volume 91.7 fl (80.0-94.0); Mean Platelet Volume 8.3 fL (7.4-10.4); Platelet Count 241 thou/uL (130-400); RBC Distribution Width 12.9 % (11.5-14.5); Red Blood Cell (RBC) Count 3.33 mill/uL (4.70-6.10); White Blood Cell (WBC) Count 16.5 thou/uL (4.8-10.8)
[2017-09-05 10:48] LABS: Anion Gap 11 mmol/L (10-20); BUN (Urea Nitrogen) 15 mg/dL (8.4-25.7); Calc. Creatinine Clearance 163 mL/min (70-130); Calcium 8.2 mg/dL (7.8-10.44); Carbon Dioxide 23 mmol/L (22-29); Chloride 104 mmol/L (98-107); Estimated GFR-MDRD Greater than 90; Glucose 68 mg/dL (70-105); Potassium 3.8 mmol/L (3.5-5.1); Sodium 134 mmol/L (136-145)
--- NOTE | 2017-09-05 12:37 | PRG ---
DATE OF SERVICE: 09/05/2017 SUBJECTIVE: Mr. Marie feels okay. For reasons that are not quite clear, he continues on a Cardiz em drip. OBJECTIVE: VITAL SIGNS: On exam, his temperature is 98.7, pulse 80, respirations 16, O2 sat 95%, blood pressure 130/65. HEENT: Unremarkable. NECK: No JVD. CARDIAC: S1 and S2 regular. ABDOMEN: Soft. EXTREMITIES: No edema. LABORATORY DATA: White blood count 16.5, hematocrit 30, platelet count 241. Sodium 134, potassium 3 .8, chloride 104, CO2 of 23, BUN 15, creatinine 0.6, glucose 68. ASSESSMENT: 1. Status post respiratory failure related to pulmonary embolism and pneumonia. 2. Paroxysmal atrial fibrillation. RECOMMENDATION: I would recommend stopping his Cardizem drip. His INR is trending upward with the i ncrease of dose of Coumadin given yesterday. 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
[2017-09-05 14:33] VITALS: BMI 27.1
--- NOTE | 2017-09-05 16:03 | PDOC.PN ---
- Subjective Encounter Start Date: 09/05/17 Encounter Start Time: 13:00 Patient is seen today, alert and oriented. he is still on Cardizem Drip started by cardiology on 08/28. No chest pain or SOB. - Objective MAR Reviewed: Yes Vital Signs & Weight: Vital Signs (12 hours) Temp Pulse Pulse Pulse Resp BP BP 09/05/17 15:37 80 16 09/05/17 10:54 09/05/17 10:52 80 16 09/05/17 08:34 83 09/05/17 08:33 102 H 95 157/92 H 162/97 H 09/05/17 08:00 98.7 F 83 20 Pulse Ox 09/05/17 15:37 09/05/17 10:54 95 09/05/17 10:52 09/05/17 08:34 09/05/17 08:33 09/05/17 08:00 95 Weight Admit Weight 197 lb 1.6 oz Weight 189 lb 4.8 oz Most Recent Monitor Data Heart Rate from ECG 94 NIBP 129/86 NIBP BP-Mean 102 Respiration from ECG 19 SpO2 100 I&O: 09/04/17 09/05/17 09/06/17 06:59 06:59 06:59 Intake Total 1143 1059 Output Total 1555 600 Balance -412 459 Result Diagrams: 09/05/17 10:14 09/05/17 10:14 Phys Exam - Physical Examination HEENT: PERRLA, moist MMs Neck: no nodes, no JVD Respiratory: no wheezing, no rales Cardiovascular: RRR, no significant murmur Gastrointestinal: soft, non-tender Musculoskeletal: no edema, pulses present Neurological: non-focal, normal sensation Lymphatic: no nodes Psychiatric: normal affect, A&O x 3 Dx/Plan (1) Warfarin-induced coagulopathy Code(s): D68.9 - COAGULATION DEFECT, UNSPECIFIED; T45.515A - ADVERSE EFFECT OF ANTICOAGULANTS, INITIAL ENCOUNTER Status: Acute Comment: Resolved (2) Acute respiratory failure with hypoxia Code(s): J96.01 - ACUTE RESPIRATORY FAILURE WITH HYPOXIA Status: Acute Comment: Pulmonary managing.Resolved Now, plan to Move to Floor. (3) Bilateral pulmonary embolism Code(s): I26.99 - OTHER PULMONARY EMBOLISM WITHOUT ACUTE COR PULMONALE Status : Acute Comment: INR improved.Continue Lovenox dose based w coumadin till INR therapeutic, today 1.3 (4) Pneumonia Code(s): J18.9 - PNEUMONIA, UNSPECIFIED ORGANISM Status: Acute Qualifiers: Pneumonia type: aspiration pneumonia Aspiration pneumonia type: due to vomit Laterality: bilateral Lung location: lower lobe of lung Qualified Code(s): J69.0 - Pneumonitis due to inhalation of food and vomit Comment: Pt is on Po Antibiotics now , improved aeration left lung. continue same (5) Atrial fibrillation with RVR Code(s): I48.91 - UNSPECIFIED ATRIAL FIBRILLATION Status: Acute Comment: Stbale Rate controlled.Digoxin and nowPo cardiazem started with Po 60mg BID, if rate constrolled to discharge to Home. (6) Hypertension Code(s): I10 - ESSENTIAL (PRIMARY) HYPERTENSION Status: Acute Comment: stbale at goal. (7) Pleural effusion, left Code(s): J90 - PLEURAL EFFUSION, NOT ELSEWHERE CLASSIFIED Status: Acute Comment: resolved. - Plan cont current plan of care, continue antibiotics, PT/OT, delinquency prevention social worker, respiratory therapy, DVT proph w/lovenox * . - Discharge Day Encounter end time: 13:30 Review of Systems - Review of Systems Constitutional: negative: fever, chills, sweats, weakness, malaise, other Eyes: negative: Pain, Vision Change, Conjunctivae Inflammation, Eyelid Inflammation, Redness, Other ENT: negative: Ear Pain, Ear Discharge, Nose Pain, Nose Discharge, Nose Congestion, Mouth Pain, Mouth Swelling, Throat Pain, Throat Swelling, Other Respiratory: negative: Cough, Dry, Shortness of Breath, Hemoptysis, SOB with Excertion, Pleuritic Pain, Sputum, Wheezing Cardiovascular: negative: chest pain, palpitations, orthopnea, paroxysmal nocturnal dyspnea, edema, light headedness, other Gastrointestinal: negative: Nausea, Vomiting, Abdominal Pain, Diarrhea, Constipation, Melena, Hematochezia, Other Genitourinary: negative: Dysuria, Frequency, Incontinence, Hematuria, Retention , Other Musculoskeletal: negative: Neck Pain, Shoulder Pain, Arm Pain, Back Pain, Hand Pain, Leg Pain, Foot Pain, Other Skin: negative: Rash, Lesions, David, Bruising, Other - Medications/Allergies Allergies/Adverse Reactions: Allergies Allergy/AdvReac Type Severity Reaction Status Date / Time No Known Drug Allergies Allergy Verified 08/20/17 10:46 Medications: Current Medications Acetaminophen (Tylenol Elixir) 650 mg PO Q6H PRN PRN Reason: Fever > 101 or Mild Pain Last Admin: 08/30/17 11:12 Dose: 650 mg Albuterol/Ipratropium (Duoneb) 3 ml NEB [id number] [facility] Last Admin: 09/05/17 15:37 Dose: 3 ml Amoxicillin/Clavulanate Potassium (Augmentin) 875 mg PO Q12HR [facility] Last Admin: 09/05/17 08:34 Dose: 875 mg Lipase/Protease/Amylase ([place] [id number]) 1 cap FS .PER PROTOCOL PRN PRN Reason: TUBE OCCLUSION PROTOCOL Benzonatate (Tessalon) 100 mg PO Q4H PRN PRN Reason: Cough Last Admin: 09/04/17 16:51 Dose: 100 mg Bisacodyl (Dulcolax) 10 mg PO DAILYPRN PRN PRN Reason: Constipation Last Admin: 08/28/17 13:46 Dose: 10 mg Clonidine (Catapres) 0.1 mg PO Q4H PRN PRN Reason: Systolic BP > 170 Last Admin: 09/03/17 17:32 Dose: 0.1 mg Digoxin (Lanoxin) 0.125 mg PO DAILY [facility] Last Admin: 09/05/17 08:34 Dose: 0.125 mg Diltiazem HCl (Cardizem Sr) 60 mg PO BID [facility] Enoxaparin Sodium (Lovenox) 80 mg SC 0900,2100 [facility] Last Admin: 09/05/17 08:35 Dose: 80 mg Guaifenesin (Robitussin Sf) 200 mg PO Q4H PRN PRN Reason: Cough Last Admin: 09/03/17 17:32 Dose: 200 mg Hydralazine HCl (Apresoline) 10 mg SLOW IVP Q4H PRN PRN Reason: Systolic BP > 180 Sodium Chloride (Normal Saline 0.9%) 1,000 mls @ 75 mls/hr IV .[id number] [facility] Last Admin: 09/05/17 05:58 Dose: 1,000 mls Levofloxacin (Levaquin) 750 mg PO 0600 [facility] Last Admin: 09/05/17 05:58 Dose: 750 mg Nitroglycerin (Nitrostat) 0.4 mg SL Q5MIN PRN PRN Reason: Chest Pain Pantoprazole Sodium (Protonix) 40 mg PO DAILY [facility] Last Admin: 09/05/17 08:35 Dose: 40 mg Sodium Chloride (Flush - Normal Saline) 10 ml IVF PRN PRN PRN Reason: Saline Flush Last Admin: 09/02/17 08:52 Dose: 10 ml Trazodone HCl (Desyrel) 100 mg PO HSPRN PRN PRN Reason: Insomnia Last Admin: 09/04/17 20:53 Dose: 100 mg Warfarin Sodium (Coumadin) 7.5 mg PO 1700 [facility] Last Admin: 09/04/17 16:51 Dose: 7.5 mg
[2017-09-05] MEDS: Warfarin Sodium 7.5 MG TAB PO SCH (16:45)
--- NOTE | 2017-09-05 20:36 | PRG ---
CARDIOLOGY FOLLOWUP NOTE DATE OF SERVICE: 09/05/2017 SUBJECTIVE: Mr. Marie is doing better. He is breathing much better. His heart rate is better co ntrolled. OBJECTIVE: VITAL SIGNS: Blood pressure 150/79 and pulse 80-100 irregular. LUNGS: Clear. CARDIAC: Irregularly irregular. ABDOMEN: Soft and nontender. EXTREMITIES: No edema. LABORATORY DATA: INR is up to 1.5. ASSESSMENT: 1. Atrial fibrillation, chronic. 2. History of pulmonary embolus. 3. History of pneumonia. PLAN: 1. He is on diltiazem. We will change to diltiazem CD 180 mg a day. 2. Digoxin 0.125 mg a day. 3. Coumadin. 4. We will need to follow up as an outpatient in the Coumadin clinic for followup.
[2017-09-06 05:52] LABS: INR-International Normal Ratio 1.9; Prothrombin Time 22.3 SEC (12.0-14.7)
[2017-09-06] MEDS: Enoxaparin Sodium 80 MG/0.8 ML SYRINGE SC SCH ×2 (09:01→22:03)
[2017-09-06] MEDS: Sodium Chloride 0.9% 1,000 ML IV SCH (09:01)
[2017-09-06] MEDS: Digoxin 0.125 MG TAB PO SCH (09:01)
[2017-09-06] MEDS: Amoxicillin/Potassium Clav 875 MG TAB PO SCH ×2 (09:01→22:04)
--- NOTE | 2017-09-06 09:50 | RAD ---
CHEST 1 VIEW: Date: 09/06/17 HISTORY: Shortness of breath. COMPARISON: Chest 1 view dated 09/02/17. FINDINGS: Layering left effusion is redistributed and similar in size. Cardiac silhouette and mediastinal conto ur is similar. Right lung is relatively clear. IMPRESSION: No significant change. POS: [facility]
[2017-09-06] MEDS: Acetaminophen 650 MG/20.3 ML UDCUP PO PRN (13:07)
--- NOTE | 2017-09-06 14:16 | PDOC.PN ---
- Subjective Encounter Start Date: 09/06/17 Encounter Start Time: 13:30 Patient is seeen today, alert and oriented. No diarrha, pt is Doing fine, He persistantly is Tachycardic. - Objective MAR Reviewed: Yes Vital Signs & Weight: Vital Signs (12 hours) Temp Pulse Resp BP BP Pulse Ox 09/06/17 12:24 99.0 F 118 H 20 158/76 H 96 09/06/17 09:01 128 H 09/06/17 08:54 99.7 F H 128 H 20 159/82 H 92 L 09/06/17 08:41 123 H 16 09/06/17 08:00 99.7 F H 128 H 20 92 L 09/06/17 04:00 100.7 F H 131 H 20 155/76 H 92 L Weight Admit Weight 197 lb 1.6 oz Weight 189 lb 8 oz Most Recent Monitor Data Heart Rate from ECG 94 NIBP 129/86 NIBP BP-Mean 102 Respiration from ECG 19 SpO2 100 I&O: 09/05/17 09/06/17 09/07/17 06:59 06:59 06:59 Intake Total 1059 3460 Output Total 600 4175 Balance 459 -445 Result Diagrams: 09/05/17 10:14 09/05/17 10:14 Radiology Reviewed by me: Yes Phys Exam - Physical Examination HEENT: PERRLA, moist MMs Neck: no nodes, no JVD Respiratory: no wheezing, no rales Cardiovascular: RRR, no significant murmur Gastrointestinal: soft, non-tender Musculoskeletal: no edema, pulses present Neurological: non-focal, normal sensation Dx/Plan (1) Warfarin-induced coagulopathy Code(s): D68.9 - COAGULATION DEFECT, UNSPECIFIED; T45.515A - ADVERSE EFFECT OF ANTICOAGULANTS, INITIAL ENCOUNTER Status: Acute Comment: Resolved (2) Acute respiratory failure with hypoxia Code(s): J96.01 - ACUTE RESPIRATORY FAILURE WITH HYPOXIA Status: Acute Comment: Pulmonary managing.Resolved Now, plan to Move to Floor. (3) Bilateral pulmonary embolism Code(s): I26.99 - OTHER PULMONARY EMBOLISM WITHOUT ACUTE COR PULMONALE Status : Acute Comment: INR improved.Continue Lovenox dose based w coumadin till INR therapeutic, today 1.3 (4) Pneumonia Code(s): J18.9 - PNEUMONIA, UNSPECIFIED ORGANISM Status: Acute Qualifiers: Pneumonia type: aspiration pneumonia Aspiration pneumonia type: due to vomit Laterality: bilateral Lung location: lower lobe of lung Qualified Code(s): J69.0 - Pneumonitis due to inhalation of food and vomit Comment: Pt is on Po Antibiotics now , improved aeration left lung. continue same (5) Atrial fibrillation with RVR Code(s): I48.91 - UNSPECIFIED ATRIAL FIBRILLATION Status: Acute Comment: Stbale Rate controlled.Digoxin and nowPo cardiazem increased to 180mg CD, if rate constrolled to discharge to Home.Likely Friday. (6) Hypertension Code(s): I10 - ESSENTIAL (PRIMARY) HYPERTENSION Status: Acute Comment: stbale at goal. (7) Pleural effusion, left Code(s): J90 - PLEURAL EFFUSION, NOT ELSEWHERE CLASSIFIED Status: Acute Comment: resolved. - Plan cont current plan of care, mancini catheter, continue antibiotics, PT/OT, respiratory therapy, incentive spirometry, DVT proph w/lovenox * . - Discharge Day Encounter end time: 14:00 Review of Systems - Review of Systems Eyes: negative: Pain, Vision Change, Conjunctivae Inflammation, Eyelid Inflammation, Redness, Other ENT: negative: Ear Pain, Ear Discharge, Nose Pain, Nose Discharge, Nose Congestion, Mouth Pain, Mouth Swelling, Throat Pain, Throat Swelling, Other Respiratory: negative: Cough, Dry, Shortness of Breath, Hemoptysis, SOB with Excertion, Pleuritic Pain, Sputum, Wheezing Cardiovascular: negative: chest pain, palpitations, orthopnea, paroxysmal nocturnal dyspnea, edema, light headedness, other Gastrointestinal: negative: Nausea, Vomiting, Abdominal Pain, Diarrhea, Constipation, Melena, Hematochezia, Other Genitourinary: negative: Dysuria, Frequency, Incontinence, Hematuria, Retention , Other Musculoskeletal: negative: Neck Pain, Shoulder Pain, Arm Pain, Back Pain, Hand Pain, Leg Pain, Foot Pain, Other - Medications/Allergies Allergies/Adverse Reactions: Allergies Allergy/AdvReac Type Severity Reaction Status Date / Time No Known Drug Allergies Allergy Verified 08/20/17 10:46 Medications: Current Medications Acetaminophen (Tylenol Elixir) 650 mg PO Q6H PRN PRN Reason: Fever > 101 or Mild Pain Last Admin: 09/06/17 13:07 Dose: 650 mg Albuterol/Ipratropium (Duoneb) 3 ml NEB [id number] [facility] Last Admin: 09/06/17 08:41 Dose: 3 ml Amoxicillin/Clavulanate Potassium (Augmentin) 875 mg PO Q12HR [facility] Last Admin: 09/06/17 09:01 Dose: 875 mg Lipase/Protease/Amylase ([place] [id number]) 1 cap FS .PER PROTOCOL PRN PRN Reason: TUBE OCCLUSION PROTOCOL Benzonatate (Tessalon) 100 mg PO Q4H PRN PRN Reason: Cough Last Admin: 09/04/17 16:51 Dose: 100 mg Bisacodyl (Dulcolax) 10 mg PO DAILYPRN PRN PRN Reason: Constipation Last Admin: 08/28/17 13:46 Dose: 10 mg Clonidine (Catapres) 0.1 mg PO Q4H PRN PRN Reason: Systolic BP > 170 Last Admin: 09/03/17 17:32 Dose: 0.1 mg Digoxin (Lanoxin) 0.125 mg PO DAILY [facility] Last Admin: 09/06/17 09:01 Dose: 0.125 mg Diltiazem HCl (Cardizem Cd) 180 mg PO DAILY [facility] Last Admin: 09/06/17 09:01 Dose: 180 mg Enoxaparin Sodium (Lovenox) 80 mg SC 0900,2100 [facility] Last Admin: 09/06/17 09:01 Dose: 80 mg Guaifenesin (Robitussin Sf) 200 mg PO Q4H PRN PRN Reason: Cough Last Admin: 09/03/17 17:32 Dose: 200 mg Hydralazine HCl (Apresoline) 10 mg SLOW IVP Q4H PRN PRN Reason: Systolic BP > 180 Sodium Chloride (Normal Saline 0.9%) 1,000 mls @ 75 mls/hr IV .[id number] [facility] Last Admin: 09/06/17 09:01 Dose: 1,000 mls Levofloxacin (Levaquin) 750 mg PO 0600 [facility] Last Admin: 09/06/17 04:57 Dose: 750 mg Nitroglycerin (Nitrostat) 0.4 mg SL Q5MIN PRN PRN Reason: Chest Pain Pantoprazole Sodium (Protonix) 40 mg PO DAILY [facility] Last Admin: 09/06/17 09:01 Dose: 40 mg Sodium Chloride (Flush - Normal Saline) 10 ml IVF PRN PRN PRN Reason: Saline Flush Last Admin: 09/02/17 08:52 Dose: 10 ml Trazodone HCl (Desyrel) 100 mg PO HSPRN PRN PRN Reason: Insomnia Last Admin: 09/04/17 20:53 Dose: 100 mg Warfarin Sodium (Coumadin) 7.5 mg PO 1700 [facility] Last Admin: 09/05/17 16:45 Dose: 7.5 mg
[2017-09-06] MEDS ORDERED: Carvedilol 6.25 MG TAB PO SCH (14:40)
--- NOTE | 2017-09-06 14:45 | PDOC.CTH ---
<Erica High - Last Filed: 09/06/17 14:52> Cardiology Progress Note - Subjective The pt seen and examined. No overnight events. No cardiac complaints. Per nurse, The pt's HR has been up to 180-190s with walking. The pt still complains of SOB. - Objective Vital Signs Temp Pulse Resp BP BP Pulse Ox 09/06/17 12:24 99.0 F 118 H 20 158/76 H 96 09/06/17 09:01 128 H 09/06/17 08:54 99.7 F H 128 H 20 159/82 H 92 L 09/06/17 08:41 123 H 16 09/06/17 08:00 99.7 F H 128 H 20 92 L 09/06/17 04:00 100.7 F H 131 H 20 155/76 H 92 L Admit Weight 197 lb 1.6 oz Weight 189 lb 8 oz 09/05/17 09/06/17 09/07/17 06:59 06:59 06:59 Intake Total 1059 3460 Output Total 600 4175 Balance 459 -715 - Physical Examination General/Neuro: alert & oriented x3 Neck: no JVD present Lungs: other: (diminished at bases) Heart: other: (irregular) Abdomen: soft Extremities: other: (no edema) - Telemetry Telemetry Rhythm: Afib with 120-130s - Labs Result Diagrams: 09/05/17 10:14 09/05/17 10:14 Troponin/CKMB CK-MB (CK-2) 5.4 ng/mL (0-6.6) 08/22/17 21:02 Troponin I Less than 0.010 ng/mL (< 0.028) 08/22/17 21:02 - Assessment/Plan 1. Chronic afib w/RVR - HR has been 120-130s and up to 190s with walking with Diltiazem 180mg QD and Dig 0.125mg PO daily; Digoxin 0.125mg IV push x1 now and Start Coreg 6.25,mg PO BID; cont. monitor 2. LLL PNA - on antibiotic; managed by PCP 3. Bilat. PE - on Coumadin and Lovenox due to INR 1.9 today; managed by Electrical Machine Builder 4. HTN - start Coreg 6.25mg BID; cont. monitor MAR reviewed Review of Systems - Review of Systems Constitutional: reports: no symptoms reported EENTM: reports: no symptoms reported Respiratory: reports: see HPI Cardiac (ROS): reports: no symptoms reported ABD/GI: reports: no symptoms reported : reports: no symptoms reported Musculoskeletal: reports: no symptoms reported Skin: reports: no symptoms reported Neurological: reports: no symptoms reported <Ken Lobato - Last Filed: 09/07/17 01:29> Cardiology Progress Note - Objective Vital Signs Temp Pulse Resp BP Pulse Ox 09/07/17 00:49 104 H 18 96 09/06/17 20:04 98.7 F 90 18 140/81 92 L 09/06/17 18:40 105 H 16 99 09/06/17 16:00 99.6 F 89 20 136/76 94 L 09/06/17 15:44 118 H Admit Weight 197 lb 1.6 oz Weight 189 lb 8 oz 09/05/17 09/06/17 09/07/17 06:59 06:59 06:59 Intake Total 1059 3460 1230 Output Total 600 4175 500 Balance 459 -715 730 - Labs Result Diagrams: 09/05/17 10:14 09/05/17 10:14 Troponin/CKMB CK-MB (CK-2) 5.4 ng/mL (0-6.6) 08/22/17 21:02 Troponin I Less than 0.010 ng/mL (< 0.028) 08/22/17 21:02 - Assessment/Plan The pt. was seen and eval. by me. I agree with the A/P by the ETL DATABASE DEVELOPER.
[2017-09-06] MEDS ORDERED: Digoxin 0.5 MG/2 ML AMP SLOW IVP SCH (15:00)
[2017-09-06] MEDS ORDERED: Acetaminophen 325 MG TAB PO PRN (15:00)
--- NOTE | 2017-09-06 15:27 | PRG ---
DATE OF SERVICE: 09/06/2017 SUBJECTIVE: Mr. Marie felt better today. He had no acute complaints. PHYSICAL EXAMINATION: VITAL SIGNS: His temperature max was 100.7 earlier this morning, pulse 118, respirations 20, O2 sat 96%, blood pressure 158/76. HEENT: Unremarkable. NECK: No JVD. CHEST: Demonstrates some crackles in the base, more so on the left than right. CARDIAC: S1 and S2 regular. ABDOMEN: Soft. EXTREMITIES: No edema. DIAGNOSTIC DATA: Chest x-ray shows infiltrative changes on the left and small effusion. LABORATORY DATA: No new labs were obtained today. ASSESSMENT: 1. Status post respiratory failure for pneumonia. 2. Pulmonary embolism -- INR 1.9. PLAN: 1. Continue antibiotics. 2. Watch fever. If it persists, we may need to get a CT of the chest to make sure he is not develop ing any loculations on the left.
[2017-09-06] MEDS: Carvedilol 6.25 MG TAB PO SCH (17:06)
[2017-09-06] MEDS: Warfarin Sodium 7.5 MG TAB PO SCH (17:06)
[2017-09-07] MEDS: Sodium Chloride 0.9% 1,000 ML IV SCH ×2 (05:30→14:31)
[2017-09-07 05:36] LABS: Hemoglobin 9.9 g/dL (14.0-18.0); Platelet Count 213 thou/uL (130-400)
[2017-09-07 05:38] LABS: INR-International Normal Ratio 2.3; Prothrombin Time 25.9 SEC (12.0-14.7)
[2017-09-07 05:45] LABS: Calc. Creatinine Clearance 152 mL/min (70-130); Estimated GFR-MDRD Greater than 90
[2017-09-07] MEDS: Digoxin 0.125 MG TAB PO SCH (10:54)
[2017-09-07] MEDS: Amoxicillin/Potassium Clav 875 MG TAB PO SCH ×2 (10:54→21:09)
[2017-09-07] MEDS: Carvedilol 6.25 MG TAB PO SCH ×2 (10:54→16:55)
[2017-09-07] MEDS: Enoxaparin Sodium 80 MG/0.8 ML SYRINGE SC SCH (10:55)
--- NOTE | 2017-09-07 13:07 | PRG ---
DATE OF SERVICE: 09/07/2017 SUBJECTIVE: Mr. Marie is doing well and says he is ready to go home. OBJECTIVE: VITAL SIGNS: On exam, he continues to run low-grade temperature around 100.2, pulse 90, blood pressu re 139/80, O2 sat 96% on 2 liters. HEENT: Unremarkable. NECK: No JVD. LUNGS: Fairly clear without wheezing or crackles. ABDOMEN: Soft, nontender. CARDIAC: S1 and S2, regular. LABORATORY DATA: Hemoglobin 9.9, hematocrit 28.9, platelet count 213. INR is 2.3. ASSESSMENT: 1. Pulmonary embolism. 2. Status post acute respiratory failure, related to pneumonia. PLAN: Continue antibiotics through 14 total days between hospital and home. He will need his INR ch ecked by his primary care physician frequently until he is equilibrated - this will be affected by hi s antibiotics. He needs to see me in the office in 3-4 weeks for repeat chest x-ray.
--- NOTE | 2017-09-07 13:22 | PDOC.PN ---
- Subjective Encounter Start Date: 09/07/17 Encounter Start Time: 11:30 Patient is seen today, alert and oriented. He had no fever last night, Want to go home tomorrow. Pulmonary watchin him for any fever to do CT chest. - Objective MAR Reviewed: Yes Vital Signs & Weight: Vital Signs (12 hours) Temp Pulse Resp BP BP Pulse Ox 09/07/17 10:54 90 139/80 09/07/17 08:29 96 09/07/17 08:00 100.2 F H 90 22 H 141/78 H 95 09/07/17 04:00 99.8 F H 90 18 162/82 H 92 L Weight Admit Weight 197 lb 1.6 oz Weight 179 lb 4.8 oz Most Recent Monitor Data Heart Rate from ECG 94 NIBP 129/86 NIBP BP-Mean 102 Respiration from ECG 19 SpO2 100 I&O: 09/06/17 09/07/17 09/08/17 06:59 06:59 06:59 Intake Total 3460 1730 Output Total 4175 950 Balance -715 780 Result Diagrams: 09/07/17 05:03 09/07/17 05:03 Radiology Reviewed by me: Yes Phys Exam - Physical Examination HEENT: PERRLA, moist MMs Neck: no nodes, no JVD Respiratory: no wheezing, no rales Cardiovascular: RRR, no significant murmur Gastrointestinal: soft, non-tender Musculoskeletal: no edema, pulses present Neurological: non-focal, normal sensation Dx/Plan (1) Warfarin-induced coagulopathy Code(s): D68.9 - COAGULATION DEFECT, UNSPECIFIED; T45.515A - ADVERSE EFFECT OF ANTICOAGULANTS, INITIAL ENCOUNTER Status: Acute Comment: Resolved (2) Acute respiratory failure with hypoxia Code(s): J96.01 - ACUTE RESPIRATORY FAILURE WITH HYPOXIA Status: Acute Comment: Pulmonary managing.Resolved Now, plan to Move to Floor. (3) Bilateral pulmonary embolism Code(s): I26.99 - OTHER PULMONARY EMBOLISM WITHOUT ACUTE COR PULMONALE Status : Acute Comment: INR improved.d/c Lovenox coumadin INR therapeutic, today 2.3 (4) Pneumonia Code(s): J18.9 - PNEUMONIA, UNSPECIFIED ORGANISM Status: Acute Qualifiers: Pneumonia type: aspiration pneumonia Aspiration pneumonia type: due to vomit Laterality: bilateral Lung location: lower lobe of lung Qualified Code(s): J69.0 - Pneumonitis due to inhalation of food and vomit Comment: Pt is on Po Antibiotics now , improved aeration left lung. continue same. (5) Atrial fibrillation with RVR Code(s): I48.91 - UNSPECIFIED ATRIAL FIBRILLATION Status: Acute Comment: Stbale Rate controlled.Digoxin and nowPo cardiazem increased to 180mg CD, if rate constrolled to discharge to Home.Likely Friday. (6) Hypertension Code(s): I10 - ESSENTIAL (PRIMARY) HYPERTENSION Status: Acute Comment: stbale at goal. (7) Pleural effusion, left Code(s): J90 - PLEURAL EFFUSION, NOT ELSEWHERE CLASSIFIED Status: Acute Comment: resolved. - Plan cont current plan of care, PT/OT, social work manager, respiratory therapy, incentive spirometry, out of bed/ambulate, DVT proph w/lovenox * . - Discharge Day Encounter end time: 12:05 Review of Systems - Review of Systems Eyes: negative: Pain, Vision Change, Conjunctivae Inflammation, Eyelid Inflammation, Redness, Other ENT: negative: Ear Pain, Ear Discharge, Nose Pain, Nose Discharge, Nose Congestion, Mouth Pain, Mouth Swelling, Throat Pain, Throat Swelling, Other Respiratory: negative: Cough, Dry, Shortness of Breath, Hemoptysis, SOB with Excertion, Pleuritic Pain, Sputum, Wheezing Cardiovascular: negative: chest pain, palpitations, orthopnea, paroxysmal nocturnal dyspnea, edema, light headedness, other Gastrointestinal: negative: Nausea, Vomiting, Abdominal Pain, Diarrhea, Constipation, Melena, Hematochezia, Other Genitourinary: negative: Dysuria, Frequency, Incontinence, Hematuria, Retention , Other Musculoskeletal: negative: Neck Pain, Shoulder Pain, Arm Pain, Back Pain, Hand Pain, Leg Pain, Foot Pain, Other Skin: negative: Rash, Lesions, David, Bruising, Other - Medications/Allergies Allergies/Adverse Reactions: Allergies Allergy/AdvReac Type Severity Reaction Status Date / Time No Known Drug Allergies Allergy Verified 08/20/17 10:46 Medications: Current Medications Acetaminophen (Tylenol) 650 mg PO Q6H PRN PRN Reason: Fever > 101 or Mild Pain Last Admin: 09/07/17 08:28 Dose: 650 mg Albuterol/Ipratropium (Duoneb) 3 ml NEB [id number] [facility] Last Admin: 09/07/17 08:28 Dose: Not Given Amoxicillin/Clavulanate Potassium (Augmentin) 875 mg PO Q12HR [facility] Last Admin: 09/07/17 10:54 Dose: 875 mg Lipase/Protease/Amylase ([place] [id number]) 1 cap FS .PER PROTOCOL PRN PRN Reason: TUBE OCCLUSION PROTOCOL Benzonatate (Tessalon) 100 mg PO Q4H PRN PRN Reason: Cough Last Admin: 09/04/17 16:51 Dose: 100 mg Bisacodyl (Dulcolax) 10 mg PO DAILYPRN PRN PRN Reason: Constipation Last Admin: 08/28/17 13:46 Dose: 10 mg Carvedilol (Coreg) 6.25 mg PO BID-[facility] Last Admin: 09/07/17 10:54 Dose: 6.25 mg Clonidine (Catapres) 0.1 mg PO Q4H PRN PRN Reason: Systolic BP > 170 Last Admin: 09/03/17 17:32 Dose: 0.1 mg Digoxin (Lanoxin) 0.125 mg PO DAILY [facility] Last Admin: 09/07/17 10:54 Dose: 0.125 mg Diltiazem HCl (Cardizem Cd) 180 mg PO DAILY [facility] Last Admin: 09/07/17 10:55 Dose: 180 mg Enoxaparin Sodium (Lovenox) 80 mg SC 0900,2100 [facility] Last Admin: 09/07/17 10:55 Dose: 80 mg Guaifenesin (Robitussin Sf) 200 mg PO Q4H PRN PRN Reason: Cough Last Admin: 09/03/17 17:32 Dose: 200 mg Hydralazine HCl (Apresoline) 10 mg SLOW IVP Q4H PRN PRN Reason: Systolic BP > 180 Sodium Chloride (Normal Saline 0.9%) 1,000 mls @ 75 mls/hr IV .[id number] [facility] Last Admin: 09/07/17 05:30 Dose: Not Given Levofloxacin (Levaquin) 750 mg PO 0600 [facility] Last Admin: 09/07/17 05:31 Dose: 750 mg Nitroglycerin (Nitrostat) 0.4 mg SL Q5MIN PRN PRN Reason: Chest Pain Pantoprazole Sodium (Protonix) 40 mg PO DAILY [facility] Last Admin: 09/07/17 10:55 Dose: 40 mg Sodium Chloride (Flush - Normal Saline) 10 ml IVF PRN PRN PRN Reason: Saline Flush Last Admin: 09/02/17 08:52 Dose: 10 ml Trazodone HCl (Desyrel) 100 mg PO HSPRN PRN PRN Reason: Insomnia Last Admin: 09/04/17 20:53 Dose: 100 mg Warfarin Sodium (Coumadin) 7.5 mg PO 1700 [facility] Last Admin: 09/06/17 17:06 Dose: 7.5 mg
--- NOTE | 2017-09-07 15:33 | PDOC.CTH ---
<Erica High - Last Filed: 09/07/17 15:31> Cardiology Progress Note - Subjective The pt seen and examined. No overnight events. No cardiac complaints. - Objective Vital Signs Temp Pulse Resp BP BP Pulse Ox 09/07/17 14:12 93 16 09/07/17 10:54 90 139/80 09/07/17 08:29 96 09/07/17 08:00 100.2 F H 90 22 H 141/78 H 95 09/07/17 04:00 99.8 F H 90 18 162/82 H 92 L Admit Weight 197 lb 1.6 oz Weight 179 lb 4.8 oz 09/06/17 09/07/17 09/08/17 06:59 06:59 06:59 Intake Total 3460 1730 Output Total 4175 950 Balance -715 780 - Physical Examination General/Neuro: alert & oriented x3 Neck: no JVD present Lungs: other: (coases and diminished at bases) Heart: other: (irregular) Abdomen: soft Extremities: other: (no edema) - Telemetry Telemetry Rhythm: Afib 90-100s - Labs Result Diagrams: 09/07/17 05:03 09/07/17 05:03 Troponin/CKMB CK-MB (CK-2) 5.4 ng/mL (0-6.6) 08/22/17 21:02 Troponin I Less than 0.010 ng/mL (< 0.028) 08/22/17 21:02 - Assessment/Plan 1. Chronic afib w/RVR - HR has been stable with Diltiazem 180mg QD, Dig 0.125mg PO daily, and Coreg 6.25,mg PO BID; cont. monitor 2. LLL PNA - on antibiotic; managed by PCP 3. Bilat. PE - on Coumadin and Lovenox due to INR 1.9 today; managed by Salesforce Administrator 4. HTN - stable with Coreg 6.25mg BID; cont. monitor MAR reviewed Review of Systems - Review of Systems Constitutional: reports: no symptoms reported EENTM: reports: no symptoms reported Respiratory: reports: no symptoms reported Cardiac (ROS): reports: no symptoms reported <Ken Lobato - Last Filed: 09/08/17 09:57> Cardiology Progress Note - Objective Vital Signs Temp Pulse Resp BP BP BP Pulse Ox 09/08/17 08:46 99 09/08/17 08:45 149/79 H 09/08/17 07:43 99 20 09/08/17 03:47 99.4 F 97 20 158/76 H 95 09/08/17 03:36 98.8 F 94 20 167/73 H 09/08/17 00:29 96 20 93 L 09/08/17 00:00 99.3 F 84 20 161/79 H 93 L Admit Weight 197 lb 1.6 oz Weight 180 lb 6.4 oz 09/07/17 09/08/17 09/09/17 06:59 06:59 06:59 Intake Total 1730 1920 Output Total 950 1580 Balance 780 340 - Labs Result Diagrams: 09/07/17 05:03 09/07/17 05:03 Troponin/CKMB CK-MB (CK-2) 5.4 ng/mL (0-6.6) 08/22/17 21:02 Troponin I Less than 0.010 ng/mL (< 0.028) 08/22/17 21:02 - Assessment/Plan Pt. seen and eval. by me. I agree with the A/P by the DRAWING SUPERVISOR. Irreg,irreg. chest clear.
[2017-09-07] MEDS: Warfarin Sodium 7.5 MG TAB PO SCH (16:55)
[2017-09-08 04:59] LABS: INR-International Normal Ratio 2.7; Prothrombin Time 29.9 SEC (12.0-14.7)
[2017-09-08] MEDS: Carvedilol 6.25 MG TAB PO SCH (08:45)
[2017-09-08] MEDS: Amoxicillin/Potassium Clav 875 MG TAB PO SCH (08:45)
[2017-09-08] MEDS: Digoxin 0.125 MG TAB PO SCH (08:46)
--- NOTE | 2017-09-08 10:26 | PRG ---
DATE OF SERVICE: 09/08/2017 The patient is doing reasonably well and wants to go home. PHYSICAL EXAMINATION: VITAL SIGNS: Temperature 98.4. There has been no fever in the last 24 hours. Pulse 99, blood press ure 149/79. HEENT: Unremarkable. NECK: No JVD. LUNGS: Clear. CARDIAC: S1 and S2 regular. ABDOMEN: Soft. EXTREMITIES: No edema. LABORATORY DATA: INR 2.7. ASSESSMENT: 1. Pulmonary embolism. 2. Status post pneumonia. RECOMMENDATIONS: 1. The patient should be stable to go home. He needs to follow up with his primary care physician r egarding his anticoagulation therapy. I think 7.5 mg is probably too high of a dose for him to go ho me on and I would probably favor using 5 or 6 mg instead. 2. Would stop the antibiotics after 14 total days. 3. I have asked him to follow up in my office in 2-3 weeks.
--- NOTE | 2017-09-08 13:55 | DIS ---
DATE OF ADMISSION: 08/20/2017 DATE OF DISCHARGE: 09/08/2017 PRIMARY CARE PHYSICIAN: Dr. Junior Washington. DISCHARGE DIAGNOSES: 1. Acute respiratory failure. 2. Community-acquired pneumonia. 3. Pulmonary embolism, bilateral. 4. Atrial fibrillation with rapid ventricular response. 5. Acute kidney injury, resolved. 6. Pleural effusion. PROCEDURES DURING THIS HOSPITALIZATION: 1. Thoracentesis on 08/22/2017 for left pleural effusion. 2. Intubation and mechanical ventilation on 08/23/2017 for respiratory failure. 3. Bronchoscopy on 08/27/2017, which showed a large blood clot in the right main stem bronchus, whic h was lavaged with normal saline and removed. 4. Extubation on 09/01/2017. CONSULTATIONS DURING THIS HOSPITALIZATION: Nephrology, Dr. Patel; Pulmonology, Dr. Forman; and Cardio logy, Dr. Ríos. CONDITION OF PATIENT ON THE DAY OF DISCHARGE: Stable. I assessed Mr. Marie on the day of dischar . He denies any chest pain or shortness of breath. Vital signs are stable. S1 and S2 are heard, regular. Lungs are clear to auscultation bilaterally. HOSPITAL COURSE: Mr. Marie is a pleasant 57-year-old gentleman, who was admitted to [facility] on 08/20/2017 for bilateral pulmonary emboli, community-acquired pneumonia, seps is and atrial fibrillation with rapid ventricular response. He underwent thoracentesis for left-side d pleural effusion on 08/22/2017. He also had an echocardiogram on 08/20/2017, which showed left shashi tricular ejection fraction of 55%-60% and normal right ventricular cavity. Pleural fluid cytology di d not show any evidence of malignancy. On 08/23/2017, he was intubated and mechanically ventilated f or respiratory failure. He had a CT scan of the chest and abdomen on 08/24/2017, which showed bilate ral ground-glass changes in lungs as well as increase in size of the left pleural effusion. On 08/24, he was found to have acute kidney injury. Renal ultrasound done on that day did not show any evidence of hydronephrosis. He had gallbladder sludge. During this hospitalization, he also had robinson rrhea, but was C. difficile negative. On 08/27/2017, he underwent bronchoscopy, which showed a large blood clot in the right main stem bron chus. This was lavaged with normal saline and removed. On 09/01/2017, he was extubated. He was tra nsferred to telemetry floor. He was seen by therapy services during this hospitalization. He contin ued to improve and is being discharged home in a stable condition. He is still on antibiotics and hi s INR levels will need to be monitored closely. He has been advised to stop smoking and to follow up with his primary care physician for monitoring of INR levels. DISCHARGE MEDICATIONS: Augmentin 875 mg 2 times a day for 3 more days, Coreg 6.25 mg 2 times a day, digoxin 0.125 mg daily, Cardizem-CD 180 mg daily, levofloxacin 750 mg daily for 3 days, and warfarin 6 mg daily. Please note that he was also seen by Cardiology for atrial fibrillation with rapid ventricular respon se. He has been started on digoxin and Cardizem-CD. In terms of his INR, he had an INR of 2.7 on the day of discharge. He is currently receiving 7.5 mg of warfarin daily. As mentioned earlier, his INR will need to be closely monitored. DISCHARGE DESTINATION: Home. TOTAL AMOUNT OF TIME SPENT COORDINATING THIS DISCHARGE: 33 minutes. ADDENDUM: Mr. Marie is being discharged home on 6 mg of warfarin daily and not 7.5 mg.
[2017-09-08] MEDS ORDERED: Warfarin Sodium 3 MG TAB PO SCH (17:00)
[2017-09-08 21:04] VITALS: BP 148/86; TEMP 98.4
--- NOTE | 2017-09-11 13:36 | PQF ---
SILVERIO ZARATE RICHA MD [id number] CLINICAL DOCUMENTATION CLARIFICATION FORM: POST DISCHARGE Addendum to original discharge summary date: ____ Late entry note date: __ SILVERIO ZARATE [id number] LAWSON HERNADEZ MD PLEASE DOCUMENT YOUR RESPONSE BELOW PLEASE FAX RESPONSE BACK TO YOUR INPUT IS NEEDED TO CORRECTLY CODE A DIAGNOSIS FOR YOUR PATIENT. DATE: 09/11/2017 ATTN: DR. HERNADEZ Please exercise your independent, professional judgment in responding to the clarification form. Clinical indicators are provided on the bottom of this form for your review Please check appropriate box(s) to clarify if the following diagnosis has been ruled in our ruled out: SEPSIS (CDI/Coding list diagnosis here) [ ] Ruled in diagnosis [ ] Continue to treat [ ] Resolved [ ] Ruled out diagnosis [ ] Cannot rule out diagnosis [ ] Other diagnosis [ ] Unable to determine In addition, please specify: Present on Admission (POA): [ ] Yes [ ] No [ ] Unable to determine For continuity of documentation, please document condition throughout progress notes and discharge summary. Thank You. CLINICAL INDICATORS - SIGNS / SYMPTOMS / LABS: VITALS: BP:120/74, PULSE:88, RESP: 24, TEMP:98.5 H&P: SEPSIS - ANTIBIOTICS, CONTINUE GENTLE IV FLUIDS AND SEPSIS PROTOCOL 08/27 PN: SEPSIS SYNDROME - CURRENTLY ON EMPIRIC ANTIBIOTICS DS: ACUTE RESPIRATORY FAILURE PULMONARY EMBOLISM PNEUMONIA RISK FACTORS: ARF PE RESPIRATORY FAILURE TREATMENT: ANTIBIOTICS (This form is maintained as a part of the permanent medical record) 2014 [employer], [employer]. All Rights Reserved Sola Vail, CADENCE, COVER CUTTER-H [email or web address] [phone] [email or web address]
--- NOTE | 2017-09-18 19:01 | EKG ---
Test Reason : AFIB Blood Pressure : / mmHG Vent. Rate : 145 BPM Atrial Rate : 187 BPM P-R Int : 000 ms QRS Dur : 092 ms QT Int : 254 ms P-R-T Axes : 000 068 -07 degrees QTc Int : 394 ms Atrial fibrillation with rapid ventricular response Incomplete right bundle branch block Nonspecific ST abnormality Abnormal QRS-T angle, consider primary T wave abnormality Abnormal ECG When compared with ECG of 19-AUG-2017 22:34, Atrial fibrillation has replaced Sinus rhythm Vent. rate has increased BY 64 BPM Incomplete right bundle branch block is now Present Confirmed by DR. Maryan GARAY ([id number]) on 09/18/2017 7:01:17 PM Referred By: JULIAN Confirmed By:DR. Maryan GARAY
== END 2017-09-08 14:50 | disposition home or self-care (01) | DRG 207 ==
LOC: ERS 22:08 → ERHOLD 08-20 00:50 → 2NO 08-20 01:21 → IMCU/EMU 08-20 17:40 → 2NO 08-21 00:10 → IMCU/EMU 08-22 21:42 → CCU 08-23 03:33 → 2NO 09-02 18:34
PROVIDERS: ADMIT Internal Medicine; ATTEND Internal Medicine
PROC: 0W9B3ZX Drainage of Left Pleural Cavity, Percutaneous Approach, Diagnostic (ICD-10-PCS; 2017-08-22)
PROC: 5A1955Z Respiratory Ventilation, Greater than 96 Consecutive Hours (ICD-10-PCS; principal; 2017-08-23)
PROC: 0BH17EZ Insertion of Endotracheal Airway into Trachea, Via Natural or Artificial Opening (ICD-10-PCS; 2017-08-23)
PROC: 0BC38ZZ Extirpation of Matter from Right Main Bronchus, Via Natural or Artificial Opening Endoscopic (ICD-10-PCS; 2017-08-27)
DX: I26.99 Other pulmonary embolism without acute cor pulmonale (principal); J69.0 Pneumonitis due to inhalation of food and vomit; G93.41 Metabolic encephalopathy; J90 Pleural effusion, not elsewhere classified; N17.9 Acute kidney failure, unspecified; J96.01 Acute respiratory failure with hypoxia; D68.9 Coagulation defect, unspecified; E87.1 Hypo-osmolality and hyponatremia; F17.210 Nicotine dependence, cigarettes, uncomplicated; I10 Essential (primary) hypertension; J44.9 Chronic obstructive pulmonary disease, unspecified; I48.0 Paroxysmal atrial fibrillation; T45.515A Adverse effect of anticoagulants, initial encounter; E87.5 Hyperkalemia
CPT/HCPCS: 36415; 36416; 71045; 71250; 74177; 76770; 80048; 80053; 80162; 80202; 81001; 82150; 82533; 82553; 82565; 82570; 82805; 82945; 83615; 83630; 83735; 83930; 83935; 83986; 84157; 84300; 84443; 84478; 84484; 85014; 85018; 85025; 85049; 85060; 85610; 85730; 86850; 86900; 86901; 87040; 87070; 87116; 87205; 87206; 87324; 87449; 88112; 88305; 89051; 93005; 93010; 93306; 94002; 94003; 94640; 94660; 96374; 96375; 96376; A4216; C9113; G8978-GP-CK; G8979-GP-CI; G8987-GO-CJ; G8988-GO-CH; J0692; J1160; J1642; J1650; J1940; J1956; J2001; J2060; J2250; J2270; J2543; J2704; J2765; J2920; J3010; J3370; J3430; J3475; J7050; J7620; P9047